=== PATIENT | female | born 1945 | race Caucasian/White ===

== ENCOUNTER 2021-04-18 12:00 | Outpatient (RCR) | payer MEDICARE, SELFPAY ==
--- NOTE | 2021-03-14 10:58 | HP.PTEVAL_ITS ---
Patient's Visit Information IVANA HERNANDEZ is a 75 year old F referred to Physical Therapy by Moody Parker, CLAY-C with a diagnosis of GAIT APRAXIA. Date of Evaluation: 03/14/21 Physical Therapist: Lennie Paredes, PT, Cert MDT - Visit Plan Frequency: 2x /Week Duration: 4-6 Weeks Plan: *FALL RISK* USE GAIT BELT. PATIENT IS RELUCTANT TO HAVE PT BUT WILLING. PT 2X'S A WEEK X 4-5 WEEKS FOR GAIT AND BALANCE TRAINING. CORE STABILITY WITH A NEUTRAL SPINE. BRIANNE LE ROM, STRETCHING AND STRENGTHENING. WRITTEN HEP INST. - Subjective Work/Leisure: RETIRED. Present symptoms: NO PAIN. PATIENT REPORTS SHE FELL A COUPLE TIMES BUT HASN'T FALLEN FOR THE LAST MONTH SINCE USING CANE. STATES SHE HAS FALLEN AT HER HOUSE AND AT [employer]. STATES SHE CAN'T GET UP ON HER OWN DUE TO HAVING BAD KNEES BUT DENIES INJURIES IN THE FALLS EXCEPT BRUISING AND KNEE SWELLING. DIDN'T GO TO DOCTOR UNTIL ABOUT 3 WEEKS AFTER FALL. HER DAUGHTER IS WITH HER TODAY AND REPORTS THAT THEY WANT HER MOM TO BE MORE STABLE. PATIENT REPORTS SHE LIVES A LONE AND DOES HER OWN SHOPPING. STATES SHE IS USING HER CANE ALMOST ALL THE TIME NOW EXCEPT A LITTLE BIT IN HER LIVING ROOM. Present since: BALANCE PROBLEMS FOR ABOUT 6 MONTHS. Commenced as a result of: PATIENT RELATES HER FALLS TO JUST LOSING HER BALANCE. NO DIZZINESS. STATES SHE GOT HER FEET MIXED UP. Previous history/Previous treatment: PATIENT REPORTS HAVING PT AT [facility] IN 2017 FOR BACK WEAKNESS. Gait: HAS BEEN USING A CANE FOR ABOUT A MONTH NOW. PATIENT REPORTS SHE FEELS STEADY WITH THE CANE. PATIENT REPORTS SHE IS MORE CAREFUL WALKING NOW BUT REALLY ISN'T WORRIED ABOUT FALLINIG ANYMORE NOW THAT SHE HAS THE CANE. Accidents: NO. Unexplained weight loss: NO. Imaging: NONE RECENT. PMH/Recent major surgery: L ANKLE ORIF YEARS AGO - IT SWELLS A LOT. BRIANNE SHLD LIMITATIONS. PATIENT REPORTS HER RIGHT KNEE HAS BEEN BAD FOR A LONG TIME AND SHE PROBABLY NEEDS IT REPLACED. OTHER: PATIENT REPORTS SHE IS HERE BECAUSE HER PRACTITIONER WANTS HER TO COME TO STRENGTHEN HER LEGS BUT STATES DUE TO PAST HISTORY WITH PT FOR POLIO SHE DOESN'T LIKE TO DO PT. OTHER: NO STEPS AT HOME. - Objective THIS PATIENT AMBULATES INDEP'LY INTO PT WITH A STRAIGHT CANE IN HER RIGHT UE. HER CANE IS THE RIGHT HEIGHT AND SHE IS SEQUENCING WELL. NO LOB. SHE WALKS WITH DECREASED CADANCE, DECREASED BRIANNE STRIDE LENGTH AND INCREASED TRUNK FLEXION. SIGNIFICANT GENU VALGUS RIGHT LE. L ANKLE EDEMA. STRENGTH: CORE STRENGTH - POOR. RIGHT LE: HIP 4-/5, KNEE 4-/5, ANKLE 5/5. LLE: HIP 4-/5, KNEE 5/5, ANKLE 4/5. ROM: PATIENT HAS TIGHTNESS OF BRIANNE HIP FLEXORS AND BRIANNE GASTROC SOLEUS COMPLEX'S LEFT > RIGHT. SHE IS ONLY ABLE TO SL BALANCE ON EACH LE FOR 1-2 SEC'S. - Goals Goal 1:: PATIENT WILL BE INDEP AND SAFE WITH GAIT ON LEVEL SURFACES WITH STRAIGHT CANE COMMUNITY DISTANCES. Goal Time Frame: 4-6 Weeks Goal 2:: PATIENT WILL BE INDEP WITH A HEP FOR CONTINUED IMPROVEMENT ONCE FORMAL PHYSICAL THERAPY CONCLUDES. Goal Time Frame: 4-6 Weeks - Anticipated Interventions Patient/Client Instruction: Educate patient on: Condition, Plan of Care, Risk Factors For the Purpose of:: To improve self management Therapeutic Exercise to Include: Strength training, Balance training, Postural training, Flexibilty training, Gait and locomotor training, Neuromotor development, Dynamic Lumbar Stabilization For the Purpose of:: To increase ROM, To improve muscle performance and motor function, To increase tolerance to activity/condition/position, To improve ability of physical actions for home/community/work/leisure, To improve gait and locomotor functions Thank you for the opportunity to evaluate your patient. For Medicare and Medicare HMO plans, please review the plan of care and approve it. It will need to be FAXED BACK to us at [phone] for Medicare purposes. For Medicare only, by signing this I certify the plan of care. Please let me know if there are questions or concerns regarding this plan of care. Physician Signature: Date:
--- NOTE | 2021-04-18 12:24 | HP.PTDCSUM ---
It has been my pleasure to treat IVANA HERNANDEZ referred by Moody Parker, CLAY-C, with the diagnosis of GAIT APRAXIA for a total of 9 visit(s). Discharge Date: Please see the following information for a summary of their discharge status. Subjective: I AM WALKING A LOT BETTER. PATIENT REPORTS SHE IS READY TO BE DONE WITH PT. STATES SHE ENDED UP ENJOYING PT. DOING HEP. % Improvement: 80 Objective/Function: PATIENT WAS SEEN TODAY FOR RE-ASSESSMENT OF PROGRESS TOWARD THE SET PT GOALS AND THE NEED FOR FURTHER PHYSICAL THERAPY VS READINESS FOR DISCHARGE. PATIENT IS MAKING GOOD PROGRESS WITH PT AND WANTS TO BE DISCHARGED. THIS PT RECOMMENDS CONTINUED USE OF CANE FOR SAFETY AND PATIENT IS AGREEABLE. UPON EXAM TODAY: STRENGTH: CORE STRENGTH - POOR. RIGHT LE: HIP 4/5, KNEE 4/5, ANKLE 5/5. LLE: HIP 4/5, KNEE 5/5, ANKLE 4/5. ROM: PATIENT HAS TIGHTNESS OF BRIANNE HIP FLEXORS AND BRIANNE GASTROC SOLEUS COMPLEX'S LEFT > RIGHT. SHE IS NOW ABLE TO SL BALANCE ON THE RIGHT LE X >10 SEC AND LEFT X 4 SEC WITHOUT UE ASSIST. TUG TEST 10.12 SEC. Goal 1:: PATIENT WILL BE INDEP AND SAFE WITH GAIT ON LEVEL SURFACES WITH STRAIGHT CANE COMMUNITY DISTANCES. Goal Progress: Progressing Goal 2:: PATIENT WILL BE INDEP WITH A HEP FOR CONTINUED IMPROVEMENT ONCE FORMAL PHYSICAL THERAPY CONCLUDES. Goal Progress: Progressing Plan: D/C - PATIENT AGREEABLE. If there are questions or concerns regarding this patient's physical therapy, please feel free to call me at [phone]. Thank you for the referral of this patient. Sincerely, Lennie Paredes, PT, Cert MDT Balance/Gait/Functional tests - Balance/Special Test Scores Lower Extremity Functional Score: 43
== END 2021-04-18 13:45 | disposition home or self-care (01) ==
LOC: PT 12:00
PROVIDERS: PCP Family Medicine; Referring Provider Nurse Practitioner Family; Visit Provider Nurse Practitioner Family
DX: R48.2 Apraxia (principal)
CPT/HCPCS: 97110; 97116; 97162; 97164; 97530

== ENCOUNTER → 2021-12-11 | Outpatient (CLI) | payer MEDICARE, SELFPAY ==
--- NOTE | 2021-12-11 09:47 | RAD_ITS ---
STUDY: XR Shoulder Min 2 Views REASON FOR EXAM: Female, 76 years old. PAIN TECHNIQUE: XR Shoulder Min 2 Views LEFT COMPARISON: None. FINDINGS: There is moderate degenerative arthrosis of the glenohumeral articulation. There is degenerative arthrosis of the acromioclavicular joint without inferior osseous spur formation. Normal acromion. There is an enthesopathic erosion of the humeral head. The soft tissue structures are unremarkable. Normal visualized pulmonary apex. RAD/Shoulder min 2 Views IMPRESSION: Elevated left humeral head with eburnation of the acromion suggest a chronic rotator cuff tear. Electronically Signed: Paul Shipman MD at 19:12 EDT ,
--- NOTE | 2021-12-11 09:47 | RAD_ITS ---
STUDY: XR Hand Min 3 Views REASON FOR EXAM: Female, 76 years old. PAIN TECHNIQUE: XR Hand Min 3 Views LEFT COMPARISON: None. FINDINGS: Normal radiocarpal articulation. Normal distal radioulnar joint. Normal visualized carpal bones. Normal carpal articulations Normal carpometacarpal articulation of the thumb. Normal second through fifth carpometacarpal joints. Normal metacarpi. Normal metacarpophalangeal joint of the thumb. Normal interphalangeal joint of the thumb. Normal proximal and distal phalanges of the thumb. Normal metacarpophalangeal joints of the second through fifth fingers. There is diffuse articular joint space narrowing of the distal interphalangeal joints of the second through fifth fingers, but without erosive changes or periarticular soft tissue swelling. Normal phalanges of the second through fifth fingers. 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 RAD/Hand Min 3 Views IMPRESSION: There is diffuse articular joint space narrowing of the distal interphalangeal joints of the second through fifth fingers, but without erosive changes or periarticular soft tissue swelling. Electronically Signed: Paul Shipman MD at 19:13 EDT Reading Location ID and State: [facility] / [place] , Service support ,
--- NOTE | 2021-12-11 09:47 | RAD_ITS ---
STUDY: XR Hand Min 3 Views REASON FOR EXAM: Female, 76 years old. PAININFLAMMATORY POLYARTHROPATHY TECHNIQUE: XR Hand Min 3 Views RIGHT COMPARISON: None. FINDINGS: Normal radiocarpal articulation. Normal distal radioulnar joint. Normal visualized carpal bones. Normal carpal articulations Normal carpometacarpal articulation of the thumb. Normal second through fifth carpometacarpal joints. Normal metacarpi. Normal metacarpophalangeal joint of the thumb. Normal interphalangeal joint of the thumb. Normal proximal and distal phalanges of the thumb. Normal metacarpophalangeal joints of the second through fifth fingers. There is diffuse articular joint space narrowing of the distal interphalangeal joints of the second through fifth fingers, but without erosive changes or periarticular soft tissue swelling. There is subluxation of the 3rd distal digit toward the radial side. The soft tissue structures are unremarkable. RAD/Hand Min 3 Views IMPRESSION: There is diffuse articular joint space narrowing of the distal interphalangeal joints of the second through fifth fingers, but without erosive changes or periarticular soft tissue swelling. There is subluxation of the 3rd distal digit toward the radial side. Electronically Signed: Paul Shipman MD at 19:14 EDT Reading Location ID and State: [facility] / [place] , Service support ,
--- NOTE | 2021-12-11 09:47 | RAD_ITS ---
STUDY: XR Shoulder Min 2 Views REASON FOR EXAM: Female, 76 years old. PAIN TECHNIQUE: XR Shoulder Min 2 Views RIGHT COMPARISON: None. FINDINGS: Normal glenohumeral articulation. Normal acromioclavicular joint. Normal acromion. Normal humeral head and visualized proximal humerus. The soft tissue structures are unremarkable. Normal visualized pulmonary apex. RAD/Shoulder min 2 Views IMPRESSION: There are no acute findings of the shoulder. Electronically Signed: Paul Shipman MD at 19:12 EDT ,
[2021-12-11 12:16] LABS: Erythrocyte Sedimentation Rate 12 mm/hr (0-30)
[2021-12-11 12:21] LABS: Absolute Lymphocyte Count 2.52 X10^3/uL (0.83-4.51); Absolute Neutrophil Count 5.8 X10^3/uL (2.0-7.7); Basophil% 1.1 % (0-1); Eosinophil# 0.26 X10^3/uL; Eosinophils% 2.7 % (0-5); Hematocrit 40.3 % (37-47); Hemoglobin 13.5 g/dL (12.0-15.0); Lymphocyte # 2.52 X10^3/ul (0.83-4.51); Lymphocyte % 26.5 % (19-41); Mean Corp Hgb Conc 33.5 g/dL (32-36); Mean Corpuscular Volume 95.5 fL (81-99); Mean Platelet Vol. 10.7 fl (6.2-12.0); Monocyte# 0.74 X10^3/uL; Monocyte% 7.8 % (0-10); NRBC Flagged by Analyzer 0 % (0-5); Neutrophil # 5.84 X10^3/uL (2.7-7.7); Neutrophil % 61.4 % (47-70); Platelet Count 273 K/mm3 (150-450); RBC Distribution Width CV 12.5 % (11.6-14.6); RBC Distribution Width SD 43.8 fl (35.1-43.9); Red Blood Count 4.22 M/mm3 (4.2-5.4); White Blood Count 9.5 K/mm3 (4.4-11.0)
[2021-12-11 12:56] LABS: ALB/GLOB Ratio 1.1 RATIO (0.9-2.4); AST(SGOT) 17 U/L (15-37); Alanine Aminotransfer ALT/SGPT 22 U/L (13-56); Albumin, Serum 3.7 g/dL (3.2-5.0); Alkaline Phosphatase 79 U/L (45-117); Anion Gap 5 (5-15); BUN 23 mg/dL (7-18); CRP < 2.90 mg/L (0.0-3.0); Calcium,Total 8.9 mg/dL (8.5-10.1); Chloride 105 mmol/L (98-107); Creatinine, Serum 0.88 mg/dL (0.55-1.02); EST Glomerular Filtration Rate 66 mL/min (>60); Est Glom Filt Rate - Afr Amer 80 mL/min (>60); Globulin 3.3 g/dL (2.2-4.2); Glucose 99 mg/dL (74-106); Potassium 4.1 mmol/L (3.5-5.1); Rheumatoid Factor < 10.0 IU/mL (<15); Sodium Level 137 mmol/L (136-145)
[2021-12-11 13:31] LABS: Hepatitis B Surface Antibody Non-Reactive; Hepatitis B Surface Antigen Non-Reactive (Nonreactive); Hepatitis C Antibody Non-Reactive (Nonreactive)
[2021-12-12 18:10] LABS: ANTINUCLEAR ANTIBODIES DIRECT Negative (Negative)
[2021-12-13 10:03] LABS: CCP IgG Antibodies < 1 units (0-19)
== END | disposition home or self-care (01) ==
LOC: MTLAB 09:45
PROVIDERS: PCP Nurse Practitioner Family; Referring Provider Internal Medicine Rheumatology; Visit Provider Internal Medicine Rheumatology
DX: M06.4 Inflammatory polyarthropathy (principal); E11.22 Type 2 diabetes mellitus with diabetic chronic kidney disease; M19.041 Primary osteoarthritis, right hand; M18.0 Bilateral primary osteoarthritis of first carpometacarpal joints; M17.0 Bilateral primary osteoarthritis of knee; M47.897 Other spondylosis, lumbosacral region; M21.41 Flat foot [pes planus] (acquired), right foot; M81.0 Age-related osteoporosis without current pathological fracture; G25.81 Restless legs syndrome; I12.9 Hypertensive chronic kidney disease with stage 1 through stage 4 chronic kidney disease, or unspecified chronic kidney disease; E78.5 Hyperlipidemia, unspecified; N18.9 Chronic kidney disease, unspecified
CPT/HCPCS: 36415; 73030; 73130; 80053; 85025; 85652; 86038; 86140; 86200; 86431; 86706; 86803; 87340

== ENCOUNTER 2021-12-18 09:00 | Outpatient (RCR) | payer MEDICARE, SELFPAY ==
--- NOTE | 2021-11-14 09:57 | HP.PTEVAL ---
Patient's Visit Information IVANA HERNANDEZ is a 76 year old F referred to Physical Therapy by Dr. Payam Harris MD with a diagnosis of LUMBAR SPINAL STENOSIS. Date of Evaluation: 11/14/21 Physical Therapist: Lennie Paredes PT, Cert MDT - Visit Plan Frequency: 2-3x /Week Duration: 4-6 Weeks Plan: GAIT TRAINING. POSTURE CORRECTION/STRENGTHENING, INSTRUCTION IN APPROPRIATE BODY MECHANICS AND ACTIVITY MODIFICATIONS. DLS STARTING WITH A NEUTRAL SPINE PROGRESSING ROM TOLERATED. BRIANNE LE ROM, STRETCHING AND STRENGTHENING. HEP INSTRUCTION. - Subjective PATIENT REPORTS SHE HAS BEEN DOING PRETTY GOOD. STATES SHE WENT TO DR. MENJIVAR FOR HER KNEE AND IT IS OK. WENT TO DR. HARRIS TOO AND SINCE HER KNEE IS OK THEY ARE CHECKING OUT HER BACK. Work/Leisure: RETIRED. Present symptoms: PATIENT REPORTS HER LOW BACK GETS TIRED BUT SHE WOULDN'T CALL IT PAIN. STATES SHE GOES AND DOES WHATEVER SHE WANTS BUT SOMETIMES HER NEEDS A BREAK. Present since: CHRONIC - LONG LONG TIME - I WAS STILL WORKING. Pain Scale: DENIES PAIN. Commenced as a result of: NO APPARENT REASON. Symptoms at onset: LOW BACK GETS TIRED. Worse: WALKING. Better: SITTING. Disturbed sleep: NO. Previous history/Previous treatment: MAYBE PT A LONG TIME AGO. NO BACK SURGERY. NO BACK INJECTIONS. NO CHIROPRACTOR. Coughing/sneezing/straining: NEGATIVE. Gait: UNLIMITED AND PAINFREE PER PATIENT REPORT BUT USES CANE OUTSIDE OF HOME. NO FALLS SINCE HAVING PT ABOUT A YEAR AGO FOR BALANCE. Difficulty initiating urination: NO. DENIES BOWEL AND BLADDER DYSFUNCTION EXCEPT SOME INCONTINENCE. Unexplained weight loss: NO. Imaging: BACK X-RAY A LONG TIME AGO. PMH/Recent major surgery: L ANKLE ORIF YEARS AGO - IT SWELLS A LOT. BRIANNE SHLD LIMITATIONS. PATIENT REPORTS HER RIGHT KNEE HAS BEEN BAD FOR A LONG TIME AND SHE PROBABLY NEEDS IT REPLACED BUT DR. HARRIS AND DR. MENJIVAR JUST CHECKED IT OUT AND SAID IT IS OK. OTHER: PATIENT STATES I DON'T KNOW WHY HE SENT ME OVER HERE SO SOON. I THINK I SHOULD HAVE HAD MRI FIRST. WILLING TO TRY PT THOUGH. APPOINTMENT PENDING WITH DR. ASH 10/28/21. H/O POLIO. LIVES ALONE. NO STEPS AT HOME. - Objective Sitting/Standing Posture: POOR. Lordosis: REDUCED. Active Correction of posture: NE BUT ONLY ABLE TO PARTIALLY CORRECT. PATIENT STATES THAT FEELS GOOD WHEN SUPPORT WAS PLACED IN LOW BACK IN SITTING. Other Observations: INDEP GAIT INTO PT WITH FAIR CADANCE, RIGHT KNEE GENU VALGUS, NO LOB, INCREASED TRUNK FLEXION AND USE OF STRAIGHT CANE. ABLE TO INDEP'LY TRANSFER FROM SIT TO STAND WITHOUT UE ASSIST. Motor deficit: BRIANNE LE'S GROSSLY 5/5 WITH MMT'ING EXCEPT HIPS 4/5. Sensory deficit: BRIANNE LE LIGHT TOUCH SENSATION GROSSLY INTACT AND SYMMETRICAL. ROM deficit: B HIP FLEXOR AND GASTROC SOLEUS COMPLEX TIGHTNESS. APPROX 25% DECREASED L ANKLE ROM COMPARED TO RIGHT. Dural Signs: NEGATIVE BRIANNE LE'S. Lumbar mvmt loss: flex - NIL. ext - SHAHEED. R SG - SHAHEED. L SG - MOD. PATIENT C/O STIFFNESS WITH LUMBAR EXTENSION TESTING BUT OTHERWISE DENIES SX'S WITH TESTING. OTHER: SLS TEST - PATIENT IS UNABLE TO SLS ON EITHER LE FOR MORE THAN 1-2 SEC WITHOUT UE ASSIST. Core strength: POOR. Palpation: NO ACUTE BACK OR HIP TENDERNESS. TREATMENT: NEUROMUSCULAR REEDUCATION - RETRAINING OF MVMT AND POSTURE FOR SITTING, LYING AND STANDING ACTIVITIES. - Balance/Special Test Scores Oswestry Low Back Score: 4 TUG Test Time Seconds: 11.43 30 Second Chair Rise Test Seconds: 9 - Goals Goal 1:: DECREASE C/O BACK FEELING TIRED WITH PROLONGED WALKING. Goal Time Frame: 4-6 Weeks Goal 2:: PATIENT WILL COMPLETE 13 STANDS IN 30 SECS TO DEMONSTRATE IMPROVED FUNCTIONAL STRENGTH Goal Time Frame: 4-6 Weeks Goal 3:: PATIENT WILL COMPLETE TUG IN 10 SECS TO DEMONSTRATE IMPROVED GAIT STABILITY Goal 4:: PATIENT WILL BE INDEP WITH A HEP FOR CONTINUED IMPROVEMENT ONCE FORMAL PHYSICAL THERAY CONCLUDES. Goal Time Frame: 4-6 Weeks - Anticipated Interventions Patient/Client Instruction: Educate patient on: Condition, Plan of Care, Risk Factors For the Purpose of:: To improve self management Therapeutic Exercise to Include: Strength training, Body mechanics, Postural training, Flexibilty training, Gait and locomotor training, Neuromotor development, Dynamic Lumbar Stabilization For the Purpose of:: To decrease pain, To improve muscle performance and motor function, To increase tolerance to activity/condition/position, To improve ability of physical actions for home/community/work/leisure, To improve gait and locomotor functions Thank you for the opportunity to evaluate your patient. For Medicare and Medicare O plans, please review the plan of care and approve it. It will need to be FAXED BACK to us at [phone] for Medicare purposes. For Medicare only, by signing this I certify the plan of care. Please let me know if there are questions or concerns regarding this plan of care. Physician Signature: Date:
--- NOTE | 2021-12-18 09:31 | HP.PTDCSUM_ITS ---
It has been my pleasure to treat IVANA HERNANDEZ referred by Dr. Payam Harris MD, with the diagnosis of LUMBAR SPINAL STENOSIS for a total of 8 visit(s). Discharge Date: Please see the following information for a summary of their discharge status. Subjective: PATIENT REPORTS SHE IS DOING GOOD AND DOES NOT FEEL SHE NEEDS ANY MORE PT AT THIS TIME. SHE REPORTS COMPLIANCE WITH HER HEP. PATIENT REPORTS SHE FEELS A LOT BETTER SINCE HAVING THERAPY THIS TIME. SHE REPORTS WALKING AND SLEEPING ARE GOING BETTER. SHE REPORTS SHE IS WALKING A LOT AT [facility]. Lumbar Spine Pain Intensity (Out of 10): 8 % Improvement: 60 Objective/Function: PATIENT WAS SEEN TODAY FOR RE-ASSESSMENT OF PROGRESS TOWARD THE SET PT GOALS AND THE NEED FOR FURTHER PHYSICAL THERAPY VS READINESS FOR DISCHARGE. HER TUG TEST AND 30 SEC CHAIR STAND TEST HAVE IMPROVED SINCE INITIAL EVAL. UPON EXAM TODAY: INDEP GAIT INTO PT WITH FAIR CADANCE, RIGHT KNEE GENU VALGUS, NO LOB, INCREASED TRUNK FLEXION AND USE OF STRAIGHT CANE. ABLE TO INDEP'LY TRANSFER FROM SIT TO STAND WITHOUT UE ASSIST. Motor deficit: BRIANNE LE'S GROSSLY 5/5 WITH MMT'ING EXCEPT HIPS 4/5. Sensory deficit: BRIANNE LE LIGHT TOUCH SENSATION GROSSLY INTACT AND SYMMETRICAL. ROM deficit: B HIP FLEXOR AND GASTROC SOLEUS COMPLEX TIGHTNESS. APPROX 25% DECREASED L ANKLE ROM COMPARED TO RIGHT. Dural Signs: NEGATIVE BRIANNE LE'S. Lumbar mvmt loss: flex - NIL. ext - SHAHEED. R SG - SHAHEED. L SG - MOD. PATIENT C/O STIFFNESS WITH LUMBAR EXTENSION TESTING BUT OTHERWISE DENIES SX'S WITH TESTING. OTHER: SLS TEST - PATIENT IS UNABLE TO SLS ON EITHER LE FOR MORE THAN 2-3 SEC WITHOUT UE ASSIST. Core strength: POOR. Palpation: NO ACUTE BACK OR HIP TENDERNESS. HER HEP INCLUDES THE FOLLOWING (WRITTEN HEP PROVIDED): AB Bracing 5, 2x12. Supine Brianne LE Dural Stretching 2x12 ea. AB bracing with marches 2x12. Supine iso hip add with pillow, 5 sec 2x12. Bridging 2x12. Sdly clams 2x12. Sdly reverse clams 2x12. Seated clamshells OTB 2x12. Seated OTB HS Curls. Standing hip abd 2x10 brianne Goal 1:: DECREASE C/O BACK FEELING TIRED WITH PROLONGED WALKING. Goal Progress: Goal Met Goal 2:: PATIENT WILL COMPLETE 13 STANDS IN 30 SECS TO DEMONSTRATE IMPROVED FUNCTIONAL STRENGTH Goal Progress: Progressing Goal 3:: PATIENT WILL COMPLETE TUG IN 10 SECS TO DEMONSTRATE IMPROVED GAIT STABILITY Goal Progress: Goal Met Goal 4:: PATIENT WILL BE INDEP WITH A HEP FOR CONTINUED IMPROVEMENT ONCE FORMAL PHYSICAL THERAY CONCLUDES. Goal Progress: Goal Met Plan: D/C TO HEP. PATIENT AGREEABLE. If there are questions or concerns regarding this patient's physical therapy, please feel free to call me at [phone]. Thank you for the referral of this patient. Sincerely, Lennie Paredes, PT, Cert MDT Balance/Gait/Functional tests - Balance/Special Test Scores Oswestry Low Back Score: 4 TUG Test Time Seconds: 9.97 Tug Test: <10 sec.=free mobile 30 Second Chair Rise Test Seconds: 11
== END 2021-12-18 09:33 | disposition home or self-care (01) ==
LOC: PT 09:00
PROVIDERS: PCP Family Medicine; Referring Provider Specialist; Visit Provider Specialist
DX: M48.07 Spinal stenosis, lumbosacral region (principal)
CPT/HCPCS: 97110; 97112; 97162; 97164

== ENCOUNTER → 2022-02-09 | Outpatient (CLI) | payer MEDICARE, SELFPAY ==
[2022-02-09 09:54] LABS: Absolute Lymphocyte Count 2.77 X10^3/uL (0.83-4.51); Absolute Neutrophil Count 5.2 X10^3/uL (2.0-7.7); Basophil# 0.08 X10^3/uL; Basophil% 0.9 % (0-1); Eosinophil# 0.29 X10^3/uL; Eosinophils% 3.2 % (0-5); Hematocrit 38.7 % (37-47); Hemoglobin 12.6 g/dL (12.0-15.0); Lymphocyte # 2.77 X10^3/ul (0.83-4.51); Lymphocyte % 30.3 % (19-41); Mean Corp Hgb Conc 32.6 g/dL (32-36); Mean Corpuscular Volume 98.2 fL (81-99); Mean Platelet Vol. 10.2 fl (6.2-12.0); Monocyte# 0.76 X10^3/uL; Monocyte% 8.3 % (0-10); NRBC Flagged by Analyzer 0 % (0-5); Neutrophil # 5.18 X10^3/uL (2.7-7.7); Neutrophil % 56.5 % (47-70); Platelet Count 260 K/mm3 (150-450); RBC Distribution Width CV 12.1 % (11.6-14.6); RBC Distribution Width SD 43.4 fl (35.1-43.9); Red Blood Count 3.94 M/mm3 (4.2-5.4); White Blood Count 9.2 K/mm3 (4.4-11.0)
[2022-02-09 10:47] LABS: ALB/GLOB Ratio 1.1 RATIO (0.9-2.4); AST(SGOT) 16 U/L (15-37); Alanine Aminotransfer ALT/SGPT 19 U/L (13-56); Albumin, Serum 3.5 g/dL (3.2-5.0); Alkaline Phosphatase 59 U/L (45-117); Anion Gap 9 (5-15); BUN 24 mg/dL (7-18); Calcium,Total 9.2 mg/dL (8.5-10.1); Chloride 104 mmol/L (98-107); Creatinine, Serum 0.75 mg/dL (0.55-1.02); EST Glomerular Filtration Rate 80 mL/min (>60); Est Glom Filt Rate - Afr Amer 97 mL/min (>60); Globulin 3.3 g/dL (2.2-4.2); Glucose 111 mg/dL (74-106); Potassium 3.8 mmol/L (3.5-5.1); Protein, Total 6.8 g/dL (6.4-8.2); Sodium Level 139 mmol/L (136-145)
== END | disposition home or self-care (01) ==
LOC: MTLAB 09:08
PROVIDERS: PCP Nurse Practitioner Family; Referring Provider Internal Medicine Rheumatology; Visit Provider Internal Medicine Rheumatology
DX: M06.4 Inflammatory polyarthropathy (principal); E11.22 Type 2 diabetes mellitus with diabetic chronic kidney disease; I12.9 Hypertensive chronic kidney disease with stage 1 through stage 4 chronic kidney disease, or unspecified chronic kidney disease; M19.041 Primary osteoarthritis, right hand; M18.0 Bilateral primary osteoarthritis of first carpometacarpal joints; M17.0 Bilateral primary osteoarthritis of knee; M47.897 Other spondylosis, lumbosacral region; M21.41 Flat foot [pes planus] (acquired), right foot; M21.42 Flat foot [pes planus] (acquired), left foot; M81.0 Age-related osteoporosis without current pathological fracture; G25.81 Restless legs syndrome; N18.9 Chronic kidney disease, unspecified; E78.5 Hyperlipidemia, unspecified; Z79.899 Other long term (current) drug therapy
CPT/HCPCS: 36415; 80053; 85025

== ENCOUNTER → 2022-04-06 | Outpatient (CLI) | payer MEDICARE, SELFPAY ==
[2022-04-06 10:05] LABS: Absolute Lymphocyte Count 2.72 X10^3/uL (0.83-4.51); Absolute Neutrophil Count 4.8 X10^3/uL (2.0-7.7); Basophil# 0.08 X10^3/uL; Basophil% 0.9 % (0-1); Eosinophils% 5.5 % (0-5); Hematocrit 38.3 % (37-47); Lymphocyte # 2.72 X10^3/ul (0.83-4.51); Lymphocyte % 29.7 % (19-41); Mean Corp Hgb Conc 33.9 g/dL (32-36); Mean Corpuscular Hgb 33.6 pg (27.0-32.0); Mean Platelet Vol. 10.1 fl (6.2-12.0); Monocyte# 0.97 X10^3/uL; Monocyte% 10.6 % (0-10); NRBC Flagged by Analyzer 0 % (0-5); Neutrophil # 4.83 X10^3/uL (2.7-7.7); Neutrophil % 52.6 % (47-70); Platelet Count 245 K/mm3 (150-450); RBC Distribution Width SD 49.6 fl (35.1-43.9); Red Blood Count 3.87 M/mm3 (4.2-5.4); White Blood Count 9.2 K/mm3 (4.4-11.0)
[2022-04-06 10:34] LABS: AST(SGOT) 21 U/L (15-37); Alanine Aminotransfer ALT/SGPT 22 U/L (13-56); Albumin, Serum 3.4 g/dL (3.2-5.0); Alkaline Phosphatase 71 U/L (45-117); Anion Gap 5 (5-15); BUN 21 mg/dL (7-18); BUN/Creat Ratio 25.9 RATIO (10-20); Calcium,Total 9.6 mg/dL (8.5-10.1); Chloride 104 mmol/L (98-107); Creatinine, Serum 0.81 mg/dL (0.55-1.02); EST Glomerular Filtration Rate 73 mL/min (>60); Est Glom Filt Rate - Afr Amer 88 mL/min (>60); Globulin 3.4 g/dL (2.2-4.2); Glucose 114 mg/dL (74-106); Potassium 3.7 mmol/L (3.5-5.1); Protein, Total 6.8 g/dL (6.4-8.2); Sodium Level 138 mmol/L (136-145)
== END | disposition home or self-care (01) ==
PROVIDERS: PCP Nurse Practitioner Family; Referring Provider Internal Medicine Rheumatology; Visit Provider Internal Medicine Rheumatology
DX: M06.4 Inflammatory polyarthropathy (principal); E11.22 Type 2 diabetes mellitus with diabetic chronic kidney disease; M19.041 Primary osteoarthritis, right hand; M19.042 Primary osteoarthritis, left hand; M18.0 Bilateral primary osteoarthritis of first carpometacarpal joints; M17.0 Bilateral primary osteoarthritis of knee; M47.897 Other spondylosis, lumbosacral region; M21.41 Flat foot [pes planus] (acquired), right foot; M21.42 Flat foot [pes planus] (acquired), left foot; M81.0 Age-related osteoporosis without current pathological fracture; G25.81 Restless legs syndrome; I12.9 Hypertensive chronic kidney disease with stage 1 through stage 4 chronic kidney disease, or unspecified chronic kidney disease; E78.5 Hyperlipidemia, unspecified; N18.9 Chronic kidney disease, unspecified; Z79.899 Other long term (current) drug therapy
CPT/HCPCS: 36415; 80053; 85025

== ENCOUNTER 2022-06-05 00:06 | Emergency (ER) | payer MEDICARE, SELFPAY ==
[2022-06-05 00:07] VITALS: BP 140/89; PULSE 80; RESP 18; TEMP 36.6; O2SAT 98; BMI 36.0
[2022-06-05 00:53] LABS: Absolute Lymphocyte Count 1.95 X10^3/uL (0.83-4.51); Absolute Neutrophil Count 6.3 X10^3/uL (2.0-7.7); Basophil# 0.06 X10^3/uL; Basophil% 0.6 % (0-1); Eosinophil# 0.31 X10^3/uL; Eosinophils% 3.3 % (0-5); Hematocrit 37.9 % (37-47); Hemoglobin 12.8 g/dL (12.0-15.0); Lymphocyte # 1.95 X10^3/ul (0.83-4.51); Lymphocyte % 20.6 % (19-41); Mean Corp Hgb Conc 33.8 g/dL (32-36); Mean Corpuscular Hgb 34.1 pg (27.0-32.0); Mean Corpuscular Volume 101.1 fL (81-99); Mean Platelet Vol. 9.9 fl (6.2-12.0); Monocyte% 8.4 % (0-10); NRBC Flagged by Analyzer 0 % (0-5); Neutrophil # 6.29 X10^3/uL (2.7-7.7); Neutrophil % 66.4 % (47-70); Platelet Count 269 K/mm3 (150-450); RBC Distribution Width CV 13.3 % (11.6-14.6); Red Blood Count 3.75 M/mm3 (4.2-5.4); White Blood Count 9.5 K/mm3 (4.4-11.0)
--- NOTE | 2022-06-05 00:55 | RAD_ITS ---
EXAM: XR CHEST, 2 VIEWS CLINICAL INDICATION: edema TECHNIQUE: Frontal and lateral views of the chest. This report was created using [employer] report generation technology. COMPARISON: None. FINDINGS: LUNGS AND PLEURAL SPACES: Markedly elevated right hemidiaphragm with adjacent subsegmental atelectasis. No consolidation. No pleural effusion or pneumothorax. HEART: Unremarkable. Cardiac silhouette not enlarged. MEDIASTINUM: Central airways and mediastinal contour are unremarkable. BONES/JOINTS: S-shaped curvature of the spine. Multilevel spine degenerative changes. SOFT TISSUES: Unremarkable. VASCULATURE: Mild to moderate tortuosity of the nonenlarged thoracic aorta. RAD/Chest PA and Lateral IMPRESSION: 1. No acute disease. 2. Markedly elevated right hemidiaphragm. Electronically Signed: Greg Amezquita MD at 1:12 EDT ,
[2022-06-05 01:12] LABS: AST(SGOT) 14 U/L (15-37); Alanine Aminotransfer ALT/SGPT 20 U/L (13-56); Albumin, Serum 3.5 g/dL (3.2-5.0); Alkaline Phosphatase 79 U/L (45-117); Anion Gap 10 (5-15); BUN 25 mg/dL (7-18); BUN/Creat Ratio 29.6 RATIO (10-20); Calcium,Total 9.2 mg/dL (8.5-10.1); Chloride 105 mmol/L (98-107); Creatinine, Serum 0.84 mg/dL (0.55-1.02); EST Glomerular Filtration Rate 70 mL/min (>60); Est Glom Filt Rate - Afr Amer 84 mL/min (>60); Estimated Creatinine Clearance 49.97 ml/min; Globulin 3.6 g/dL (2.2-4.2); Glucose 134 mg/dL (74-106); Potassium 3.6 mmol/L (3.5-5.1); Protein, Total 7.1 g/dL (6.4-8.2); Sodium Level 140 mmol/L (136-145)
[2022-06-05 01:30] LABS: BNP,B-Type NATRIURETIC PEPTIDE 20.6 pg/mL (0-100)
--- NOTE | 2022-06-05 01:47 | EDS_ITS ---
HPI History of Present Illness Chief Complaint: Edema Narrative Narrative: Patient is a 76-year-old female who presents to the ER with complaint of bilateral leg swelling. She states she had to have surgery on her left leg years ago and therefore the left leg is always kind of swollen. She states in the last 2 to 3 days however she has noticed increased swelling to both legs. She denies any history of liver disease or ascites. She denies any history of heart failure. She denies any history of DVT/PE but does states she had recent travel to and from the [place]. She states she is concerned she may have developed a blood clot because of her leg swelling and therefore comes in for evaluation. PFSH PFSH Allergy/AdvReac Type Severity Reaction Status Date / Time No Known Allergies Allergy Verified 06/05/22 00:09 Social History Smoking Status: Never smoker ROS ROS ED Constitutional Constitutional ED: Denies chills or fever(s) ENT ENT ED: Denies sore throat Cardiovascular Cardiovascular: Denies chest pain Respiratory/Chest Respiratory/Chest: Denies cough or dyspnea Gastrointestinal Gastrointestinal: Denies abdominal pain, diarrhea, nausea or vomiting Genitourinary Genitourinary ED: Denies dysuria Musculoskeletal Musculoskeletal: Reports other Details: Positive leg swelling ; Denies myalgias Integumentary Denies rash Neurologic Neurologic: Denies headache(s) Hematologic/Lymphatic Hematologic/Lymphatic: Denies easy bleeding or easy bruising EXAM Physical Exam Const Vital Signs: 06/05/22 00:07 06/05/22 00:06 Temperature 97.9 F Temperature Source Temporal Pulse Rate 80 Respiratory Rate 18 Respiratory Effort Normal Non-Labored Blood Pressure 140/89 H Blood Pressure Mean 106 Pulse Ox 98 Oxygen Delivery Method Room Air Positive well nourished, well developed and obese General Appearance ED: well developed Nutritional Appearance: obese HEENT Reports moist mucous membranes Eyes PERRL and EOMs intact bilaterally Neck supple and no JVD Resp normal respiratory effort and clear to auscultation bilaterally Cardio regular rate and regular rhythm Rate: other Other Details: Radial pulses are plus 2 out of 4 bilaterally are equal and symmetric GI normal to inspection, nondistended, normoactive bowel sounds, non-tender and non-distended GI Narrative: No voluntary guarding or rigidity. No pulsatile mass or fluid wave. Auscultation: normoactive bowel sounds Palpation: soft Extremity Extremity Narrative: Patient has trace to +1 pitting edema to the bilateral lower extremities that extends from dorsum of the feet to just below the knee. There is no overlying erythema or warmth to suggest infection and negative Homans' sign bilaterally. Neuro oriented x3 and CN's II-XII intact bilaterally Sensorium / Orientation: alert Psych mental status grossly normal Skin no rashes or lesions noted MDM MDM MDM Narrative Medical decision making narrative: Patient presented to the ER in no acute distress. She reported increased swelling to her bilateral legs but on exam there is no obvious findings to s uggest heart failure or ascites as the cause. She does have recent travel but no previous history of DVT and her exam does not suggest this. Basic blood work was obtained to check for decreased protein or albumin levels as a cause for third spacing as well as for heart failure. Labs revealed no clinically significant findings and chest x-ray revealed no acute lung changes such as pleural effusions to suggest fluid overload. I cannot perform a venous duplex at this time of night. Therefore patient will be given order form to have 1 done in the morning but as my concern for DVT is low I do not feel she warrants Lovenox at this time. Lab Data Attestation: I reviewed the patient's lab results. Labs: Laboratory Results - last 24 hr 06/05/22 06/05/22 06/05/22 00:22 00:22 00:22 WBC 9.5 RBC 3.75 L Hgb 12.8 Hct 37.9 MCV 101.1 H MCH 34.1 H MCHC 33.8 RDW Std Deviation 49.0 H RDW Coeff of Chandan 13.3 Plt Count 269 MPV 9.9 Immature Gran % (Auto) 0.700 Neut % (Auto) 66.4 Lymph % (Auto) 20.6 [place] % (Auto) 8.4 Eos % (Auto) 3.3 Baso % (Auto) 0.6 Absolute Neuts (auto) 6.3 Absolute Lymphs (auto) 1.95 Nucleated RBC % 0 Sodium 140 Potassium 3.6 Chloride 105 Carbon Dioxide 25.0 Anion Gap 10 BUN 25 H Creatinine 0.84 Estim Creat Clear Calc 49.97 Est GFR (MDRD) Af Amer 84 Est GFR (MDRD) Non-Af 70 BUN/Creatinine Ratio 29.6 H Glucose 134 H Calcium 9.2 Total Bilirubin 0.50 Direct Bilirubin 0.10 AST 14 L ALT 20 Alkaline Phosphatase 79 B-Natriuretic Peptide 20.6 Total Protein 7.1 Albumin 3.5 Globulin 3.6 Radiography Diagnostic Testing: Clinical Impression(s) from Imaging Studies Chest X-Ray 06/05/22 00:55 IMPRESSION: 1. No acute disease. 2. Markedly elevated right hemidiaphragm. Electronically Signed: Greg Amezquita MD at 1:12 EDT , Chest x-ray as interpreted by the emergency medicine physician reveals a elevated right hemidiaphragm without infiltrate pneumothorax or pleural effusion Discharge Plan Triage Chief Complaint: Edema ED Provider: Greg Rose Dx/Rx/DC Orders Clinical Impression: Peripheral edema, Hypertension Instructions: ED Peripheral Edema, Bilateral Other Ambulatory Orders: Venous Duplex US - Minesh Extrem (Stat) Facility: [facility] - Location: [facility] Ordered By: Dr. Greg Rose Primary Care Provider: Moody Parker NP Referrals: Moody Parker [facility], [facility] [Primary Care Provider] - Activity Restrictions/Additional Instructions: Please return to the hospital for your outpatient venous duplex to ensure there is no DVT/blood clot as a cause of your swelling. However your exam today does not show any focal findings and follow-up with your family doctor to discuss further testing options or treatment strategies. If you have any further concerns please return to the ER for repeat evaluation Disposition Disposition: Home, Self Care Discharge Date/Time: 06/05/22 01:55
== END 2022-06-05 01:55 | disposition home or self-care (01) ==
PROVIDERS: Emergency Provider Emergency Medicine; PCP Nurse Practitioner Family; Visit Provider Emergency Medicine
DX: R60.0 Localized edema (principal); I10 Essential (primary) hypertension; E66.9 Obesity, unspecified; Z68.36 Body mass index [BMI] 36.0-36.9, adult; Z79.899 Other long term (current) drug therapy
CPT/HCPCS: 99282; 71046; 80048; 80076; 83880; 85025; A4216

== ENCOUNTER → 2022-06-05 | Outpatient (CLI) | payer MEDICARE, SELFPAY ==
--- NOTE | 2022-06-05 10:44 | VDLE_ITS ---
Reason For Study: Swelling RIGHT LEFT GSV is normal. GSV is normal. CFV is compressible, spontaneous, phasic, CFV is compressible, spontaneous, phasic, competent and demonstrates normal competent, and demonstrates normal augmentation. augmentation. FV is compressible, spontaneous, phasic, FV is compressible, spontaneous, phasic, competent and demonstrates normal competent and demonstrates normal augmentation. augmentation. POP V is compressible, spontaneous, phasic, POP V is compressible, spontaneous, phasic, competent and demonstrates normal competent and demonstrates normal augmentation. augmentation. T/P Trunk is compressible. T/P Trunk is compressible. PTV is compressible. PTV is compressible. RT PerV is compressible. LT PerV is compressible. Hypoechoic, non vascular structure noted Rt Lt GastrocV is dilated and non compressible Pop Fossa measuring 1.74cm x 4.74cm. consistent with acute DVT Procedure This is a venous duplex using B-mode, color Hypoechoic, non vascular structure noted Lt flow and spectral Doppler. Pop Fossa measuring 3.07cm x 0.86cm. Exam performed in department. A preliminary report was called and/or faxed to Flor BRENNAN. VL/Venous Duplex US - Minesh Extrem Interpretation Summary Acute deep vein thrombosis is noted in the left gastrocnemius vein. Deep veins of the right lower extremity are patent and compressible segmentally . There is no evidence of right lower extremity deep vein thrombosis. Hypoechoic, non vascular structure noted Right Popliteal Fossa measuring 1.74cm x 4.74cm. Hypoechoic, non vascular structure noted Left Popliteal Fossa measuring 3.07cm x 0.86cm. Ordering Physician: Greg Rose Referring Physician: Moody Parker Performed By: Anuradha Sanchez, RDCS, RVT
== END | disposition home or self-care (01) ==
LOC: CVS 10:43
PROVIDERS: PCP Nurse Practitioner Family; Referring Provider Emergency Medicine; Visit Provider Emergency Medicine
DX: I82.462 Acute embolism and thrombosis of left calf muscular vein (principal); I10 Essential (primary) hypertension; E66.9 Obesity, unspecified; Z68.36 Body mass index [BMI] 36.0-36.9, adult; Z79.899 Other long term (current) drug therapy
CPT/HCPCS: 71046; 80048; 80076; 83880; 85025; 93970; 99282; A4216

== ENCOUNTER → 2022-07-03 | Outpatient (CLI) | payer MEDICARE, SELFPAY ==
[2022-07-03 12:22] LABS: Absolute Lymphocyte Count 2.39 X10^3/uL (0.83-4.51); Absolute Neutrophil Count 3.6 X10^3/uL (2.0-7.7); Basophil# 0.05 X10^3/uL; Basophil% 0.7 % (0-1); Eosinophil# 0.33 X10^3/uL; Eosinophils% 4.7 % (0-5); Hematocrit 38.4 % (37-47); Hemoglobin 12.5 g/dL (12.0-15.0); Lymphocyte # 2.39 X10^3/ul (0.83-4.51); Lymphocyte % 34.2 % (19-41); Mean Corp Hgb Conc 32.6 g/dL (32-36); Mean Corpuscular Hgb 33.3 pg (27.0-32.0); Mean Corpuscular Volume 102.4 fL (81-99); Mean Platelet Vol. 10.1 fl (6.2-12.0); Monocyte# 0.63 X10^3/uL; NRBC Flagged by Analyzer 0 % (0-5); Neutrophil # 3.57 X10^3/uL (2.7-7.7); Neutrophil % 51.1 % (47-70); Platelet Count 254 K/mm3 (150-450); RBC Distribution Width CV 12.8 % (11.6-14.6); RBC Distribution Width SD 47.3 fl (35.1-43.9); Red Blood Count 3.75 M/mm3 (4.2-5.4)
[2022-07-03 12:43] LABS: AST(SGOT) 26 U/L (15-37); Alanine Aminotransfer ALT/SGPT 31 U/L (13-56); Albumin, Serum 3.5 g/dL (3.2-5.0); Alkaline Phosphatase 68 U/L (45-117); Anion Gap 8 (5-15); BUN 21 mg/dL (7-18); BUN/Creat Ratio 23.7 RATIO (10-20); Calcium,Total 9.4 mg/dL (8.5-10.1); Chloride 105 mmol/L (98-107); Creatinine, Serum 0.88 mg/dL (0.55-1.02); EST Glomerular Filtration Rate 66 mL/min (>60); Est Glom Filt Rate - Afr Amer 80 mL/min (>60); Globulin 3.4 g/dL (2.2-4.2); Glucose 126 mg/dL (74-106); Potassium 3.3 mmol/L (3.5-5.1); Protein, Total 6.9 g/dL (6.4-8.2); Sodium Level 140 mmol/L (136-145)
== END | disposition home or self-care (01) ==
LOC: MTLAB 10:22
PROVIDERS: PCP Nurse Practitioner Family; Referring Provider Internal Medicine Rheumatology; Visit Provider Internal Medicine Rheumatology
DX: M06.4 Inflammatory polyarthropathy (principal); E11.22 Type 2 diabetes mellitus with diabetic chronic kidney disease; M19.041 Primary osteoarthritis, right hand; M18.0 Bilateral primary osteoarthritis of first carpometacarpal joints; M17.0 Bilateral primary osteoarthritis of knee; M47.897 Other spondylosis, lumbosacral region; M81.0 Age-related osteoporosis without current pathological fracture; I12.9 Hypertensive chronic kidney disease with stage 1 through stage 4 chronic kidney disease, or unspecified chronic kidney disease; E78.5 Hyperlipidemia, unspecified; N18.9 Chronic kidney disease, unspecified; Z79.899 Other long term (current) drug therapy
CPT/HCPCS: 36415; 80053; 85025

== ENCOUNTER → 2022-08-06 | Outpatient (CLI) | payer MEDICARE, SELFPAY ==
[2022-08-06 10:05] LABS: Absolute Lymphocyte Count 2.99 X10^3/uL (0.83-4.51); Absolute Neutrophil Count 4.9 X10^3/uL (2.0-7.7); Basophil# 0.08 X10^3/uL; Basophil% 0.9 % (0-1); Eosinophil# 0.27 X10^3/uL; Eosinophils% 2.9 % (0-5); Hemoglobin 13.2 g/dL (12.0-15.0); Lymphocyte # 2.99 X10^3/ul (0.83-4.51); Lymphocyte % 32.5 % (19-41); Mean Corp Hgb Conc 32.2 g/dL (32-36); Mean Corpuscular Hgb 32.8 pg (27.0-32.0); Mean Corpuscular Volume 101.7 fL (81-99); Mean Platelet Vol. 10.5 fl (6.2-12.0); Monocyte# 0.96 X10^3/uL; Monocyte% 10.4 % (0-10); NRBC Flagged by Analyzer 0 % (0-5); Neutrophil # 4.85 X10^3/uL (2.7-7.7); Neutrophil % 52.9 % (47-70); Platelet Count 289 K/mm3 (150-450); RBC Distribution Width CV 12.4 % (11.6-14.6); RBC Distribution Width SD 46.3 fl (35.1-43.9); Red Blood Count 4.03 M/mm3 (4.2-5.4); White Blood Count 9.2 K/mm3 (4.4-11.0)
[2022-08-06 10:42] LABS: ALB/GLOB Ratio 1.3 RATIO (0.9-2.4); AST(SGOT) 17 U/L (15-37); Alanine Aminotransfer ALT/SGPT 19 U/L (13-56); Albumin, Serum 3.7 g/dL (3.2-5.0); Alkaline Phosphatase 68 U/L (45-117); Anion Gap 7 (5-15); BUN 19 mg/dL (7-18); BUN/Creat Ratio 24.2 RATIO (10-20); Calcium,Total 9.2 mg/dL (8.5-10.1); Chloride 103 mmol/L (98-107); Creatinine, Serum 0.78 mg/dL (0.55-1.02); EST Glomerular Filtration Rate 76 mL/min (>60); Est Glom Filt Rate - Afr Amer 92 mL/min (>60); Globulin 2.9 g/dL (2.2-4.2); Glucose 124 mg/dL (74-106); Potassium 3.7 mmol/L (3.5-5.1); Protein, Total 6.6 g/dL (6.4-8.2); Sodium Level 138 mmol/L (136-145)
== END | disposition home or self-care (01) ==
LOC: MFPLAB 08:11
PROVIDERS: PCP Family Medicine; Referring Provider Family Medicine; Visit Provider Family Medicine
DX: B35.1 Tinea unguium (principal)
CPT/HCPCS: 36415; 80053; 85025

== ENCOUNTER → 2022-10-27 | Outpatient (CLI) | payer MEDICARE, SELFPAY | END | disposition home or self-care (01) | PROVIDERS: PCP Family Medicine; Visit Provider Family Medicine | DX: R35.0 Frequency of micturition (principal) | CPT/HCPCS: 87086; 87088 ==

== ENCOUNTER → 2022-11-13 | Outpatient (CLI) | payer MEDICARE, SELFPAY ==
[2022-11-13 09:57] LABS: Absolute Lymphocyte Count 2.89 X10^3/uL (0.83-4.51); Absolute Neutrophil Count 5.4 X10^3/uL (2.0-7.7); Basophil# 0.08 X10^3/uL; Basophil% 0.8 % (0-1); Eosinophil# 0.24 X10^3/uL; Eosinophils% 2.5 % (0-5); Hematocrit 41.9 % (37-47); Hemoglobin 13.7 g/dL (12.0-15.0); Lymphocyte # 2.89 X10^3/ul (0.83-4.51); Lymphocyte % 30.7 % (19-41); Mean Corp Hgb Conc 32.7 g/dL (32-36); Mean Corpuscular Hgb 31.9 pg (27.0-32.0); Mean Corpuscular Volume 97.4 fL (81-99); Mean Platelet Vol. 10.5 fl (6.2-12.0); Monocyte# 0.82 X10^3/uL; Monocyte% 8.7 % (0-10); NRBC Flagged by Analyzer 0 % (0-5); Neutrophil # 5.36 X10^3/uL (2.7-7.7); Platelet Count 271 K/mm3 (150-450); RBC Distribution Width CV 11.9 % (11.6-14.6); RBC Distribution Width SD 42.5 fl (35.1-43.9); White Blood Count 9.4 K/mm3 (4.4-11.0)
[2022-11-13 10:24] LABS: ALB/GLOB Ratio 0.9 RATIO (0.9-2.4); AST(SGOT) 21 U/L (15-37); Alanine Aminotransfer ALT/SGPT 21 U/L (13-56); Albumin, Serum 3.4 g/dL (3.2-5.0); Alkaline Phosphatase 65 U/L (45-117); Anion Gap 8 (5-15); BUN 24 mg/dL (7-18); BUN/Creat Ratio 25.6 RATIO (10-20); Calcium,Total 9.7 mg/dL (8.5-10.1); Chloride 103 mmol/L (98-107); Cholesterol 169 mg/dL (200); Creatinine, Serum 0.94 mg/dL (0.55-1.02); EST Glomerular Filtration Rate 62 mL/min (>60); Est Glom Filt Rate - Afr Amer 75 mL/min (>60); Globulin 3.6 g/dL (2.2-4.2); Glucose 122 mg/dL (74-106); High Density Lipoprotein 45 mg/dL; Magnesium 1.6 mg/dL (1.6-2.6); Potassium 3.4 mmol/L (3.5-5.1); Sodium Level 137 mmol/L (136-145); Thyroid Stim Hormone (TSH) 1.75 uIU/mL (0.358-3.74); Triglycerides 142 mg/dL; Very Low Density Lipoprotein 28 mg/dL (5-40)
[2022-11-13 10:26] LABS: Hemoglobin A1c 6.2 % (3.8-5.6)
[2022-11-13 10:47] LABS: Vitamin B12 311 pg/mL (211-911); Vitamin D,25 Hydroxy 53.3 ng/mL
== END | disposition home or self-care (01) ==
LOC: MFPLAB 08:27
PROVIDERS: PCP Family Medicine; Referring Provider Family Medicine; Visit Provider Family Medicine
DX: Z13.220 Encounter for screening for lipoid disorders (principal); R25.2 Cramp and spasm; R73.09 Other abnormal glucose
CPT/HCPCS: 36415; 80053; 80061; 82306; 82607; 83036; 83735; 84443; 85025

== ENCOUNTER → 2022-11-26 | Outpatient (CLI) | payer MEDICARE, SELFPAY ==
--- NOTE | 2022-11-26 10:36 | ART_ITS ---
Reason For Study: LEG PAIN Procedure A bilateral lower extremity continuous wave Doppler with analog waveform analysis,segmental pressures,and ankle brachial indexes without exercise. Left Segmental Pressures Left brachial= 145mmHg. Left posterior tibial artery = 180mmHg. Left dorsalis pedis artery = 147mmHg. The left posterior tibial artery waveforms are triphasic. The left dorsalis pedis waveforms are triphasic. Right Segmental Pressures Right brachial= 146mmHg. Right posterior tibial artery = 156mmHg. Right dorsalis pedis artery = 159mmHg. The right posterior tibial artery waveforms are triphasic. The right dorsalis pedis waveforms are triphasic. Indices The right ankle brachial index by the posterior tibial artery is 1.07. The right ankle brachial index by the dorsalis pedis is 1.09. The left ankle brachial index by the posterior tibial artery is 1.23. The left ankle brachial index by the dorsalis pedis is 1.01. VL/Lower Ext Art Exam w/ Exercise Interpretation Summary Triphasic Doppler waveforms are noted at ankle level bilaterally. Pulse-volume recordings appear satisfactory at low thigh, calf, and ankle levels bilaterally. Resting ankle-br achial indices are normal bilaterally. There is no evidence of significant arterial occlusive disease in the lower ext remities bilaterally. Ordering Physician: Adenike Zapata Referring Physician: MARIJA ZAPATA DO Performed By: Steven Goss RVT
== END | disposition home or self-care (01) ==
LOC: CVS 10:34
PROVIDERS: PCP Family Medicine; Visit Provider Family Medicine
DX: I73.9 Peripheral vascular disease, unspecified (principal)
CPT/HCPCS: 93924

== ENCOUNTER 2022-12-16 19:24 | Inpatient (IN) | payer MEDICARE, SELFPAY ==
[2022-12-16 19:25] VITALS: BP 118/67; PULSE 78; RESP 18; TEMP 36.6; O2SAT 98; BMI 39.4
[2022-12-16 19:40] LABS: Absolute Lymphocyte Count 2.27 X10^3/uL (0.83-4.51); Basophil# 0.06 X10^3/uL; Basophil% 0.5 % (0-1); Eosinophil# 0.16 X10^3/uL; Eosinophils% 1.2 % (0-5); Hematocrit 42.6 % (37-47); Lymphocyte # 2.27 X10^3/ul (0.83-4.51); Lymphocyte % 17.7 % (19-41); Mean Corp Hgb Conc 32.9 g/dL (32-36); Mean Corpuscular Hgb 31.1 pg (27.0-32.0); Mean Corpuscular Volume 94.7 fL (81-99); Mean Platelet Vol. 10.3 fl (6.2-12.0); Monocyte# 1.26 X10^3/uL; Monocyte% 9.8 % (0-10); NRBC Flagged by Analyzer 0 % (0-5); Neutrophil # 9.03 X10^3/uL (2.7-7.7); Neutrophil % 70.5 % (47-70); Platelet Count 227 K/mm3 (150-450); RBC Distribution Width CV 12.2 % (11.6-14.6); RBC Distribution Width SD 42.6 fl (35.1-43.9); White Blood Count 12.8 K/mm3 (4.4-11.0)
[2022-12-16 19:50] LABS: Partial Thromboplast Time 36.2 Seconds (24.1-36.2)
[2022-12-16 20:03] LABS: Anion Gap 9 (5-15); BUN 26 mg/dL (7-18); Calcium,Total 9.2 mg/dL (8.5-10.1); Chloride 104 mmol/L (98-107); Creatinine, Serum 1.18 mg/dL (0.55-1.02); EST Glomerular Filtration Rate 47 mL/min (>60); Est Glom Filt Rate - Afr Amer 57 mL/min (>60); Estimated Creatinine Clearance 29.13 ml/min; Glucose 117 mg/dL (74-106); Potassium 3.7 mmol/L (3.5-5.1); Sodium Level 135 mmol/L (136-145)
--- NOTE | 2022-12-16 20:51 | EX.ED.DYSGE1 ---
HPI History of Present Illness Chief Complaint: GI Bleed Narrative Narrative: 77-year-old female here with 2 days of bloody diarrhea. She states she is on a blood thinner. She states she last took Eliquis this morning. She denies lightheadedness, syncope, chest pain, shortness of breath or fatigue. Denies recent hospitalizations or antibiotic use. Denies abdominal pain trouble urinating or vaginal bleeding. She no she is on Eliquis secondary to DVT she suffered in September. PFSH PFSH Allergy/AdvReac Type Severity Reaction Status Date / Time No Known Allergies Allergy Verified 12/16/22 19:27 Social History Smoking Status: Never smoker ROS ROS ED ROS Narrative Constitutional: Denies fever HEENT: Denies sore throat Neck: Denies neck pain Cardiovascular: Denies chest pain, syncope Respiratory: Denies shortness of breath GI: Denies nausea vomiting or abdominal pain. Endorses diarrhea, endorses bloody diarrhea : Denies changes in urinary habits Musculoskeletal: Denies muscle or joint pain Neurologic: Denies numbness weakness or loss of sensation Skin denies rash EXAM Physical Exam Narrative Exam Narrative: Nursing triage notes reviewed, Vital signs reviewed Constitutional: please see mdm HENT: MMM Eyes: Pupils equal round and reactive to light, Extraocular muscles intact Neck: No stridor, no JVD, full neck ROM Lungs: Clear to auscultation, No wheezing or rales. No increased work of breathing, no conversational dyspnea, no accessory muscle use, no nasal flaring. No respiratory distress noted Heart: Regular rate and rhythm, No murmurs, No rubs and No gallops, 2+ distal pulses (radial, femoral, posterior tibial) in all extremities Abdomen: Soft, there is no tenderness, rigidity, rebound or guarding, no obvious peritoneal signs, no palpable pulsatile abdominal masses, no auscultated abdominal bruit : No CVAT Rectal: No obvious bleeding, no david melena or hematochezia noted on exam Extremities: No edema Neuro: No focal neurological deficits, cranial nerves II through XII intact, 5/5 strength in all extremities. Intact sensation to light touch in all extremities, 2+ reflexes bilateral patella dens. Normal gait. No ataxia. Skin: No rash or lesions noted Const Vital Signs: 12/16/22 19:25 Temperature 97.9 F Temperature Source Temporal Pulse Rate 78 Respiratory Rate 18 Blood Pressure 118/67 Blood Pressure Mean 84 Pulse Ox 98 Oxygen Delivery Method Room Air MDM MDM MDM Narrative Medical decision making narrative: Chief Complaint: Bloody diarrhea External records reviewed: No blood thinners noted in the chart MDM: Patient was hemodynamically stable, afebrile, nontoxic-appearing. Rectal exam without obvious hemorrhoids, david melena or hematochezia. I considered the following differential diagnosis: GI bleed, dehydration, anemia, electrolyte abnormalities Labs without coagulopathy, dehydration, significant anemia. Patient was Hemoccult positive. I did consult gastroenterology Dr. Rausch recommended admission for urgent EGD/colonoscopy. He recommends admission to medicine. Discussed case with the internal medicine physician Dr. Vaughn who agreed to admit the patient Factors affecting care: On Eliquis Social determinants of health: Elderly History obtained from others: The patient's daughter Shared decision making: I will have a discussion with the patient and or visitors regarding risk/benefits of further testing or admission. They will be made aware of of the risk/benefits inherent in this decision they will be given the opportunity to voice understanding. Consults: Internal medicine, Gastroenterology Lab Data Labs: Laboratory Results - last 24 hr 12/16/22 12/16/22 12/16/22 19:33 19:33 19:33 WBC 12.8 H RBC 4.50 Hgb 14.0 Hct 42.6 MCV 94.7 MCH 31.1 MCHC 32.9 RDW Std Deviation 42.6 RDW Coeff of Chandan 12.2 Plt Count 227 MPV 10.3 Immature Gran % (Auto) 0.300 Neut % (Auto) 70.5 H Lymph % (Auto) 17.7 L [place] % (Auto) 9.8 Eos % (Auto) 1.2 Baso % (Auto) 0.5 Absolute Neuts (auto) 9.0 H Absolute Lymphs (auto) 2.27 Nucleated RBC % 0 APTT 36.2 Sodium 135 L Potassium 3.7 Chloride 104 Carbon Dioxide 22.0 Anion Gap 9 BUN 26 H Creatinine 1.18 H Estim Creat Clear Calc 29.13 Est GFR (MDRD) Af Amer 57 L Est GFR (MDRD) Non-Af 47 L BUN/Creatinine Ratio 22.0 H Glucose 117 H Calcium 9.2 Discharge Plan Triage Chief Complaint: GI Bleed ED Provider: Km Terrell Dx/Rx/DC Orders Primary Care Provider: Adenike Mcghee Referrals: Adenike Mcghee, DO [Primary Care Provider] -
[2022-12-16 22:59] VITALS: BP 111/63; PULSE 86; RESP 15; TEMP 36.2; O2SAT 97
--- NOTE | 2022-12-16 23:18 | PCM.HP.STD ---
HPI - General General Date of Admission: 12/16/22 Date of Service: 12/16/22 Chief Complaint: Diarrhea, bloody x 2 days. HPI Narrative The patient is a 77 y/o F w/ PMHx: GERD, Recent 09/2022 DVT LE diagnosis on Eliquis, HTN, HLD, CKD stage II, RLS, Rheumatoid arthritis, Obesity who presents to the [facility] ED on 12/16/22 with history of 2-day history of persistent loose stools of at least up to 6 if not more bouts a day with no associated abdominal cramping, nausea, emesis, fever or chills but she does report that the stool color has varied from dark red to dark brown with no associated lightheadedness or dizziness but given ongoing symptoms on anticoagulant therapy prompted ED evaluation. Patient denies ever having a similar presentation like this in the past. Patient does report that her last oral anticoagulant was on a.m. of day of presentation but she did not take the evening dose. She does report decreased oral intake but not because of a lack of appetite, primarily because she wanted to avoid having diarrhea. Work up in the ED included T97.9, heart rate 78, BP 118/67, respiratory rate 18, 98% on room air, CBC with WBC 12.8, hemoglobin 14, platelets 227 with left shift, BMP with sodium 135, BUN/creatinine 26/1.18, glucose 117, positive stool guaiac assessment. Given patient history and advanced age on anticoagulant therapy ED did discuss case with Dr. Rausch gastroenterology who recommended admission with a bowel prep and planned endoscopy in AM. [facility] Medical History Chronic neuropathic pain DVT (deep venous thrombosis) HLD (hyperlipidemia) Hypertension Rheumatoid arthritis RLS (restless legs syndrome) Home Medications apixaban 5 mg tablet (Eliquis) 5 mg PO BID DVT 12/17/22 [History Last Taken 12/16/22] celecoxib 200 mg capsule 200 mg PO DAILY pain 12/17/22 [History Last Taken 12/16/22] gabapentin 100 mg capsule 100 mg PO BID neuropathy 12/17/22 [History Last Taken 12/16/22] ropinirole 1 mg tablet 1 mg PO QHS restless legs 12/17/22 [History Last Taken 12/15/22] rosuvastatin 10 mg tablet 10 mg PO QHS cholesterol 12/17/22 [History Last Taken 12/15/22] telmisartan 80 mg-hydrochlorothiazide 25 mg tablet 1 tab PO DAILY HTN 12/17/22 [History Last Taken 12/16/22] Allergy/AdvReac Type Severity Reaction Status Date / Time No Known Allergies Allergy Verified 12/16/22 19:27 Family History (Updated 12/17/22 @ 02:[address] Promise Vaughn MD) Mother Pancreatic cancer Father Heart disease Hypertension Surgical History (Updated 12/17/22 @ 02:[address] Promise Vaughn MD) H/O: hysterectomy History of ankle surgery History of tonsillectomy and adenoidectomy Social History (Updated 12/17/22 @ 02:[address] Promise Vaughn MD) household members: none Smoking Status: Never smoker alcohol intake: never substance use type: does not use ROS ROS Narrative Admission Review of Systems: CONSTITUTIONAL: No weight loss, fever, chills, weakness or fatigue. HEENT: Eyes: No visual loss, blurred vision, double vision or yellow sclerae. Ears, Nose, Throat: No hearing loss, sneezing, congestion, runny nose or sore throat. SKIN: No rash or itching, lesions, wounds. CARDIOVASCULAR: No chest pain, chest pressure or chest discomfort, palpitations, edema, orthopnea, syncopal events. RESPIRATORY: No shortness of breath, cough or sputum, wheezing, hemoptysis. GASTROINTESTINAL: + Persistent diarrhea with stools ranging from dark brown to dark red, admitted anorexia primarily to avoid diarrhea. No nausea, vomiting, abdominal pain, melena, BRBPR. GENITOURINARY: No dysuria, frequency, urgency or retention. NEUROLOGICAL: + RLS, chronic neuropathy. No headache, dizziness, syncope, paralysis, ataxia, numbness or tingling in the extremities, focal weakness, change in bowel or bladder control, seizure. MUSCULOSKELETAL: + muscle, back pain, joint pain or stiffness. HEMATOLOGIC: + anemia, bleeding or bruising. LYMPHATICS: No enlarged nodes. No history of splenectomy. PSYCHIATRIC: No history of depression or anxiety. ENDOCRINOLOGIC: No reports of sweating, cold or heat intolerance. No polyuria or polydipsia. ALLERGIES: No history of asthma, hives, eczema or rhinitis. Vital Signs Vital Signs Vital Signs: 12/16/22 19:25 12/16/22 22:59 Temperature 97.9 F 97.2 F L Temperature Source Temporal Oral Pulse Rate 78 86 Respiratory Rate 18 15 Blood Pressure 118/67 111/63 Blood Pressure Mean 84 79 Pulse Ox 98 97 Oxygen Delivery Method Room Air Room Air Weight Weight: 201 lb 15.095 oz Body Mass Index (BMI) 39.4 Physical Exam Narrative Physical Examination: General: Awake, alert, oriented x 3 and cooperative, seated upright in the ED bed in no apparent distress. Skin: Normal color, normal turgor, no icterus, no cyanosis. HEENT: AT/NC, EOMI, PERRLA, MMM, no carotid bruits or JVD noted. Lungs: CTA bilaterally, moderate effort, mild decrease BL bases, no rales, ronchi or wheezing. Heart: Regular rate and rhythm; no gallop, rub audible. Abdomen: Soft, NTTP, ND, hyperactive BS, no HSM. Extremities: No cyanosis, clubbing, or edema. Neurological: Patient awake, alert, oriented as noted, cognitive function intact; pupils equally reactive to light and accommodation, cranial nerves II-XII grossly normal, moving all 4 extremities, no focal deficits, strength mildly globally decreased but likely secondary to primarily age and comorbidities. Psychiatric: Affect appears normal, no acute evidence of depressive or anxiety feelings. Results Lab / Micro Data Result Diagrams: 12/17/22 01:45 12/16/22 19:33 Labs: Laboratory Results - last 24 hr 12/16/22 19:33: WBC 12.8 H, RBC 4.50, Hgb 14.0, Hct 42.6, MCV 94.7, MCH 31.1, MCHC 32.9, RDW Std Deviation 42.6, RDW Coeff of Chandan 12.2, Plt Count 227, MPV 10.3, Immature Gran % (Auto) 0.300, Neut % (Auto) 70.5 H, Lymph % (Auto) 17.7 L, [place] % (Auto) 9.8, Eos % (Auto) 1.2, Baso % (Auto) 0.5, Absolute Neuts (auto) 9.0 H, Absolute Lymphs (auto) 2.27, Nucleated RBC % 0 12/16/22 19:33: Sodium 135 L, Potassium 3.7, Chloride 104, Carbon Dioxide 22.0, Anion Gap 9, BUN 26 H, Creatinine 1.18 H, Estim Creat Clear Calc 29.13, Est GFR (MDRD) Af Amer 57 L, Est GFR (MDRD) Non-Af 47 L, BUN/Creatinine Ratio 22.0 H, Glucose 117 H, Calcium 9.2 12/16/22 19:33: APTT 36.2 Micro: Microbiology 12/16/22 21:08 Stool Stool Occult Blood (BEKA) - Final Occult Blood Positive Assessment & Plan Assessment/Plan (1) GI bleed: PLAN: Plan The patient is a 77 y/o F w/ PMHx: GERD, Recent 09/2022 DVT LE diagnosis on Eliquis, HTN, HLD, CKD stage II, RLS, Rheumatoid arthritis, Obesity who presents to the [facility] ED on 12/16/22 with history of 2-day history of persistent loose stools of at least up to 6 if not more bouts a day with no associated abdominal cramping, nausea, emesis, fever or chills but she does report that the stool color has varied from dark red to dark brown with no associated lightheadedness or dizziness but given ongoing symptoms on anticoagulant therapy prompted ED evaluation. #1. Acute GI Bleed with associated bloody diarrhea complicated by chronic anticoagulation secondary to recent DVT history, potentially diverticular bleed: Admission hemoglobin 14, will admit to medical surgical floor given stable vital signs, maintain on IVFs, last oral anticoagulant a.m. on day of presentation, continue to temporarily hold, will obtain serial H&H's, will maintain on IV PPI with clear liquids until midnight then n.p.o. status and initiate bowel prep with continued gastroenterology consultation. Given history of diarrhea although no other abdominal or GI complaints will obtain enteric pathogen and C. difficile to be cautious. #2. Recent history DVT: Patient with 09/2022 lower extremity DVT, initiated on Eliquis at that time, last dose a.m. of day of presentation, given acute presentation #1 we will continue to temporarily hold. Resume once gastroenterology amenable. #3. Hypertension: Continue home regimen including telmisartan, hydrochlorothiazide with hold parameters as needed, PRN hydralazine. #4. Hyperlipidemia: We will continue patient home statin therapy. #5. Restless leg syndrome: We will continue patient home Requip regimen. #6. Rheumatoid arthritis: Patient previously had been on methotrexate but is no longer taking this, temporally hold celecoxib, continue gabapentin. #7. Chronic Kidney Disease Stage II: Admission BUN/Cr 26/1.18, baseline renal function primarily 0.7-0.9,, repeat BMP in AM. #8. GERD: We will continue patient home PPI. #9. DVT prophylaxis: SCDs, holding patient home Eliquis given acute presentation #1. #10. CODE status: Patient KARI is her daughter and living will is currently in place. Full Code status. Admission Evaluation Time spent evaluating chart, patient history, patient evaluation, care planning and discussion with specialists: 75 minutes. Charges/Coding Visit Charges Inpatient E&M: 18992 Init Hosp L3
[2022-12-16 23:55] VITALS: BP 127/61; PULSE 99; RESP 18; TEMP 36.5; O2SAT 97
[2022-12-16 23:59] VITALS: BMI 39.4
[2022-12-17 00:02] LABS: Magnesium 2.2 mg/dL (1.6-2.6); Phosphorus 3.2 mg/dL (2.5-4.9)
[2022-12-17] MEDS: 0.9% Normal Saline 1,000 ML 100 ML IV ×2 (00:51→15:09)
[2022-12-17] MEDS: Bisacodyl 5 MG Tablet 20 MG PO (00:51)
[2022-12-17 02:09] LABS: Hematocrit 39.4 % (37-47); Hemoglobin 13.2 g/dL (12.0-15.0)
[2022-12-17 04:26] VITALS: BP 133/74; PULSE 85; RESP 16; TEMP 36.4; O2SAT 95
--- NOTE | 2022-12-17 05:15 | NURSING ---
dr aguiar contacted about when to start clearlax. to be started now. Was [facility] for 1600. Pt had another black foul smelling diarrhea
[2022-12-17] MEDS: Polyethylene Glycol 3350 BOWEL PREP PO (05:17)
[2022-12-17 07:36] LABS: Absolute Lymphocyte Count 1.81 X10^3/uL (0.83-4.51); Absolute Neutrophil Count 4.8 X10^3/uL (2.0-7.7); Basophil# 0.06 X10^3/uL; Basophil% 0.8 % (0-1); Eosinophil# 0.06 X10^3/uL; Eosinophils% 0.8 % (0-5); Hemoglobin 13.8 g/dL (12.0-15.0); Lymphocyte # 1.81 X10^3/ul (0.83-4.51); Lymphocyte % 23.2 % (19-41); Mean Corp Hgb Conc 32.9 g/dL (32-36); Mean Corpuscular Hgb 31.7 pg (27.0-32.0); Mean Corpuscular Volume 96.3 fL (81-99); Mean Platelet Vol. 10.8 fl (6.2-12.0); Monocyte# 1.05 X10^3/uL; Monocyte% 13.5 % (0-10); NRBC Flagged by Analyzer 0 % (0-5); Neutrophil % 61.4 % (47-70); Platelet Count 226 K/mm3 (150-450); RBC Distribution Width CV 12.1 % (11.6-14.6); RBC Distribution Width SD 43.1 fl (35.1-43.9); Red Blood Count 4.36 M/mm3 (4.2-5.4); White Blood Count 7.8 K/mm3 (4.4-11.0)
[2022-12-17 07:43] LABS: ALB/GLOB Ratio 0.9 RATIO (0.9-2.4); AST(SGOT) 21 U/L (15-37); Alanine Aminotransfer ALT/SGPT 24 U/L (13-56); Albumin, Serum 3.5 g/dL (3.2-5.0); Alkaline Phosphatase 65 U/L (45-117); Anion Gap 14 (5-15); BUN 24 mg/dL (7-18); BUN/Creat Ratio 21.4 RATIO (10-20); Calcium,Total 8.9 mg/dL (8.5-10.1); Chloride 102 mmol/L (98-107); Creatinine, Serum 1.12 mg/dL (0.55-1.02); EST Glomerular Filtration Rate 50 mL/min (>60); Est Glom Filt Rate - Afr Amer 61 mL/min (>60); Estimated Creatinine Clearance 30.69 ml/min; Globulin 3.7 g/dL (2.2-4.2); Glucose 189 mg/dL (74-106); Potassium 2.8 mmol/L (3.5-5.1); Protein, Total 7.2 g/dL (6.4-8.2); Sodium Level 134 mmol/L (136-145)
[2022-12-17 08:06] VITALS: O2SAT 93
--- NOTE | 2022-12-17 09:25 | PCM.PN.HOSP ---
Reason for Visit Reason for Visit: Diagnoses Gastrointestinal hemorrhage, unspecified (12/16/22) Subjective Subjective Follow-up for GI bleed Patient was admitted with diarrhea, initially dark/black then brown and now cleared. Patient also had prep solution is started last night for colonoscopy. EGD also is scheduled. GI consulted. Hemoglobin about 13.8 g %. Vitals in normal range. Objective Data Objective Data Vital Signs: Vital Signs Temp Pulse Resp BP Pulse Ox O2 Del Method 97.6 F L 85 16 133/74 H 93 Room Air 12/17/22 04:26 12/17/22 04:26 12/17/22 04:26 12/17/22 04:26 12/17/22 08:06 12/17/22 08:06 Oxygen Delivery Method Room Air Weight: 202 lb Body Mass Index (BMI) 39.4 Intake & Output: Intake and Output for Last 24 Hours 12/15/22 12/16/22 12/17/22 23:59 23:59 23:59 Intake Total 1850 / 1850 Balance 1850 / 1850 Lab / Micro Data Result Diagrams: 12/17/22 06:54 12/17/22 06:54 Labs: Laboratory Results - last 24 hr 12/16/22 19:33: WBC 12.8 H, RBC 4.50, Hgb 14.0, Hct 42.6, MCV 94.7, MCH 31.1, MCHC 32.9, RDW Std Deviation 42.6, RDW Coeff of Chandan 12.2, Plt Count 227, MPV 10.3, Immature Gran % (Auto) 0.300, Neut % (Auto) 70.5 H, Lymph % (Auto) 17.7 L, [place] % (Auto) 9.8, Eos % (Auto) 1.2, Baso % (Auto) 0.5, Absolute Neuts (auto) 9.0 H, Absolute Lymphs (auto) 2.27, Nucleated RBC % 0 12/16/22 19:33: Sodium 135 L, Potassium 3.7, Chloride 104, Carbon Dioxide 22.0, Anion Gap 9, BUN 26 H, Creatinine 1.18 H, Estim Creat Clear Calc 29.13, Est GFR (MDRD) Af Amer 57 L, Est GFR (MDRD) Non-Af 47 L, BUN/Creatinine Ratio 22.0 H, Glucose 117 H, Calcium 9.2 12/16/22 19:33: APTT 36.2 12/16/22 19:33: Phosphorus 3.2, Magnesium 2.2 12/17/22 01:45: Hgb 13.2, Hct 39.4 12/17/22 06:54: WBC 7.8, RBC 4.36, Hgb 13.8, Hct 42.0, MCV 96.3, MCH 31.7, MCHC 32.9, RDW Std Deviation 43.1, RDW Coeff of Chandan 12.1, Plt Count 226, MPV 10.8, Immature Gran % (Auto) 0.300, Neut % (Auto) 61.4, Lymph % (Auto) 23.2, [place] % (Auto) 13.5 H, Eos % (Auto) 0.8, Baso % (Auto) 0.8, Absolute Neuts (auto) 4.8, Absolute Lymphs (auto) 1.81, Nucleated RBC % 0 12/17/22 06:54: Sodium 134 L, Potassium 2.8 L, Chloride 102, Carbon Dioxide 18.0 L, Anion Gap 14, BUN 24 H, Creatinine 1.12 H, Estim Creat Clear Calc 30.69, Est GFR (MDRD) Af Amer 61, Est GFR (MDRD) Non-Af 50 L, BUN/Creatinine Ratio 21.4 H, Glucose 189 H, Calcium 8.9, Total Bilirubin 0.30, AST 21, ALT 24, Alkaline Phosphatase 65, Total Protein 7.2, Albumin 3.5, Globulin 3.7, Albumin/Globulin Ratio 0.9 Micro: Microbiology 12/17/22 02:10 Stool C. difficile DNA Amplification - Final 12/17/22 02:10 Stool Enteric Bacteriology - Final 12/16/22 21:08 Stool Stool Occult Blood (BEKA) - Final Occult Blood Positive Physical Exam Narrative Physical exam General: Alert, Oriented x3, Cooperative HEENT: Atraumatic, PERRLA, EOMI, Normocephalic Oral: Oral mucosa moist. No hematemesis. No Gingival or Mucosal Lesions/ Ulcerations Neck: Supple, No JVD, Negative Carotid Bruits Lungs: Air entry diminished in bilateral lung bases. No crepitation/rhonchi Cardiovascular: Regular rate, Regular Rhythm, Normal S1, Normal S2, No murmurs Abdomen: Bowel Sounds Present, Soft, Non Tender, Non-Distended. : No renal angle tenderness. No suprapubic tenderness. Extremities: Mild chronic left lower extremity swelling from DVT. Capillary Refill Less than 3 Seconds Skin: No rashes, No breakdown Musculoskeletal: No Tenderness to Palpation of Joints or Extremities. ROM intact. Bilateral knee and hip joints arthritis Neurological: Cranial nerves II-XII grossly intact, DTR 2+/4 and Symmetrical, Neuro grossly intact Psych/Mental Status: Normal Affect, Appropriate. Assessment & Plan Assessment/Plan (1) GI bleed: PLAN: Plan The patient is a 77 y/o F left lower extremity DVT on Eliquis admitted with 2-day history of persistent diarrhea about 6 BMs per day with no abdominal cramps nausea vomiting fever or chills. Stool color dark red to dark brown. No dizziness. #1. Acute GI Bleed with associated bloody diarrhea complicated by chronic anticoagulation secondary to recent DVT history in September 2022, potentially diverticular bleed: Patient is being admitted in PCU. Vitals are in normal range. Hemoglobin also between 13 to 14 g. No abdominal pain. GI is consulted. Plan for EGD and colonoscopy today. Stool for C. difficile and enteric bacteriology panel negative. Patient had colonoscopy about 10 years ago and was no major red flag as per the patient. #2. Recent history DVT: Patient with 09/2022, left lower extremity DVT, last dose in the morning of 12/16/2022. #3. Hypertension: Continue home regimen including telmisartan, hydrochlorothiazide with hold parameters as needed, PRN hydralazine. #4. Hyperlipidemia: We will continue patient home statin therapy. #5. Restless leg syndrome: We will continue patient home Requip regimen. #6. Rheumatoid arthritis: Patient previously had been on methotrexate but is no longer taking this, temporally hold celecoxib, continue gabapentin. #7. Chronic Kidney Disease Stage II: Admission BUN/Cr 26/1.18, baseline renal function primarily 0.7-0.9. Patient BUNs/creatinine on baseline. Mild to moderate hyponatremia probably hypotonic hypovolemic, hypokalemia and normal anion gap metabolic acidosis. Patient getting IV fluid normal saline and potassium IV infusion. Monitor electrolytes and kidney function. #8. GERD: continue patient home PPI. #9. DVT prophylaxis: SCDs, holding patient home Eliquis given acute presentation #1. #10. CODE status: Patient KARI is her daughter and living will is currently in place. Full Code status. Plan of management discussed with patient's daughter near the bedside. Microbiology Past 72 Hours 12/17/22 02:10 Stool C. difficile DNA Amplification - Final 12/17/22 02:10 Stool Enteric Bacteriology - Final 12/16/22 21:08 Stool Stool Occult Blood (BEKA) - Final Occult Blood Positive Laboratory Results 12/16/22 19:33: WBC 12.8 H, RBC 4.50, Hgb 14.0, Hct 42.6, MCV 94.7, MCH 31.1, MCHC 32.9, RDW Std Deviation 42.6, RDW Coeff of Chandan 12.2, Plt Count 227, MPV 10.3, Immature Gran % (Auto) 0.300, Neut % (Auto) 70.5 H, Lymph % (Auto) 17.7 L, [place] % (Auto) 9.8, Eos % (Auto) 1.2, Baso % (Auto) 0.5, Absolute Neuts (auto) 9.0 H, Absolute Lymphs (auto) 2.27, Nucleated RBC % 0 12/16/22 19:33: Sodium 135 L, Potassium 3.7, Chloride 104, Carbon Dioxide 22.0, Anion Gap 9, BUN 26 H, Creatinine 1.18 H, Estim Creat Clear Calc 29.13, Est GFR (MDRD) Af Amer 57 L, Est GFR (MDRD) Non-Af 47 L, BUN/Creatinine Ratio 22.0 H, Glucose 117 H, Calcium 9.2 12/16/22 19:33: APTT 36.2 12/16/22 19:33: Phosphorus 3.2, Magnesium 2.2 12/17/22 01:45: Hgb 13.2, Hct 39.4 12/17/22 06:54: WBC 7.8, RBC 4.36, Hgb 13.8, Hct 42.0, MCV 96.3, MCH 31.7, MCHC 32.9, RDW Std Deviation 43.1, RDW Coeff of Chandan 12.1, Plt Count 226, MPV 10.8, Immature Gran % (Auto) 0.300, Neut % (Auto) 61.4, Lymph % (Auto) 23.2, [place] % (Auto) 13.5 H, Eos % (Auto) 0.8, Baso % (Auto) 0.8, Absolute Neuts (auto) 4.8, Absolute Lymphs (auto) 1.81, Nucleated RBC % 0 12/17/22 06:54: Sodium 134 L, Potassium 2.8 L, Chloride 102, Carbon Dioxide 18.0 L, Anion Gap 14, BUN 24 H, Creatinine 1.12 H, Estim Creat Clear Calc 30.69, Est GFR (MDRD) Af Amer 61, Est GFR (MDRD) Non-Af 50 L, BUN/Creatinine Ratio 21.4 H, Glucose 189 H, Calcium 8.9, Total Bilirubin 0.30, AST 21, ALT 24, Alkaline Phosphatase 65, Total Protein 7.2, Albumin 3.5, Globulin 3.7, Albumin/Globulin Ratio 0.9 Charges/Coding Visit Charges Inpatient E&M: 40835 Subs Hosp L2
[2022-12-17 10:26] VITALS: BP 126/75; PULSE 80; RESP 18; TEMP 37; O2SAT 95
[2022-12-17] MEDS: Gabapentin 100 MG Capsule PO ×2 (10:56→21:07)
[2022-12-17] MEDS: Losartan Potassium 100 MG Tablet PO (10:57)
[2022-12-17] MEDS: hydroCHLOROthiazide 25 MG Tablet PO (10:57)
--- NOTE | 2022-12-17 13:21 | EX.PCM.CON.G ---
HPI Consult Data Date of Consult: 12/16/22 HPI Narrative Reason for Consultation: GI bleed HPI Narrative: IVANA HERNANDEZ, is a 77 y/o F with past medical history of GERD, Recent 09/2022 DVT LE diagnosis on Eliquis, HTN, HLD, CKD stage II, RLS, Rheumatoid arthritis, Obesity. She presents to the [facility] ED on 12/16/22 with history of 2-day history of persistent loose stools. There is no associated abdominal cramping, nausea, emesis, fever or chills. She does report that the stool color has varied from dark red to dark brown with no associated lightheadedness or dizziness. Due to her ongoing symptoms on anticoagulant therapy prompted ED evaluation.? Patient denies ever having a similar presentation like this in the past.? Patient does report that her last oral anticoagulant was on a.m. of day of presentation but she did not take the evening dose.? She does report decreased oral intake but not because of a lack of appetite, primarily because she wanted to avoid having diarrhea.? Work up in the ED included T97.9, heart rate 78, BP 118/67, respiratory rate 18, 98% on room air, CBC with WBC 12.8, hemoglobin 14, platelets 227 with left shift, BMP with sodium 135, BUN/creatinine 26/1.18, glucose 117, positive stool guaiac assessment.? Given patient history and advanced age on anticoagulant therapy with recommended admission with a bowel prep and planned endoscopy in AM. [facility] Medical History Chronic neuropathic pain DVT (deep venous thrombosis) HLD (hyperlipidemia) Hypertension Rheumatoid arthritis RLS (restless legs syndrome) Home Medications apixaban 5 mg tablet (Eliquis) 5 mg PO BID DVT 12/17/22 [History Last Taken 12/16/22] celecoxib 200 mg capsule 200 mg PO DAILY pain 12/17/22 [History Last Taken 12/16/22] gabapentin 100 mg capsule 100 mg PO BID neuropathy 12/17/22 [History Last Taken 12/16/22] ropinirole 1 mg tablet 1 mg PO QHS restless legs 12/17/22 [History Last Taken 12/15/22] rosuvastatin 10 mg tablet 10 mg PO QHS cholesterol 12/17/22 [History Last Taken 05/02/23] telmisartan 80 mg-hydrochlorothiazide 25 mg tablet 1 tab PO DAILY HTN 12/17/22 [History Last Taken 12/16/22] Allergy/AdvReac Type Severity Reaction Status Date / Time No Known Allergies Allergy Verified 12/16/22 19:27 Family History (Updated 12/17/22 @ 02:[address] Promise Vaughn MD) Mother Pancreatic cancer Father Heart disease Hypertension Surgical History (Updated 12/17/22 @ 02:[address] Promise Vaughn MD) H/O: hysterectomy History of ankle surgery History of tonsillectomy and adenoidectomy Social History (Updated 12/17/22 @ 02:[address] Promise Vaughn MD) household members: none Smoking Status: Never smoker alcohol intake: never substance use type: does not use ROS ROS Narrative Admission Review of Systems: CONSTITUTIONAL: No weight loss, fever, chills, weakness or fatigue. HEENT: Eyes: No visual loss, blurred vision, double vision or yellow sclerae. Ears, Nose, Throat: No hearing loss, sneezing, congestion, runny nose or sore throat. SKIN: No rash or itching, lesions, wounds. CARDIOVASCULAR: No chest pain, chest pressure or chest discomfort, palpitations, edema, orthopnea, syncopal events. RESPIRATORY: No shortness of breath, cough or sputum, wheezing, hemoptysis. GASTROINTESTINAL: + Persistent diarrhea with stools ranging from dark brown to dark red, admitted anorexia primarily to avoid diarrhea. No nausea, vomiting, abdominal pain, melena, BRBPR. GENITOURINARY: No dysuria, frequency, urgency or retention. NEUROLOGICAL: + RLS, chronic neuropathy. No headache, dizziness, syncope, paralysis, ataxia, numbness or tingling in the extremities, focal weakness, change in bowel or bladder control, seizure. MUSCULOSKELETAL: + muscle, back pain, joint pain or stiffness. HEMATOLOGIC: + anemia, bleeding or bruising. LYMPHATICS: No enlarged nodes. No history of splenectomy. PSYCHIATRIC: No history of depression or anxiety. ENDOCRINOLOGIC: No reports of sweating, cold or heat intolerance. No polyuria or polydipsia. ALLERGIES: No history of asthma, hives, eczema or rhinitis. Physical Exam Narrative Physical Examination: General: Awake, alert, oriented x 3 and cooperative, seated upright in the ED bed in no apparent distress. Skin: Normal color, normal turgor, no icterus, no cyanosis. HEENT: AT/NC, EOMI, PERRLA, MMM, no carotid bruits or JVD noted. Lungs: CTA bilaterally, moderate effort, mild decrease BL bases, no rales, ronchi or wheezing. Heart: Regular rate and rhythm; no gallop, rub audible. Abdomen: Soft, NTTP, ND, hyperactive BS, no HSM. Extremities: No cyanosis, clubbing, or edema. Neurological: Patient awake, alert, oriented as noted, cognitive function intact; pupils equally reactive to light and accommodation, cranial nerves II-XII grossly normal, moving all 4 extremities, no focal deficits, strength mildly globally decreased but likely secondary to primarily age and comorbidities. Psychiatric: Affect appears normal, no acute evidence of depressive or anxiety feelings. Lab / Micro Data Result Diagrams: 12/17/22 06:54 12/17/22 06:54 Labs: Laboratory Results - last 24 hr 12/16/22 19:33: WBC 12.8 H, RBC 4.50, Hgb 14.0, Hct 42.6, MCV 94.7, MCH 31.1, MCHC 32.9, RDW Std Deviation 42.6, RDW Coeff of Chandan 12.2, Plt Count 227, MPV 10.3, Immature Gran % (Auto) 0.300, Neut % (Auto) 70.5 H, Lymph % (Auto) 17.7 L, [place] % (Auto) 9.8, Eos % (Auto) 1.2, Baso % (Auto) 0.5, Absolute Neuts (auto) 9.0 H, Absolute Lymphs (auto) 2.27, Nucleated RBC % 0 12/16/22 19:33: Sodium 135 L, Potassium 3.7, Chloride 104, Carbon Dioxide 22.0, Anion Gap 9, BUN 26 H, Creatinine 1.18 H, Estim Creat Clear Calc 29.13, Est GFR (MDRD) Af Amer 57 L, Est GFR (MDRD) Non-Af 47 L, BUN/Creatinine Ratio 22.0 H, Glucose 117 H, Calcium 9.2 12/16/22 19:33: APTT 36.2 12/16/22 19:33: Phosphorus 3.2, Magnesium 2.2 12/17/22 01:45: Hgb 13.2, Hct 39.4 12/17/22 06:54: WBC 7.8, RBC 4.36, Hgb 13.8, Hct 42.0, MCV 96.3, MCH 31.7, MCHC 32.9, RDW Std Deviation 43.1, RDW Coeff of Chandan 12.1, Plt Count 226, MPV 10.8, Immature Gran % (Auto) 0.300, Neut % (Auto) 61.4, Lymph % (Auto) 23.2, [place] % (Auto) 13.5 H, Eos % (Auto) 0.8, Baso % (Auto) 0.8, Absolute Neuts (auto) 4.8, Absolute Lymphs (auto) 1.81, Nucleated RBC % 0 12/17/22 06:54: Sodium 134 L, Potassium 2.8 L, Chloride 102, Carbon Dioxide 18.0 L, Anion Gap 14, BUN 24 H, Creatinine 1.12 H, Estim Creat Clear Calc 30.69, Est GFR (MDRD) Af Amer 61, Est GFR (MDRD) Non-Af 50 L, BUN/Creatinine Ratio 21.4 H, Glucose 189 H, Calcium 8.9, Total Bilirubin 0.30, AST 21, ALT 24, Alkaline Phosphatase 65, Total Protein 7.2, Albumin 3.5, Globulin 3.7, Albumin/Globulin Ratio 0.9 Micro: Microbiology 12/17/22 02:10 Stool C. difficile DNA Amplification - Final 12/17/22 02:10 Stool Enteric Bacteriology - Final 12/16/22 21:08 Stool Stool Occult Blood (BEKA) - Final Occult Blood Positive Assessment & Plan Assessment/Plan (1) GI bleed: PLAN: Plan The patient is a 77 y/o F w/ PMHx: GERD, Recent 09/2022 DVT LE diagnosis on Eliquis, HTN, HLD, CKD stage II, RLS, Rheumatoid arthritis, Obesity who presents to the [facility] ED on 12/16/22 with history of 2-day history of persistent loose stools and lower GI bleeding. Acute GI Bleed with associated bloody diarrhea complicated by chronic anticoagulation secondary to recent DVT history, potentially diverticular bleed, ischemic colitis, ulcerative colitis, less likely Crohn's disease, microscopic colitis, collagenous colitis. Her admission hemoglobin 14, will admit to medical surgical floor given stable vital signs, maintain on IVFs, last oral anticoagulant a.m. on day of presentation, continue to temporarily hold, will obtain serial H&H's, will maintain on IV PPI with clear liquids until midnight then n.p.o. status and initiate bowel prep with continued gastroenterology consultation. Given history of diarrhea although no other abdominal or GI complaintsI agree with obtaining enteric pathogen and C. difficile to be cautious. Recent history DVT: Patient with 09/2022 lower extremity DVT, initiated on Eliquis at that time, last dose a.m. of day of presentation, given acute presentation #1 we will continue to temporarily hold. Resume once gastroenterology amenable. Charges/Coding Visit Charges Inpatient E&M: 03418 Init Hosp L3
--- NOTE | 2022-12-17 14:42 | SUR.PREOP ---
PTS POTASSIUM IS LOW PER DR. OGLESBY POTASSIUM NEEDS TO BE REPLACED. PER DR. OGLESBY VERBAL ORDER 40MEQ OF POTASSIUM ORDERED, DR. FARNSWORTH MADE AWARE AND WANTS TO RESCHEDULE THE CASE FOR 12/18/22. [facility]IA MADE AWARE OF PLAN, PHARMACY CALLED TO SEND UP HER POTASSIUM TO [facility].
[2022-12-17] MEDS: Potassium Chloride 10mEq/100mL 10 MEQ/100 ML IV.SOLN. 100 MEQ IV BOLUS ×4 (15:09→18:26)
[2022-12-17 15:17] VITALS: BP 107/51; PULSE 78; RESP 18; TEMP 36.9; O2SAT 94
--- NOTE | 2022-12-17 16:16 | CASEMGMT ---
RN IVETT NOTE: Intro role of CM to patient and [facility] form explained re: Observation status for treatment of gastrointestinal bleed.? Explained hospitalization will be paid per?her insurance policy for Outpatient billing?and condition will continue to be evaluated for Inpt necessity. Also let pt know that [facility] sends paper in the billing packet with their phone number if questions arise. Discussed Pharmacy section of [facility] form and self administered medication guideline.? Pt verbalizes understanding and does not have further questions. ?Form signed, copy made and placed in chart, and original given to pt. Pt states she lives alone, is independent, and denies having any discharge planning needs/concerns. Emmy BENJAMIN RN CM
[2022-12-17 20:41] VITALS: BP 104/52; PULSE 76; RESP 16; TEMP 36.7; O2SAT 98
[2022-12-17] MEDS: Atorvastatin Calcium 20 MG Tablet PO (21:02)
[2022-12-17] MEDS: Pramipexole Di-HCl 0.5 MG Tablet PO (21:02)
[2022-12-18] VITALS (11 sets, daily range): BP systolic 99–112; BP diastolic 49–69; PULSE 66–98; RESP 16–18; TEMP 36.1–36.8; O2SAT 93–106; BMI 40.2
[2022-12-18] MEDS: 0.9% Normal Saline 1,000 ML 100 ML IV ×2 (02:00→08:01)
[2022-12-18 06:16] LABS: Absolute Lymphocyte Count 1.34 X10^3/uL (0.83-4.51); Absolute Neutrophil Count 4.8 X10^3/uL (2.0-7.7); Basophil# 0.04 X10^3/uL; Basophil% 0.5 % (0-1); Eosinophil# 0.19 X10^3/uL; Eosinophils% 2.5 % (0-5); Hematocrit 37.5 % (37-47); Hemoglobin 12.4 g/dL (12.0-15.0); Lymphocyte # 1.34 X10^3/ul (0.83-4.51); Lymphocyte % 17.9 % (19-41); Mean Corp Hgb Conc 33.1 g/dL (32-36); Mean Corpuscular Hgb 31.6 pg (27.0-32.0); Mean Corpuscular Volume 95.4 fL (81-99); Mean Platelet Vol. 10.1 fl (6.2-12.0); Monocyte% 14.7 % (0-10); NRBC Flagged by Analyzer 0 % (0-5); Platelet Count 182 K/mm3 (150-450); RBC Distribution Width CV 11.9 % (11.6-14.6); RBC Distribution Width SD 41.8 fl (35.1-43.9); Red Blood Count 3.93 M/mm3 (4.2-5.4); White Blood Count 7.5 K/mm3 (4.4-11.0)
[2022-12-18 06:30] LABS: Anion Gap 8 (5-15); BUN 32 mg/dL (7-18); BUN/Creat Ratio 15.5 RATIO (10-20); Calcium,Total 8.4 mg/dL (8.5-10.1); Chloride 105 mmol/L (98-107); Creatinine, Serum 2.06 mg/dL (0.55-1.02); EST Glomerular Filtration Rate 25 mL/min (>60); Est Glom Filt Rate - Afr Amer 30 mL/min (>60); Estimated Creatinine Clearance 34.11 ml/min; Glucose 111 mg/dL (74-106); Magnesium 1.4 mg/dL (1.6-2.6); Potassium 3.4 mmol/L (3.5-5.1); Sodium Level 137 mmol/L (136-145)
--- NOTE | 2022-12-18 06:30 | COLBX_PTH ---
PATIENT: IVANA HERNANDEZ LOC: [facility] U#:[id number] AGE/SX: 77/F ROOM: [facility] RE12/18/[address]: Dr. Jeannie Gipson DO : 1945 BED: 1 DIS: 12/21/2022 SPEC #: [id number] RECD: 12/18/22 11:07 STATUS: HERMILO RETomeka #: [id number] FREDRICK: 12/18/22 06:[address]: Roberto Rausch DEPT: SURGICAL PATHOLOGY RECD BY: Kathe Sweeney ENTERED: 12/18/22 15:22 SP TYPE: COLON BX OTHR DR: MD Adenike Valencia DO Dr. Prakash Chand, MD Tissues: A - Ileum, NOS B - COLON BIOPSY C - Rectum, NOS Procedures: Trichrome (control) Special Stain Group II Surgery Specimen Level IV HEADER OPERATION: Colonoscopy (MAC) and biopsy PRE-OP DIAGNOSIS: Lower GI bleed TISSUE SUBMITTED: A ? Terminal ileum, B ? Random colonic biopsies, C ? Rectal biopsy MICROSCOPIC DIAGNOSIS A. Terminal ileum, biopsy: No pathologic change. B. Colon, random biopsy: Focal changes of ischemic colitis with superimposed focal acute colitis. See comment. C. Rectum, biopsy: Consistent with ischemic colitis. AM:mackenzie 12/21/2022 COMMENT B. Trichrome stain with matched control was used in the evaluation of this case. MICROSCOPIC DESCRIPTION Slides are reviewed. GROSS DESCRIPTION A Received in fixative is one container labeled with the patient's name and designated terminal ileum. The specimen consists of multiple irregular fragments of light zarco soft tissue that in aggregate measure 1.0 x 0.6 x 0.1 cm. The specimen is totally submitted in one cassette. B - Received in fixative is one container labeled with the patient's name and designated random colon biopsy. The specimen consists of multiple irregular fragments of light zarco soft tissue that in aggregate measure 1.5 x 0.5 x 0.1 cm. The specimen is totally submitted in one cassette. C - Received in fixative is one container labeled with the patient's name and designated rectal biopsy. The specimen consists of two irregular fragments of light zarco soft tissue that in aggregate measure 0.6 x 0.3 x 0.1 cm. The specimen is totally submitted in one cassette. / CARLOS:mackenzie 12/18/2022 TC:2 CPT: 36613 x3, 15440
[2022-12-18 06:37] LABS: Phosphorus 4.6 mg/dL (2.5-4.9)
--- NOTE | 2022-12-18 07:15 | OP.COLON_ITS ---
Patient Name: Mariama De León Procedure Date: 12/18/2022 6:30 AM Date of : 1945 Age: 77 Procedure: Colonoscopy Indications: Clinically significant diarrhea of unexplained origin, Hematochezia Providers: Roberto Rausch DO Medicines: Monitored Anesthesia Care Patient Profile: This is a 77 year old female. Refer to note in patient chart for documentation of history and physical. Last Colonoscopy: date unknown. Unable to locate last colonoscopy report. Complications: No immediate complications. Procedure: Pre-Anesthesia Assessment: - Prior to the procedure, a History and Physical was performed, and patient medications and allergies were reviewed. The patient is competent. The risks and benefits of the procedure and the sedation options and risks were discussed with the patient. All questions were answered and informed consent was obtained. Patient identification and proposed procedure were verified by the physician in the pre-procedure area. Mental Status Examination: alert and oriented. Airway Examination: normal oropharyngeal airway and neck mobility. Respiratory Examination: clear to auscultation. CV Examination: normal. Prophylactic Antibiotics: The patient does not require prophylactic antibiotics. Prior Anticoagulants: The patient has taken no previous anticoagulant or antiplatelet agents. ASA Grade Assessment: II - A patient with mild systemic disease. After reviewing the risks and benefits, the patient was deemed in satisfactory condition to undergo the procedure. The anesthesia plan was to use monitored anesthesia care (MAC). Immediately prior to administration of medications, the patient was re-assessed for adequacy to receive sedatives. The heart rate, respiratory rate, oxygen saturations, blood pressure, adequacy of pulmonary ventilation, and response to care were monitored throughout the procedure. The physical status of the patient was re-assessed after the procedure. After I obtained informed consent, the scope was passed under direct vision. Throughout the procedure, the patient's blood pressure, pulse, and oxygen saturations were monitored continuously. The Colonoscope was introduced through the anus and advanced to the terminal ileum. The colonoscopy was performed without difficulty. The patient tolerated the procedure well. The quality of the bowel preparation was fair. Scope In: 6:47:30 AM Scope Withdrawal Time 0 hours 10 minutes 8 seconds Scope Out: 7:03:34 AM Total Procedure Duration Time 0 hours 16 minutes 4 seconds Findings: The perianal and digital rectal examinations were normal. Inflammation characterized by congestion (edema), erosions, erythema, friability and granularity was found in a continuous and circumferential pattern from the rectum to the terminal ileum. The entire colon was spared. This was severe, and when compared to previous examinations, the findings are new. Biopsies were taken with a cold forceps for histology. Verification of patient identification for the specimen was done. Biopsies for histology were taken with a cold forceps from the entire colon for evaluation of microscopic colitis. Verification of patient identification for the specimen was done. Estimated blood loss was minimal. Diffuse inflammation, moderate in severity and characterized by congestion (edema), erosions, erythema and aphthous ulcerations was found in the terminal ileum. Biopsies were taken with a cold forceps for histology. Verification of patient identification for the specimen was done. Estimated blood loss was minimal. A few small and large-mouthed diverticula were found in the recto-sigmoid colon, sigmoid colon and descending colon. Stool was found in the recto-sigmoid colon, in the sigmoid colon, in the descending colon, in the ascending colon and in the cecum. Impression: - Preparation of the colon was fair. - Colitis. Inflammation was found from the rectum to the terminal ileum. This was severe, new compared to previous examinations. Biopsied. - Ileitis. Biopsied. - Diverticulosis in the recto-sigmoid colon, in the sigmoid colon and in the descending colon. - Stool in the recto-sigmoid colon, in the sigmoid colon, in the descending colon, in the ascending colon and in the cecum. Recommendation: - Solu-Medrol 40 mg every 8 hours - Resume previous diet. - Continue present medications. - Await pathology results. - Repeat colonoscopy is recommended to check healing. The colonoscopy date will be determined after pathology results from today's exam become available for review. Procedure Code(s): --- Professional --- 76811, Colonoscopy, flexible; with biopsy, single or multiple CPT copyright 2017 [employer]. All rights reserved. The codes documented in this report are preliminary and upon web content writer review may be revised to meet current compliance requirements. Roberto Rausch DO 12/18/2022 7:14:48 AM This report has been signed electronically. Number of Addenda: 0 Note Initiated On: 12/18/2022 6:30 AM
--- NOTE | 2022-12-18 07:15 | OP.CCLET_ITS ---
12/18/2022 Adenike Mcghee Do Re : Colonoscopy procedure for Mariama De León Dear Taz This procedure was performed on Sunday, December 18, 2022. My impressions and recommendations are as follows: Impressions : - Preparation of the colon was fair. - Colitis. Inflammation was found from the rectum to the terminal ileum. This was severe, new compared to previous examinations. Biopsied. - Ileitis. Biopsied. - Diverticulosis in the recto-sigmoid colon, in the sigmoid colon and in the descending colon. - Stool in the recto-sigmoid colon, in the sigmoid colon, in the descending colon, in the ascending colon and in the cecum. Recommendations : - Solu-Medrol 40 mg every 8 hours - Resume previous diet. - Continue present medications. - Await pathology results. - Repeat colonoscopy is recommended to check healing. The colonoscopy date will be determined after pathology results from today's exam become available for review. My findings are described in the full procedure note, which is enclosed. If I can be of further assistance, please feel free to contact me at . Sincerely, Roberto Rausch DO 12/18/2022 7:14:48 AM This report has been signed electronically.
--- NOTE | 2022-12-18 09:57 | PCM.PN.HOSP ---
Reason for Visit Reason for Visit: Diagnoses Gastrointestinal hemorrhage, unspecified (12/16/22) Subjective Subjective Follow-up for lower GI bleed possible ulcerative colitis and KEVIN. Patient does not have abdominal pain. Diarrhea has slowed down. Creatinine went up. Objective Data Objective Data Vital Signs: Vital Signs Temp Pulse Resp BP Pulse Ox O2 Del Method 97.6 F L 72 18 112/60 95 Room Air 12/18/22 08:05 12/18/22 08:05 12/18/22 08:05 12/18/22 08:05 12/18/22 08:23 12/18/22 08:23 Oxygen Delivery Method Room Air Weight: 205 lb 0.478 oz Body Mass Index (BMI) 40.2 Intake & Output: Intake and Output for Last 24 Hours 12/16/22 12/17/22 12/18/22 23:59 23:59 23:59 Intake Total 3468.33 / 3468.33 1601.67 / 1601.67 Balance 3468.33 / 3468.33 1601.67 / 1601.67 Lab / Micro Data Result Diagrams: 12/18/22 06:10 12/18/22 06:10 Labs: Laboratory Results - last 24 hr 12/18/22 06:10: WBC 7.5, RBC 3.93 L, Hgb 12.4, Hct 37.5, MCV 95.4, MCH 31.6, MCHC 33.1, RDW Std Deviation 41.8, RDW Coeff of Chandan 11.9, Plt Count 182, MPV 10.1, Immature Gran % (Auto) 0.400, Neut % (Auto) 64.0, Lymph % (Auto) 17.9 L, [place] % (Auto) 14.7 H, Eos % (Auto) 2.5, Baso % (Auto) 0.5, Absolute Neuts (auto) 4.8, Absolute Lymphs (auto) 1.34, Nucleated RBC % 0 12/18/22 06:10: Sodium 137, Potassium 3.4 L, Chloride 105, Carbon Dioxide 24.0, Anion Gap 8, BUN 32 H, Creatinine 2.06 H, Estim Creat Clear Calc 34.11, Est GFR (MDRD) Af Amer 30 L, Est GFR (MDRD) Non-Af 25 L, BUN/Creatinine Ratio 15.5, Glucose 111 H, Calcium 8.4 L, Magnesium 1.4 L 12/18/22 06:10: Phosphorus 4.6 Micro: Microbiology 12/17/22 02:10 Stool C. difficile DNA Amplification - Final 12/17/22 02:10 Stool Enteric Bacteriology - Final 12/16/22 21:08 Stool Stool Occult Blood (BEKA) - Final Occult Blood Positive Physical Exam Narrative Patient does not have abdominal pain. Colonoscopy finding discussed with the patient and patient's daughter near the bedside. Physical exam General: Alert, Oriented x3, Cooperative HEENT: Atraumatic, PERRLA, EOMI, Normocephalic Oral: Oral mucosa moist. No hematemesis. No Gingival or Mucosal Lesions/ Ulcerations Neck: Supple, No JVD, Negative Carotid Bruits Lungs: Air entry diminished in bilateral lung bases. No crepitation/rhonchi Cardiovascular: Regular rate, Regular Rhythm, Normal S1, Normal S2, No murmurs Abdomen: Bowel Sounds Present, Soft, Non Tender, Non-Distended. No palpable mass. : No oliguria/anuria. No renal angle tenderness. No suprapubic tenderness. Extremities: Mild chronic left lower extremity swelling from DVT. Capillary Refill Less than 3 Seconds Skin: No rashes, No breakdown Musculoskeletal: No Tenderness to Palpation of Joints or Extremities. ROM intact. Bilateral knee and hip joints arthritis Neurological: Cranial nerves II-XII grossly intact, DTR 2+/4 and Symmetrical, Neuro grossly intact Psych/Mental Status: Normal Affect, Appropriate. Assessment & Plan Assessment/Plan (1) GI bleed: PLAN: Plan The patient is a 77 y/o F left lower extremity DVT on Eliquis admitted with 2-day history of persistent diarrhea about 6 BMs per day with no abdominal cramps nausea vomiting fever or chills. Stool color dark red to dark brown. No dizziness. #1. Acute GI Bleed with associated bloody diarrhea complicated by chronic anticoagulation secondary to recent DVT history in September 2022, potentially diverticular bleed: Patient is being admitted in PCU. Vitals are in normal range. Hemoglobin also between 13 to 14 g. No abdominal pain. GI is consulted. Plan for colonoscopy today. Stool for C. difficile and enteric bacteriology panel negative. Patient had colonoscopy about 10 years ago and was no major red flag as per the patient. 12/18: Colonoscopy finding discussed with the patient and her daughter. Shows diffuse inflammation from rectum to terminal ileum. Terminal ileum biopsy was done. Patient on IV Solu-Medrol. Discussed with the picture painter. #2. Recent history DVT: Patient with 09/2022, left lower extremity DVT, last dose in the morning of 12/16/2022. #3. Hypertension: Continue home regimen including telmisartan, hydrochlorothiazide with hold parameters as needed, PRN hydralazine. #4. Hyperlipidemia: We will continue patient home statin therapy. #5. Restless leg syndrome: We will continue patient home Requip regimen. #6. Rheumatoid arthritis: Patient previously had been on methotrexate but is no longer taking this, temporally hold celecoxib, continue gabapentin. #7. Acute kidney injury on chronic Kidney Disease Stage II: Admission BUN/Cr 26/1.18, baseline renal function primarily 0.7-0.9. Patient BUNs/creatinine on baseline. Mild to moderate hyponatremia probably hypotonic hypovolemic, hypokalemia and normal anion gap metabolic acidosis. Patient getting IV fluid normal saline and potassium IV infusion. Monitor electrolytes and kidney function. 12/18: Acute kidney injury probably due to colon prep solution. Creatinine went up from 1.12-2.06. K3.4. Magnesium 1.4. Normal anion gap. Bicarb 24. Potassium and magnesium replaced. IV fluid Ringer lactate 100 mill per hour. Discharge was held because of acute kidney injury. Follow-up kidney function and electrolytes tomorrow AM #8. GERD: continue patient home PPI. #9. DVT prophylaxis: SCDs, holding patient home Eliquis given acute presentation #1. #10. CODE status: Patient KARI is her daughter and living will is currently in place. Full Code status. Plan of management discussed with patient's daughter near the bedside. Microbiology Past 72 Hours 12/17/22 02:10 Stool C. difficile DNA Amplification - Final 12/17/22 02:10 Stool Enteric Bacteriology - Final 12/16/22 21:08 Stool Stool Occult Blood (BEKA) - Final Occult Blood Positive Laboratory Results 12/18/22 06:10: WBC 7.5, RBC 3.93 L, Hgb 12.4, Hct 37.5, MCV 95.4, MCH 31.6, MCHC 33.1, RDW Std Deviation 41.8, RDW Coeff of Chandan 11.9, Plt Count 182, MPV 10.1, Immature Gran % (Auto) 0.400, Neut % (Auto) 64.0, Lymph % (Auto) 17.9 L, [place] % (Auto) 14.7 H, Eos % (Auto) 2.5, Baso % (Auto) 0.5, Absolute Neuts (auto) 4.8, Absolute Lymphs (auto) 1.34, Nucleated RBC % 0 12/18/22 06:10: Sodium 137, Potassium 3.4 L, Chloride 105, Carbon Dioxide 24.0, Anion Gap 8, BUN 32 H, Creatinine 2.06 H, Estim Creat Clear Calc 34.11, Est GFR (MDRD) Af Amer 30 L, Est GFR (MDRD) Non-Af 25 L, BUN/Creatinine Ratio 15.5, Glucose 111 H, Calcium 8.4 L, Magnesium 1.4 L 12/18/22 06:10: Phosphorus 4.6 Charges/Coding Visit Charges Inpatient E&M: 91965 Subs Hosp L2
[2022-12-18] MEDS: hydroCHLOROthiazide 25 MG Tablet PO (10:16)
[2022-12-18] MEDS: Gabapentin 100 MG Capsule PO ×2 (10:16→21:08)
[2022-12-18] MEDS: Losartan Potassium 100 MG Tablet PO (10:16)
--- NOTE | 2022-12-18 11:03 | DCINST_ITS ---
Discharge Instructions Diet Discharge Diet: Avery diet (Avery diet for 7 days.) Activity Discharge Activity: Return to Normal Activity Weight Bearing Status: Weight bearing as tolerated Dressing / Incision Call your doctor if you observe: Fever of 101 or Higher, Coldness, Increased Pain, Numbness or Tingling, Change in Color, Inability to urinate, Inability to have a bowel movement, Using more than 1 pad per hour, Shortness of breath, Dizziness, Fainting spells, Swelling in the ankles, Chest pain, Prolonged hiccupping, Increased palpitations (irregular heartbeat), Calf discomfort and Uncontrolled pain Follow Up Care When: IN 2 WEEKS Test Results: Test results from this visit will be discussed in further detail at your follow- up appointment, if applicable. Discharge Plan Admission Admit Date/Time: 12/16/22 23:18 Primary Reason for Your Visit: Lower GI bleed Attending Provider: Asher Gonzalez Primary Care Provider: Adenike Mcghee Consulting Providers: Promise Vaughn Discharge Orders/Prescriptions Prescriptions: No Action celecoxib 200 mg capsule 200 mg PO DAILY Label Comments: TAKE 1 CAPSULE BY MOUTHIONCE DAILY IF NEEDED FOR PAIN ropinirole 1 mg tablet 1 mg PO QHS Label Comments: TAKE 1 TABLET BY MOUTHTEVERY NIGHT AT BEDTIME gabapentin 100 mg capsule 100 mg PO BID Label Comments: TAKE 1 CAPSULE BY MOUTH 2nTIMES A DAYt rosuvastatin 10 mg tablet 10 mg PO QHS Label Comments: TAKE 1 TABLET BY MOUTHCONCE DAILYE telmisartan-hydrochlorothiazid 80-25 mg tablet 1 tab PO DAILY Label Comments: TAKE 1 TABLET BY MOUTH EVERY DAY Eliquis 5 mg Tablet 5 mg PO BID Referrals / Follow Up: Adenike Mcghee, [Primary Care Provider] -
[2022-12-18] MEDS: Vancomycin 125 MG/5 ML Susp PO.SYRINGE PO ×2 (11:30→16:54)
[2022-12-18] MEDS: Potassium Chloride Oral Tablet 20 MEQ 40 MEQ PO (11:30)
[2022-12-18] MEDS: Lactated Ringers 1,000 ML 100 ML IV (11:31)
--- NOTE | 2022-12-18 13:25 | CASEMGMT ---
MIKA ROOT Assessment: Face to Face with pt for initial transition planning/care coordination assessment. MIKA ROOT introduced self and role at [facility], pt voices understanding and consents to assessment. Pt is A/O x4 and answers all questions appropriately at this time. Pt lying in bed in no distress. Care providers, pharmacy, and demographics verified/updated. Admitting Dx: GI Bleed PCP:Taz Specialists:Pt denies. Preferred Pharmacy: [facility] Retail Insurance: [employer] [facility] Prescription Benefit: yes LNOK: Joan Coronado dtr Living Arrangements: Pt lives alone in a single story condo with 5 steps to enter with a rail. Pt reports she is I in ADL's and denies concerns at home. Transportation: Pt drives self and denies concerns with transportation. DME/HHC/SNF: Pt has a walker, cane and rollator at home. She typically uses the rollator. Pt denies hx of HHC or SNF stays. Pt states no concerns with going home at time of dc. She denies any needs for home services. Pt states no further concerns/needs. CM to follow. Advised pt to ask CM if any further question/concerns/needs arise, voices understanding. Pt Goal: Home Plan: Home
[2022-12-18] MEDS: Methylprednisolone Sod Succ 40 MG/ML VIAL IV ×2 (14:40→21:08)
[2022-12-18] MEDS: Atorvastatin Calcium 20 MG Tablet PO (21:08)
[2022-12-18] MEDS: Pramipexole Di-HCl 0.5 MG Tablet PO (21:08)
[2022-12-19] MEDS: Vancomycin 125 MG/5 ML Susp PO.SYRINGE PO ×5 (00:23→22:53)
[2022-12-19] MEDS: Lactated Ringers 1,000 ML 100 ML IV ×3 (00:23→22:51)
[2022-12-19 03:00] VITALS: BP 108/59; PULSE 75; RESP 17; TEMP 36.7; O2SAT 93
[2022-12-19] MEDS: Methylprednisolone Sod Succ 40 MG/ML VIAL IV ×3 (05:59→20:44)
[2022-12-19 06:00] VITALS: BMI 41.0
[2022-12-19 06:30] LABS: Absolute Lymphocyte Count 0.45 X10^3/uL (0.83-4.51); Absolute Neutrophil Count 5.5 X10^3/uL (2.0-7.7); Basophil# 0.01 X10^3/uL; Basophil% 0.2 % (0-1); Hematocrit 39.3 % (37-47); Hemoglobin 12.7 g/dL (12.0-15.0); Lymphocyte # 0.45 X10^3/ul (0.83-4.51); Mean Corp Hgb Conc 32.3 g/dL (32-36); Mean Corpuscular Hgb 31.1 pg (27.0-32.0); Mean Corpuscular Volume 96.1 fL (81-99); Mean Platelet Vol. 10.4 fl (6.2-12.0); Monocyte# 0.46 X10^3/uL; Monocyte% 7.2 % (0-10); NRBC Flagged by Analyzer 0 % (0-5); Neutrophil # 5.47 X10^3/uL (2.7-7.7); POSITIVE DIFFERENTIAL YES; Platelet Count 204 K/mm3 (150-450); RBC Distribution Width CV 11.8 % (11.6-14.6); RBC Distribution Width SD 41.4 fl (35.1-43.9); Red Blood Count 4.09 M/mm3 (4.2-5.4); White Blood Count 6.4 K/mm3 (4.4-11.0)
[2022-12-19 06:44] LABS: Differential Indicated SCAN CRITERIA MET
[2022-12-19 07:00] LABS: Differential Comment SCANNED
[2022-12-19 07:05] LABS: Anion Gap 10 (5-15); BUN 40 mg/dL (7-18); BUN/Creat Ratio 12.8 RATIO (10-20); Calcium,Total 8.7 mg/dL (8.5-10.1); Chloride 107 mmol/L (98-107); Creatinine, Serum 3.13 mg/dL (0.55-1.02); EST Glomerular Filtration Rate 15 mL/min (>60); Est Glom Filt Rate - Afr Amer 19 mL/min (>60); Estimated Creatinine Clearance 22.88 ml/min; Glucose 143 mg/dL (74-106); Magnesium 2.2 mg/dL (1.6-2.6); Potassium 3.8 mmol/L (3.5-5.1); Sodium Level 138 mmol/L (136-145)
[2022-12-19 07:52] VITALS: O2SAT 94
[2022-12-19 08:50] VITALS: BP 106/78; PULSE 73; RESP 18; TEMP 35.9; O2SAT 98
[2022-12-19] MEDS: Gabapentin 100 MG Capsule PO ×2 (08:50→20:44)
[2022-12-19] MEDS: Lactated Ringers 1,000 ML 999 ML IV (10:10)
--- NOTE | 2022-12-19 12:16 | PN.HOSP_ITS ---
Reason for Visit Reason for Visit: Diagnoses Gastrointestinal hemorrhage, unspecified (12/18/22) Follow-up for KEVIN and diarrhea Objective Data Objective Data Vital Signs: Vital Signs Temp Pulse Resp BP Pulse Ox O2 Del Method 96.7 F L 73 18 106/78 98 Room Air 12/19/22 08:50 12/19/22 08:50 12/19/22 08:50 12/19/22 08:50 12/19/22 08:50 12/19/22 09:09 Oxygen Delivery Method Room Air Weight: 208 lb 15.971 oz Body Mass Index (BMI) 41.0 Intake & Output: Intake and Output for Last 24 Hours 12/17/22 12/18/22 12/19/22 23:59 23:59 23:59 Intake Total 3468.33 / 3468.33 3934.00 / 3934.00 2310.25 / 2310.25 Balance 3468.33 / 3468.33 3934.00 / 3934.00 2310.25 / 2310.25 Lab / Micro Data Result Diagrams: 12/19/22 06:00 12/19/22 06:00 Labs: Laboratory Results - last 24 hr 12/19/22 06:00: WBC 6.4, RBC 4.09 L, Hgb 12.7, Hct 39.3, MCV 96.1, MCH 31.1, MCHC 32.3, RDW Std Deviation 41.4, RDW Coeff of Chandan 11.8, Plt Count 204, MPV 10.4, Immature Gran % (Auto) 0.600, Neut % (Auto) 85.0 H, Lymph % (Auto) 7.0 L, [place] % (Auto) 7.2, Eos % (Auto) 0.0, Baso % (Auto) 0.2, Absolute Neuts (auto) 5.5, Absolute Lymphs (auto) 0.45 L, Nucleated RBC % 0, Differential Comment SCANNED 12/19/22 06:00: Sodium 138, Potassium 3.8, Chloride 107, Carbon Dioxide 21.0, Anion Gap 10, BUN 40 H, Creatinine 3.13 H, Estim Creat Clear Calc 22.88, Est GFR (MDRD) Af Amer 19 L, Est GFR (MDRD) Non-Af 15 L, BUN/Creatinine Ratio 12.8, Glucose 143 H, Calcium 8.7, Magnesium 2.2 Micro: Microbiology 12/17/22 02:10 Stool C. difficile DNA Amplification - Final 12/17/22 02:10 Stool Enteric Bacteriology - Final 12/16/22 21:08 Stool Stool Occult Blood (BEKA) - Final Occult Blood Positive Physical Exam Narrative Patient does not have abdominal pain. Colonoscopy finding discussed with the patient and patient's daughter near the bedside. Physical exam General: Alert, Oriented x3, Cooperative HEENT: Atraumatic, PERRLA, EOMI, Normocephalic Oral: Oral mucosa moist. No hematemesis. No Gingival or Mucosal Lesions/ Ulcerations Neck: Supple, No JVD, Negative Carotid Bruits Lungs: Air entry diminished in bilateral lung bases. No crepitation/rhonchi Cardiovascular: Regular rate, Regular Rhythm, Normal S1, Normal S2, No murmurs Abdomen: Bowel Sounds Present, Soft, Non Tender, Non-Distended. No palpable mass. : No oliguria/anuria. No renal angle tenderness. No suprapubic tenderness. Extremities: Mild chronic left lower extremity swelling from DVT. Capillary Refill Less than 3 Seconds Skin: No rashes, No breakdown Musculoskeletal: No Tenderness to Palpation of Joints or Extremities. ROM intact. Bilateral knee and hip joints arthritis Neurological: Cranial nerves II-XII grossly intact, DTR 2+/4 and Symmetrical, Neuro grossly intact Psych/Mental Status: Normal Affect, Appropriate. Assessment & Plan Assessment/Plan (1) GI bleed: PLAN: Plan The patient is a 77 y/o F left lower extremity DVT on Eliquis admitted with 2- day history of persistent diarrhea about 6 BMs per day with no abdominal cramps nausea vomiting fever or chills. Stool color dark red to dark brown. No dizziness. #1. Acute GI Bleed with associated bloody diarrhea complicated by chronic anticoagulation secondary to recent DVT history in September 2022, potentially di verticular bleed: Patient is being admitted in PCU. Vitals are in normal range. Hemoglobin also between 13 to 14 g. No abdominal pain. GI is consulted. Plan for colonoscopy today. Stool for C. difficile and enteric bacteriology panel negative. Patient had colonoscopy about 10 years ago and was no major red flag as per the patient. 12/18: Colonoscopy finding discussed with the patient and her daughter. Shows diffuse inflammation from rectum to terminal ileum. Terminal ileum biopsy was done. Patient on IV Solu-Medrol. Discussed with the railroad car letterer. 12/19: Patient is still has diarrhea had 5-6 BM since morning today. Mainly clear liquid yellowish in color. As stool for C. difficile and enteric bacteriology panel are negative therefore started on Imodium. #2. Recent history DVT: Patient with 09/2022, left lower extremity DVT, last dose in the morning of 12/16/2022. #3. Hypertension: Continue home regimen including telmisartan, hydrochlorothiazide with hold parameters as needed, PRN hydralazine. #4. Hyperlipidemia: We will continue patient home statin therapy. #5. Restless leg syndrome: We will continue patient home Requip regimen. #6. Rheumatoid arthritis: Patient previously had been on methotrexate but is no longer taking this, temporally hold celecoxib, continue gabapentin. #7. Acute kidney injury on chronic Kidney Disease Stage II: Admission BUN/Cr 2 01/14.18, baseline renal function primarily 0.7-0.9. Patient BUNs/creatinine on baseline. Mild to moderate hyponatremia probably hypotonic hypovolemic, hypokalemia and normal anion gap metabolic acidosis. Patient getting IV fluid normal saline and potassium IV infusion. Monitor electrolytes and kidney function. 12/18: Acute kidney injury probably due to colon prep solution. Creatinine went up from 1.12-2.06. K3.4. Magnesium 1.4. Normal anion gap. Bicarb 24. Potassium and magnesium replaced. IV fluid Ringer lactate 100 mill per hour. Discharge was held because of acute kidney injury. 12/19: Creatinine further went up 3.13. BUN 40. Electrolytes in normal range. Ringer lactate 1 L bolus and then 100 mill per hour to continue. Nephrology consult. BMP up in afternoon. Follow-up kidney function and electrolytes tomorrow AM #8. GERD: continue patient home PPI. #9. DVT prophylaxis: SCDs, holding patient home Eliquis given acute presentation #1. #10. CODE status: Patient KARI is her daughter and living will is currently in place. Full Code status. Plan of management discussed with patient's daughter near the bedside. Charges/Coding Visit Charges Inpatient E&M: 50992 Subs Hosp L2
[2022-12-19] MEDS: Loperamide 2 MG Capsule PO ×2 (15:27→20:44)
[2022-12-19 16:00] VITALS: BP 111/65; PULSE 67; RESP 16; TEMP 36.4; O2SAT 97
[2022-12-19 17:57] LABS: Anion Gap 10 (5-15); BUN 39 mg/dL (7-18); BUN/Creat Ratio 12.7 RATIO (10-20); Calcium,Total 8.6 mg/dL (8.5-10.1); Chloride 107 mmol/L (98-107); Creatinine, Serum 3.08 mg/dL (0.55-1.02); EST Glomerular Filtration Rate 16 mL/min (>60); Est Glom Filt Rate - Afr Amer 19 mL/min (>60); Estimated Creatinine Clearance 23.26 ml/min; Glucose 165 mg/dL (74-106); Potassium 3.4 mmol/L (3.5-5.1); Sodium Level 138 mmol/L (136-145)
[2022-12-19 20:42] VITALS: BP 119/60; PULSE 64; RESP 18; TEMP 36.3; O2SAT 96
[2022-12-19] MEDS: Atorvastatin Calcium 20 MG Tablet PO (20:44)
[2022-12-19] MEDS: Pramipexole Di-HCl 0.5 MG Tablet PO (20:44)
[2022-12-19] MEDS: MELATONIN 3 MG TABLET PO (20:44)
--- NOTE | 2022-12-19 23:10 | PN_ITS ---
Subjective Subjective Patient underwent a colonoscopy for lower GI bleeding. She is not having any bleeding at this time. Objective Data Objective Data Vital Signs: Vital Signs Temp Pulse Resp BP Pulse Ox O2 Del Method 97.4 F L 64 18 119/60 96 Room Air 12/19/22 20:42 12/19/22 20:42 12/19/22 20:42 12/19/22 20:42 12/19/22 20:42 12/19/22 21:00 Oxygen Delivery Method Room Air Weight: 208 lb 15.971 oz Body Mass Index (BMI) 41.0 Intake & Output: Intake and Output for Last 24 Hours 12/17/22 12/18/22 12/19/22 23:59 23:59 23:59 Intake Total 3468.33 / 3468.33 3934.00 / 3934.00 3773.75 / 3773.75 Balance 3468.33 / 3468.33 3934.00 / 3934.00 3773.75 / 3773.75 Lab / Micro Data Result Diagrams: 12/19/22 06:00 12/19/22 17:33 Labs: Laboratory Results - last 24 hr 12/19/22 06:00: WBC 6.4, RBC 4.09 L, Hgb 12.7, Hct 39.3, MCV 96.1, MCH 31.1, MCHC 32.3, RDW Std Deviation 41.4, RDW Coeff of Chandan 11.8, Plt Count 204, MPV 10.4, Immature Gran % (Auto) 0.600, Neut % (Auto) 85.0 H, Lymph % (Auto) 7.0 L, [place] % (Auto) 7.2, Eos % (Auto) 0.0, Baso % (Auto) 0.2, Absolute Neuts (auto) 5.5, Absolute Lymphs (auto) 0.45 L, Nucleated RBC % 0, Differential Comment SCANNED 12/19/22 06:00: Sodium 138, Potassium 3.8, Chloride 107, Carbon Dioxide 21.0, Anion Gap 10, BUN 40 H, Creatinine 3.13 H, Estim Creat Clear Calc 22.88, Est GFR (MDRD) Af Amer 19 L, Est GFR (MDRD) Non-Af 15 L, BUN/Creatinine Ratio 12.8, Glucose 143 H, Calcium 8.7, Magnesium 2.2 12/19/22 17:33: Sodium 138, Potassium 3.4 L, Chloride 107, Carbon Dioxide 21.0, Anion Gap 10, BUN 39 H, Creatinine 3.08 H, Estim Creat Clear Calc 23.26, Est GFR (MDRD) Af Amer 19 L, Est GFR (MDRD) Non-Af 16 L, BUN/Creatinine Ratio 12.7, Glucose 165 H, Calcium 8.6 Micro: Microbiology 12/17/22 02:10 Stool C. difficile DNA Amplification - Final 12/17/22 02:10 Stool Enteric Bacteriology - Final 12/16/22 21:08 Stool Stool Occult Blood (BEKA) - Final Occult Blood Positive Physical Exam Narrative Patient does not have abdominal pain. Physical exam General: Alert, Oriented x3, Cooperative HEENT: Atraumatic, PERRLA, EOMI, Normocephalic Oral: Oral mucosa moist. No hematemesis. No Gingival or Mucosal Lesions/ Ulcerations Neck: Supple, No JVD, Negative Carotid Bruits Lungs: Air entry diminished in bilateral lung bases. No crepitation/rhonchi Cardiovascular: Regular rate, Regular Rhythm, Normal S1, Normal S2, No murmurs Abdomen: Bowel Sounds Present, Soft, Non Tender, Non-Distended. No palpable mass. : No oliguria/anuria. No renal angle tenderness. No suprapubic tenderness. Extremities: Mild chronic left lower extremity swelling from DVT. Capillary Refill Less than 3 Seconds Skin: No rashes, No breakdown Musculoskeletal: No Tenderness to Palpation of Joints or Extremities. ROM intact. Bilateral knee and hip joints arthritis Neurological: Cranial nerves II-XII grossly intact, DTR 2+/4 and Symmetrical, Neuro grossly intact Psych/Mental Status: Normal Affect, Appropriate. Assessment & Plan Assessment/Plan (1) GI bleed: PLAN: Plan The patient is a 77 y/o F left lower extremity DVT on Eliquis admitted with 2- day history of persistent diarrhea. Acute GI Bleed with associated bloody diarrhea complicated by chronic anticoagulation secondary to recent DVT history in September 2022, potentially diverticular bleed: Her colonoscopy shows diffuse inflammation from rectum to terminal ileum. Terminal ileum biopsy was done. Patient on IV Solu-Medrol. I will have to talk to patient about going on a steroid sparing agent as an outpatient. Patient is still has diarrhea had 5-6 BM since morning today. Mainly clear liquid yellowish in color. As stool for C. difficile and enteric bacteriology panel are negative therefore started on Imodium. Please start her on colestipol 2gm bid. Recent history DVT: Anticoagulation is on hold Rheumatoid arthritis: Patient previously had been on methotrexate. This medicati on was likely treating her ulcerative colitis and her RA Charges/Coding Visit Charges Inpatient E&M: 79983 Subs Hosp L3
[2022-12-20 04:00] VITALS: BP 114/54; PULSE 62; RESP 16; TEMP 36.4; O2SAT 93
[2022-12-20] MEDS: Vancomycin 125 MG/5 ML Susp PO.SYRINGE PO ×4 (05:46→23:03)
[2022-12-20] MEDS: Methylprednisolone Sod Succ 40 MG/ML VIAL IV ×3 (05:46→22:55)
[2022-12-20 06:00] VITALS: BMI 14.9
--- NOTE | 2022-12-20 07:47 | CON.PCM.RE_ITS ---
Assessment & Plan Assessment/Plan (1) KEVIN (acute kidney injury): (2) Metabolic acidosis: (3) HTN (hypertension): PLAN: Plan Impression/Plan: The patient is a 77-year-old woman with past history of hypertension, DVT of left lower extremity on apixaban, hyperlipidemia, GERD, rheumatoid arthritis, and restless leg syndrome. The patient was admitted to the hospital on 12/16/2022 with persistent diarrhea and GI bleed. She was diagnosed with colitis and is now being treated with corticosteroid. Nephrology is following because of KEVIN. Acute kidney injury. Baseline renal function is normal. Creatinine was 0.94 mg/dL on 11/13/2022 prior to this admission. I suspect KEVIN is secondary to volume depletion from diarrhea and lack of oral intake. The patient was also on ARB and thiazide diuretic prior to admission as well. So far, serum creatinine has peaked at 3.13 mg/dL on 12/19/2022. Creatinine is better today at 2.72 mg/dL. Agree with continuing to volume expand the patient with IV fluid. Continue to hold telmisartan and hydrochlorothiazide. Encouraged patient to push oral solute/fluid intake. There is no need for kidney replacement therapy. Recheck renal function again tomorrow. Acute metabolic acidosis. Serum bicarbonate level is down to 19 mmol/L today. This is likely due to KEVIN and prior bicarbonate loss with diarrhea. Agree with volume expansion using LR rather than normal saline. Recheck serum bicarbonate level tomorrow. There is no need from nephrology standpoint to supplement with sodium bicarbonate. Hypertension. BP is reasonably controlled without telmisartan?HCTZ. I would recommend holding telmisartan and HCTZ for now since the patient has KEVIN. Continue to monitor BP. We can start amlodipine instead if BP is consistently above 140/90. Nephrology plan discussed with Dr. Gonzalez. HPI Consult Data Date of Consult: 12/21/22 HPI Narrative Reason for Consultation: Acute kidney injury HPI Narrative: The patient is a 77-year-old woman with past history of hypertension, DVT of left lower extremity on apixaban, hyperlipidemia, GERD, rheumatoid arthritis, and restless leg syndrome. The patient was admitted to the hospital on 12/16/2022 with persistent diarrhea. She was diagnosed with acute GI bleed. She underwent a colonoscopy on 12/18/2022 which showed colitis and diverticulosis. She has been started on corticosteroid. Nephrology is asked see the patient because of KEVIN. Serum creatinine was 0.94 mg/dL on 11/13/2022 prior to admission. On presentation on 12/16/2022, serum creatinine was already 1.18 mg/dL. Serum creatinine increased to 3.13 mg/dL on 12/19/2022. The patient denies chest pain, shortness of breath at rest, nausea, vomiting, or lower extremity edema. Diarrhea has improved. The patient denies lower urinary tract symptoms. The patient has not been given any NSAIDs or IV contrast since her arrival to the hospital. [facility], [facility] Medical History (Updated 12/21/22 @ 09:[address] Milton Huff MD) Chronic neuropathic pain DVT (deep venous thrombosis) HLD (hyperlipidemia) Hypertension Rheumatoid arthritis RLS (restless legs syndrome) Home Medications apixaban 5 mg tablet (Eliquis) 5 mg PO BID DVT 12/17/22 [History Last Taken 12/16/22] celecoxib 200 mg capsule 200 mg PO DAILY pain 12/17/22 [History Last Taken 12/16/22] gabapentin 100 mg capsule 100 mg PO BID neuropathy 12/17/22 [History Last Taken 12/16/22] ropinirole 1 mg tablet 1 mg PO QHS restless legs 12/17/22 [History Last Taken 12/15/22] rosuvastatin 10 mg tablet 10 mg PO QHS cholesterol 12/17/22 [History Last Taken 12/15/22] telmisartan 80 mg-hydrochlorothiazide 25 mg tablet 1 tab PO DAILY HTN 12/17/22 [History Last Taken 12/16/22] Allergy/AdvReac Type Severity Reaction Status Date / Time No Known Allergies Allergy Verified 12/16/22 19:27 Family History (Updated 12/17/22 @ 02:[address] Promise Vaughn MD) Mother Pancreatic cancer Father Heart disease Hypertension Surgical History (Updated 12/17/22 @ 02:[address] Promise Vaughn MD) H/O: hysterectomy History of ankle surgery History of tonsillectomy and adenoidectomy Social History (Updated 12/17/22 @ 02:[address] Promise Vaughn MD) household members: none Smoking Status: Never smoker alcohol intake: never substance use type: does not use ROS ROS Narrative 10 out of 10 ROS was done. They are otherwise noncontributory to what is already documented in HPI. Physical Exam Narrative General: Alert and oriented x3, no apparent distress HEENT: Normocephalic, atraumatic. Mucous membrane moist without erythema. PERRLA, EOMI, hearing is intact. Neck: Supple, no JVD. Trachea is midline. Heart: Normal S1, S2. Rate is regular. No rubs, murmurs or gallops. Lungs: Clear to auscultation bilaterally. Abdomen: Normal bowel sound, soft, nontender, no guarding or rebound. Extremities: No clubbing, cyanosis, or edema. Musculoskeletal: Full passive range of motion. No joint swelling. Skin: No rash. Skin is warm and dry. Psychiatric: Normal mood and affect. Neurologic: No focal neurologic deficits. Lab / Micro Data Result Diagrams: 12/19/22 06:00 12/21/22 05:10 Labs: Laboratory Results - last 24 hr 12/19/22 17:33: Sodium 138, Potassium 3.4 L, Chloride 107, Carbon Dioxide 21.0, Anion Gap 10, BUN 39 H, Creatinine 3.08 H, Estim Creat Clear Calc 23.26, Est GFR (MDRD) Af Amer 19 L, Est GFR (MDRD) Non-Af 16 L, BUN/Creatinine Ratio 12.7, Glucose 165 H, Calcium 8.6
[2022-12-20 07:52] LABS: Anion Gap 9 (5-15); BUN 46 mg/dL (7-18); BUN/Creat Ratio 16.9 RATIO (10-20); Calcium,Total 8.4 mg/dL (8.5-10.1); Chloride 112 mmol/L (98-107); Creatinine, Serum 2.72 mg/dL (0.55-1.02); EST Glomerular Filtration Rate 18 mL/min (>60); Est Glom Filt Rate - Afr Amer 22 mL/min (>60); Estimated Creatinine Clearance 9.58 ml/min; Glucose 126 mg/dL (74-106); Potassium 3.6 mmol/L (3.5-5.1); Sodium Level 140 mmol/L (136-145)
--- NOTE | 2022-12-20 08:02 | PN.HOSP_ITS ---
Reason for Visit Reason for Visit: Diagnoses Gastrointestinal hemorrhage, unspecified (12/18/22) Subjective Subjective Follow-up for KEVIN. Objective Data Objective Data Vital Signs: Vital Signs Temp Pulse Resp BP Pulse Ox O2 Del Method 97.5 F L 62 16 114/54 L 93 Room Air 12/20/22 04:00 12/20/22 04:00 12/20/22 04:00 12/20/22 04:00 12/20/22 04:00 12/20/22 04:00 Oxygen Delivery Method Room Air Weight: 76 lb 0.952 oz Body Mass Index (BMI) 14.9 Intake & Output: Intake and Output for Last 24 Hours 12/18/22 12/19/22 12/20/22 23:59 23:59 23:59 Intake Total 3934.00 / 3934.00 3773.75 / 4008.75 445 / 445 Balance 3934.00 / 3934.00 3773.75 / 4008.75 445 / 445 Lab / Micro Data Result Diagrams: 12/19/22 06:00 12/20/22 06:28 Labs: Laboratory Results - last 24 hr 12/19/22 17:33: Sodium 138, Potassium 3.4 L, Chloride 107, Carbon Dioxide 21.0, Anion Gap 10, BUN 39 H, Creatinine 3.08 H, Estim Creat Clear Calc 23.26, Est GFR (MDRD) Af Amer 19 L, Est GFR (MDRD) Non-Af 16 L, BUN/Creatinine Ratio 12.7, Glucose 165 H, Calcium 8.6 12/20/22 06:28: Sodium 140, Potassium 3.6, Chloride 112 H, Carbon Dioxide 19.0 L , Anion Gap 9, BUN 46 H, Creatinine 2.72 H, Estim Creat Clear Calc 9.58, Est GFR (MDRD) Af Amer 22 L, Est GFR (MDRD) Non-Af 18 L, BUN/Creatinine Ratio 16.9, Glucose 126 H, Calcium 8.4 L Micro: Microbiology 12/17/22 02:10 Stool C. difficile DNA Amplification - Final 12/17/22 02:10 Stool Enteric Bacteriology - Final 12/16/22 21:08 Stool Stool Occult Blood (BEKA) - Final Occult Blood Positive Physical Exam Narrative Patient creatinine has been stabilized now and started trending down. Patient did not had bowel movement today. The patient does not have abdominal pain. Colonoscopy finding discussed with the patient and patient's daughter near the bedside. Physical exam General: Alert, Oriented x3, Cooperative HEENT: Atraumatic, PERRLA, EOMI, Normocephalic Oral: Oral mucosa moist. No hematemesis. No Gingival or Mucosal Lesions/ Ulcerations Neck: Supple, No JVD, Negative Carotid Bruits Lungs: Air entry diminished in bilateral lung bases. No crepitation/rhonchi Cardiovascular: Regular rate, Regular Rhythm, Normal S1, Normal S2, No murmurs Abdomen: Bowel Sounds Present, Soft, Non Tender, Non-Distended. No palpable mass. : No oliguria/anuria. No renal angle tenderness. No suprapubic tenderness. Extremities: Mild chronic left lower extremity swelling from DVT. Capillary Refill Less than 3 Seconds Skin: No rashes, No breakdown Musculoskeletal: No Tenderness to Palpation of Joints or Extremities. ROM intact. Bilateral knee and hip joints arthritis Neurological: Cranial nerves II-XII grossly intact, DTR 2+/4 and Symmetrical, Neuro grossly intact Psych/Mental Status: Normal Affect, Appropriate. Assessment & Plan Assessment/Plan (1) GI bleed: PLAN: Plan The patient is a 77 y/o F left lower extremity DVT on Eliquis admitted with 2- day history of persistent diarrhea about 6 BMs per day with no abdominal cramps nausea vomiting fever or chills. Stool color dark red to dark brown. No dizzin ess. #1. Acute GI Bleed with associated bloody diarrhea complicated by chronic anticoagulation secondary to recent DVT history in September 2022, potentially diverticular bleed: Patient is being admitted in PCU. Vitals are in normal range. Hemoglobin also between 13 to 14 g. No abdominal pain. GI is consulted. Plan for colonoscopy today. Stool for C. difficile and enteric bacteriology panel negative. Patient had colonoscopy about 10 years ago and was no major red flag as per the patient. 12/18: Colonoscopy finding discussed with the patient and her daughter. Shows diffuse inflammation from rectum to terminal ileum. Terminal ileum biopsy was done. Patient on IV Solu-Medrol. Discussed with the product safety coordinator. 12/19: Patient is still has diarrhea had 5-6 BM since morning today. Mainly clear liquid yellowish in color. As stool for C. difficile and enteric bacteriology panel are negative therefore started on Imodium. 12/20: Diarrhea is controlled and none today. #2. Recent history DVT: Patient with 09/2022, left lower extremity DVT, last dose in the morning of 12/16/2022. #3. Hypertension: Continue home regimen including telmisartan, hydrochlorothiazide with hold parameters as needed, PRN hydralazine. #4. Hyperlipidemia: We will continue patient home statin therapy. #5. Restless leg syndrome: We will continue patient home Requip regimen. #6. Rheumatoid arthritis: Patient previously had been on methotrexate but is no longer taking this, temporally hold celecoxib, continue gabapentin. #7. Acute kidney injury on chronic Kidney Disease Stage II: Admission BUN/Cr 26/1.18, baseline renal function primarily 0.7-0.9. Patient BUNs/creatinine on baseline. Mild to moderate hyponatremia probably hypotonic hypovolemic, hypokalemia and normal anion gap metabolic acidosis. Patient getting IV fluid normal saline and potassium IV infusion. Monitor electrolytes and kidney function. 12/18: Acute kidney injury probably due to colon prep solution. Creatinine went u p from 1.12-2.06. K3.4. Magnesium 1.4. Normal anion gap. Bicarb 24. Potassium and magnesium replaced. IV fluid Ringer lactate 100 mill per hour. Discharge was held because of acute kidney injury. 12/19: Creatinine further went up 3.13. BUN 40. Electrolytes in normal range. Ringer lactate 1 L bolus and then 100 mill per hour to continue. Nephrology consult. BMP up in afternoon. Follow-up kidney function and electrolytes tomorrow AM 12/20: Creatinine started improving. Today at 2.72. Her baseline is 0.9-1. She was admitted with 1.18 increased to 3.13 and trending down. Discussed with the auto body straightener. Continue Ringer lactate 100 mill per hour. #8. GERD: continue patient home PPI. #9. DVT prophylaxis: SCDs, holding patient home Eliquis given acute presentation #1. #10. CODE status: Patient KARI is her daughter and living will is currently in place. Full Code status. Plan of management discussed with patient's daughter near the bedside. Anticipate discharge tomorrow if further decrease in creatinine. Wind Tunnel Mechanic is following it. Charges/Coding Visit Charges Inpatient E&M: 28684 Subs Hosp L2
[2022-12-20 08:52] VITALS: BP 114/56; PULSE 86; RESP 18; TEMP 36.4; O2SAT 97
[2022-12-20] MEDS: Gabapentin 100 MG Capsule PO ×2 (08:55→22:55)
[2022-12-20 14:57] VITALS: BP 110/36; PULSE 58; RESP 18; TEMP 36.3; O2SAT 95
[2022-12-20] MEDS: Lactated Ringers 1,000 ML 100 ML IV (15:04)
[2022-12-20 17:02] VITALS: BP 112/57; PULSE 57
[2022-12-20 22:53] VITALS: BP 120/65; PULSE 60; RESP 16; TEMP 36.4; O2SAT 94
[2022-12-20] MEDS: Atorvastatin Calcium 20 MG Tablet PO (22:55)
[2022-12-20] MEDS: Pramipexole Di-HCl 0.5 MG Tablet PO (22:55)
[2022-12-21 02:07] VITALS: BMI 40.9
[2022-12-21 04:00] VITALS: BP 134/66; PULSE 58; RESP 16; TEMP 36.6; O2SAT 94
[2022-12-21] MEDS: Lactated Ringers 1,000 ML 100 ML IV (04:17)
[2022-12-21] MEDS: Methylprednisolone Sod Succ 40 MG/ML VIAL IV (05:23)
[2022-12-21] MEDS: Vancomycin 125 MG/5 ML Susp PO.SYRINGE PO (05:23)
[2022-12-21 06:47] LABS: Mucous, Urine 0 SEEN /hpf (<or=2+); Red Blood Cells-Urine 0 SEEN /hpf (0-5)
[2022-12-21 07:05] LABS: Color, Urine Yellow (Yellow); Glucose, Dipstick Normal (Normal); Ketone-Dipstick Negative (Negative); Leukocyte Esterase-Dipstick 100 /ul (Negative); Nitrite-Dipstick Negative (Negative); Occult Blood-Urine Negative /ul (Negative); Protein-Dipstick Negative (Negative); Specific Gravity, Urine 1.015 (1.002-1.030); Urine Bilirubin Dipstick Negative (Negative); Urine Clarity Clear (Clear); Urine Urobilinogen Normal (Normal)
[2022-12-21 07:06] LABS: Anion Gap 9 (5-15); BUN 58 mg/dL (7-18); BUN/Creat Ratio 23.3 RATIO (10-20); Calcium,Total 8.5 mg/dL (8.5-10.1); Chloride 110 mmol/L (98-107); Creatinine, Serum 2.49 mg/dL (0.55-1.02); EST Glomerular Filtration Rate 20 mL/min (>60); Est Glom Filt Rate - Afr Amer 24 mL/min (>60); Estimated Creatinine Clearance 28.71 ml/min; Glucose 136 mg/dL (74-106); Potassium 3.5 mmol/L (3.5-5.1); Sodium Level 142 mmol/L (136-145)
[2022-12-21 07:10] LABS: Renal Epithelial Cells 0-5 SEEN /hpf (0-5); Squamous Epithelial Cells - UA 0-5 SEEN /hpf (5-10); White Blood Cells 10-25 SEEN /hpf (0-5)
[2022-12-21 07:11] LABS: Bacteria RARE /hpf (None Seen)
[2022-12-21] MEDS: 0.9% Saline Lock 10 ML Syringe IV (09:24)
[2022-12-21] MEDS: Gabapentin 100 MG Capsule PO (09:33)
[2022-12-21 09:35] VITALS: BP 131/70; PULSE 53; RESP 18; TEMP 37.1; O2SAT 93
--- NOTE | 2022-12-21 11:39 | PN.RENAL_ITS ---
Subjective Subjective Following for KEVIN Patient resting quietly in bed. Denies any complaints. Hoping to go home today. Objective Data Objective Data Vital Signs: Vital Signs Temp Pulse Resp BP Pulse Ox O2 Del Method 98.7 F 53 L 18 131/70 H 93 Room Air 12/21/22 09:35 12/21/22 09:35 12/21/22 09:35 12/21/22 09:35 12/21/22 09:35 12/21/22 09:35 Oxygen Delivery Method Room Air Weight: 94.6 kg Body Mass Index (BMI) 40.9 Intake & Output: Intake and Output for Last 24 Hours 12/19/22 12/20/22 12/21/22 23:59 23:59 23:59 Intake Total 3773.75 / 4008.75 1839.5 / 1839.5 1385 / 1385 Balance 3773.75 / 4008.75 1839.5 / 1839.5 1385 / 1385 Lab / Micro Data Result Diagrams: 12/19/22 06:00 12/21/22 05:10 Labs: Laboratory Results - last 24 hr 12/21/22 05:10: Sodium 142, Potassium 3.5, Chloride 110 H, Carbon Dioxide 23.0, Anion Gap 9, BUN 58 H, Creatinine 2.49 H, Estim Creat Clear Calc 28.71, Est GFR (MDRD) Af Amer 24 L, Est GFR (MDRD) Non-Af 20 L, BUN/Creatinine Ratio 23.3 H, Glucose 136 H, Calcium 8.5 12/21/22 06:45: Urine Color Yellow, Urine Clarity Clear, Urine pH 5.0, Ur Specific [place] 1.015, Urine Protein Negative, Urine Glucose (UA) Normal, Urine Ketones Negative, Urine Occult Blood Negative, Urine Nitrite Negative, Urine Bilirubin Negative, Urine Urobilinogen Normal, Ur Leukocyte Esterase 100 H, Urine RBC 0 SEEN, Urine WBC 10-25 SEEN, Ur Squamous Epith Cells 0-5 SEEN, Ur Renal Epithelial Cell 0-5 SEEN, Urine Bacteria RARE, Urine Mucus 0 SEEN Micro: Microbiology 12/17/22 02:10 Stool C. difficile DNA Amplification - Final 12/17/22 02:10 Stool Enteric Bacteriology - Final 12/16/22 21:08 Stool Stool Occult Blood (BEKA) - Final Occult Blood Positive Physical Exam Narrative General: Alert and oriented x3, no apparent distress HEENT: Normocephalic, atraumatic. Mucous membranes moist without erythema. Heart: Normal S1, S2. Rate is regular. No rubs, murmurs or gallops. Lungs: Clear to auscultation anteriorly and posteriorly Abdomen: Normal bowel sounds, soft, nontender Extremities: No clubbing, cyanosis, or edema. Assessment & Plan Assessment/Plan (1) KEVIN (acute kidney injury): (2) Metabolic acidosis: (3) HTN (hypertension): PLAN: Plan Impression/Plan: The patient is a 77-year-old woman with past history of hypertension, DVT of left lower extremity on apixaban, hyperlipidemia, GERD, rheumatoid arthritis, and restless leg syndrome. The patient was admitted to the hospital on 12/16/2022 with persistent diarrhea and GI bleed. She was diagnosed with colitis and is now being treated with corticosteroid. Nephrology is following because of KEVIN. Acute kidney injury. Baseline renal function is normal. Creatinine was 0.94 mg/dL on 11/13/2022 prior to this admission. Suspect KEVIN is secondary to volume depletion from diarrhea and lack of oral intake. The patient was also on ARB and thiazide diuretic prior to admission as well. Serum creatinine peaked 3.13 mg/dL on 12/19/2022. Creatinine is improving daily and today her creatinine is 2.49 mg/dL. Patient is nonoliguric Patient was on IV fluids but this has been discontinued. No further need for IVF at this time. Continue to hold telmisartan/hydrochlorothiazide at discharge Encouraged patient to push oral solute/fluid intake. Reviewed with patient to avoid NSAIDs Acute metabolic acidosis. Secondary to diarrhea, improved, today bicarb 23. Patient does not need any bicarb supplementation at discharge. Hypertension. BP is reasonably controlled without telmisartan?HCTZ. Disposition; Nephrology plan discussed with Dr. Gipson. KYE for discharge per renal standpoint. We will arrange for hospital follow-up in [place] office.
--- NOTE | 2022-12-21 12:00 | PN_ITS ---
Subjective Subjective Patient is doing well and has not had any signs or symptoms of GI bleeding. Objective Data Objective Data Vital Signs: Vital Signs Temp Pulse Resp BP Pulse Ox O2 Del Method 98.7 F 53 L 18 131/70 H 93 Room Air 12/21/22 09:35 12/21/22 09:35 12/21/22 09:35 12/21/22 09:35 12/21/22 09:35 12/21/22 09:35 Oxygen Delivery Method Room Air Weight: 208 lb 8.917 oz Body Mass Index (BMI) 40.9 Intake & Output: Intake and Output for Last 24 Hours 12/19/22 12/20/22 12/21/22 23:59 23:59 23:59 Intake Total 3773.75 / 4008.75 1839.5 / 1839.5 2380 / 2380 Balance 3773.75 / 4008.75 1839.5 / 1839.5 2380 / 2380 Lab / Micro Data Result Diagrams: 12/19/22 06:00 12/21/22 05:10 Labs: Laboratory Results - last 24 hr 12/21/22 05:10: Sodium 142, Potassium 3.5, Chloride 110 H, Carbon Dioxide 23.0, Anion Gap 9, BUN 58 H, Creatinine 2.49 H, Estim Creat Clear Calc 28.71, Est GFR (MDRD) Af Amer 24 L, Est GFR (MDRD) Non-Af 20 L, BUN/Creatinine Ratio 23.3 H, Glucose 136 H, Calcium 8.5 12/21/22 06:45: Urine Color Yellow, Urine Clarity Clear, Urine pH 5.0, Ur Spec ific [place] 1.015, Urine Protein Negative, Urine Glucose (UA) Normal, Urine Ketones Negative, Urine Occult Blood Negative, Urine Nitrite Negative, Urine Bilirubin Negative, Urine Urobilinogen Normal, Ur Leukocyte Esterase 100 H, Urine RBC 0 SEEN, Urine WBC 10-25 SEEN, Ur Squamous Epith Cells 0-5 SEEN, Ur Renal Epithelial Cell 0-5 SEEN, Urine Bacteria RARE, Urine Mucus 0 SEEN Micro: Microbiology 12/17/22 02:10 Stool C. difficile DNA Amplification - Final 12/17/22 02:10 Stool Enteric Bacteriology - Final 12/16/22 21:08 Stool Stool Occult Blood (BEKA) - Final Occult Blood Positive Physical Exam Const alert, oriented x3, no apparent distress, average body habitus and well nourished Constitutional Narrative: Pleasant elderly, morbidly obese white female sitting up on the edge of the bed General Appearance: cooperative, comfortable, well kempt and well developed Orientation / Consciousness: awake, oriented to person, oriented to place and oriented to time Exam Limitations: no limitations Nutritional Appearance: morbidly obese HEENT normocephalic, head/scalp atraumatic, hearing grossly normal bilaterally and moist oral mucous membranes HEENT Narrative: Mallampati 2-3, no thrush Eyes PERRL, EOMs intact bilaterally and conjunctivae normal Eyes Narrative: No scleral icterus Neck no lymphadenopathy, supple and no JVD Resp normal respiratory effort, no retractions, no use of accessory muscles and clear to auscultation bilaterally Auscultation: Negative for rales, rhonchi or wheezes Cardio regular rate, regular rhythm, S1 normal heart sound, S2 normal heart sound, no murmurs, no rub, no gallops and no clicks GI normal to inspection, nondistended, normoactive bowel sounds and soft to palpation Extremity no clubbing, cyanosis or edema Extremity Narrative: 2+ pedal pulses Skin no rashes or lesions noted, no wounds, skin turgor normal and no jaundice Neuro oriented x3, CN's II-XII intact bilaterally and moves all extremities Speech: speech normal Psych affect normal Psych Narrative: Very pleasant, appropriately interactive Assessment & Plan Assessment/Plan (1) GI bleed: PLAN: Plan The patient is a 77 y/o F left lower extremity DVT on Eliquis admitted with 2- day history of persistent diarrhea. Acute GI Bleed with associated bloody diarrhea complicated by chronic anticoagulation secondary to recent DVT history in September 2022, potentially diverticular bleed: Her colonoscopy shows diffuse inflammation from rectum to terminal ileum. Terminal ileum biopsy was done. Patient on IV Solu-Medrol. I will have to talk to patient about going on a steroid sparing agent as an outpatient. Patient is still has diarrhea had 5-6 BM since morning today. Mainly clear liquid yellowish in color. As stool for C. difficile and enteric bacteriology panel are negative therefore started on Imodium. Please start her on colestipol 2gm bid. Recent history DVT: Anticoagulation is on hold Rheumatoid arthritis: Patient previously had been on methotrexate. This m edication was likely treating her ulcerative colitis and her RA She is okay to be DC'd from GI standpoint Charges/Coding Visit Charges Inpatient E&M: 01708 Subs Hosp L3
--- NOTE | 2022-12-21 12:14 | PCM.DC.SUM ---
Providers Date of Admission: 12/18/22 Date of Discharge: 12/21/22 Primary Care Physician: Adenike Mcghee, Consultations 12/16/22 23:54 Consult: Gastroenterology Routine Consulting Provider: Nini Gastroenterology Reason for Consult: GI bleed EMERGENT Consult: No Notified: Yes Date Notified: 12/16/22 Time Notified: 23:19 Method of Notification: ED Physician Initiated 12/19/22 09:15 Consult: Nephrology Routine Consulting Provider: Nasrin Lambert Reason for Consult: KEVIN on ckd 3 EMERGENT Consult: No Notified: Yes Date Notified: 12/19/22 Time Notified: 09:15 Method of Notification: Verbal Reason For Visit: GI BLEED Diagnosis Discharge Diagnosis (1) KEVIN (acute kidney injury): Status: Acute Code(s): N17.9 - Acute kidney failure, unspecified (2) Metabolic acidosis: Status: Acute Code(s): E87.20 - Acidosis, unspecified (3) HTN (hypertension): Status: Chronic Code(s): I10 - Essential (primary) hypertension Medications at Discharge Home Medications apixaban 5 mg tablet (Eliquis) 5 mg PO BID DVT 12/17/22 gabapentin 100 mg capsule 100 mg PO BID neuropathy 12/17/22 ropinirole 1 mg tablet 1 mg PO QHS restless legs 12/17/22 rosuvastatin 10 mg tablet 10 mg PO QHS cholesterol 12/17/22 telmisartan 80 mg-hydrochlorothiazide 25 mg tablet 1 tab PO DAILY HTN 12/17/22 budesonide 3 mg capsule,delayed,extended release 9 mg PO DAILY #90 ea 12/21/22 Hospital Course Operations None Procedures EGD Summary of Care Provided Minutes Spent on Discharge: 38 Hospital Course: Mrs. De León is a 77-year-old white female who presented to the emergency department at [facility] on 12/16/2022 with diarrhea and bloody stools for 2 days. Patient is on Eliquis at baseline for left lower extremity DVT. She was having at least 6 if not more bouts of diarrhea daily. It was not associated with abdominal cramping, nausea, or vomiting. She denies any fever or chills. She had never had anything like this previously. Vital signs and labs on presentation were unremarkable however her stool guaiac was positive and she was admitted to the medical floor. Her anticoagulation was held and bowel prep was recommended for colonoscopy the next morning. She was evaluated by gastroenterology and was taken for colonoscopy on 12/18/2022. Colonoscopy demonstrated fair prep with colitis showing inflammation from the rectum all the way to the terminal ileum that was severe and new compared to previous exam. Biopsies were taken. Ileitis was present as well and biopsies were taken. Diverticulosis in the rectosigmoid colon and the descending colon was identified. She was started on Solu-Medrol 40 mg every 8 hours and pathology was pending at the time of discharge. Repeat colonoscopy in the future was recommended after outpatient follow-up. From admission on 12/16 through 12/18/2022 her creatinine doubled from 1.12-2.06 and trended up further on 12/19/2022 at which time nephrology was consulted. Nephrology evaluated the patient on 12/20/2022 and felt that the her KEVIN was likely related to volume depletion from diarrhea and lack of oral intake along with bowel prep in conjunction with this. The patient was also on an ARB and thiazide diuretic that contributed likely as well. Her diuretic and ARB were held as was her Celebrex. Serum bicarbonate was down to 19 with her KEVIN. She was treated with volume expansion utilizing a LR. Renal function improved from max on 12/19/2022 at 3.13-2.49 at the time of discharge. Baseline serum creatinine appears to be between 0.9 and 1. I discussed the case with Dr. Morris from nephrology and he felt comfortable discharging her home on 12/21/2022. We will continue to hold her ARB/HCTZ as well as her Celebrex at the time of discharge until reevaluated as an outpatient by nephrology. An appointment will be scheduled by Dr. Morris's office. I discussed the case with Dr. Rausch and he recommended continuing steroids with budesonide 9 mg daily and he would like to follow-up with her in the next 2 weeks. She is to call make an appointment within 24 hours of discharge. She is also to follow-up with her primary care physician within the next week. Blood pressure was normalized but not elevated at the time of discharge so we did not add anything in substitution for her ARB/HCTZ and this will be reevaluated by nephrology at the time of follow-up appointment. Hemoglobin was stable throughout entire stay and was greater than 12 at the time of discharge. GI did state that we could restart her Eliquis at the time of discharge. She was discharged home in stable condition on 12/21/2022. Discharge diagnoses: Lower GI bleed secondary to diffuse colitis KEVIN secondary to ATN Lower extremity DVT-history of HPL HTN RA Restless leg syndrome Obesity Physical Exam Const alert, oriented x3, no apparent distress, average body habitus and well nourished Constitutional Narrative: Pleasant elderly, morbidly obese white female sitting up on the edge of the bed General Appearance: cooperative, comfortable, well kempt and well developed Orientation / Consciousness: awake, oriented to person, oriented to place and oriented to time Exam Limitations: no limitations Nutritional Appearance: morbidly obese HEENT normocephalic, head/scalp atraumatic, hearing grossly normal bilaterally and moist oral mucous membranes HEENT Narrative: Mallampati 2-3, no thrush Eyes PERRL, EOMs intact bilaterally and conjunctivae normal Eyes Narrative: No scleral icterus Neck no lymphadenopathy, supple and no JVD Resp normal respiratory effort, no retractions, no use of accessory muscles and clear to auscultation bilaterally Auscultation: Negative for rales, rhonchi or wheezes Cardio regular rate, regular rhythm, S1 normal heart sound, S2 normal heart sound, no murmurs, no rub, no gallops and no clicks GI normal to inspection, nondistended, normoactive bowel sounds and soft to palpation Extremity no clubbing, cyanosis or edema Extremity Narrative: 2+ pedal pulses Skin no rashes or lesions noted, no wounds, skin turgor normal and no jaundice Neuro oriented x3, CN's II-XII intact bilaterally and moves all extremities Speech: speech normal Psych affect normal Psych Narrative: Very pleasant, appropriately interactive Weight / BMI Weight Weight: 94.6 kg Body Mass Index (BMI) 40.9 ABG / Lab / Microbiology Data Result Diagrams: 12/19/22 06:00 12/21/22 05:10 Laboratory: Laboratory Results - last 24 hr 12/21/22 05:10: Sodium 142, Potassium 3.5, Chloride 110 H, Carbon Dioxide 23.0, Anion Gap 9, BUN 58 H, Creatinine 2.49 H, Estim Creat Clear Calc 28.71, Est GFR (MDRD) Af Amer 24 L, Est GFR (MDRD) Non-Af 20 L, BUN/Creatinine Ratio 23.3 H, Glucose 136 H, Calcium 8.5 12/21/22 06:45: Urine Color Yellow, Urine Clarity Clear, Urine pH 5.0, Ur Specific [place] 1.015, Urine Protein Negative, Urine Glucose (UA) Normal, Urine Ketones Negative, Urine Occult Blood Negative, Urine Nitrite Negative, Urine Bilirubin Negative, Urine Urobilinogen Normal, Ur Leukocyte Esterase 100 H, Urine RBC 0 SEEN, Urine WBC 10-25 SEEN, Ur Squamous Epith Cells 0-5 SEEN, Ur Renal Epithelial Cell 0-5 SEEN, Urine Bacteria RARE, Urine Mucus 0 SEEN Microbiology: Microbiology 12/17/22 02:10 Stool C. difficile DNA Amplification - Final 12/17/22 02:10 Stool Enteric Bacteriology - Final 12/16/22 21:08 Stool Stool Occult Blood (BEKA) - Final Occult Blood Positive D/C Instructions Discharge Diet: Low fat / Low cholesterol Discharge Activity: Return to Normal Activity Meaningful Use Info Meaningful Use Diagnoses (Choose all that apply): None applicable Discharge Plan Admission Admit Date/Time: 12/18/22 11:43 Primary Reason for Your Visit: Lower GI bleed Attending Provider: Jeannie Gipson Primary Care Provider: Adenike Mcghee Consulting Providers: Promise Vaughn ; Nasrin Lambert ; Asher Gonzalez Discharge Orders/Prescriptions Prescriptions: New budesonide 3 mg capsule,delayed,extend.release 9 mg PO DAILY Qty: 90 0RF Continued ropinirole 1 mg tablet 1 mg PO QHS Label Comments: TAKE 1 TABLET BY MOUTHTEVERY NIGHT AT BEDTIME gabapentin 100 mg capsule 100 mg PO BID Label Comments: TAKE 1 CAPSULE BY MOUTH 2nTIMES A DAYt rosuvastatin 10 mg tablet 10 mg PO QHS Label Comments: TAKE 1 TABLET BY MOUTHCONCE DAILYE Eliquis 5 mg Tablet 5 mg PO BID Held telmisartan-hydrochlorothiazid 80-25 mg tablet 1 tab PO DAILY Hold Instructions: Until otherwise instructed Label Comments: TAKE 1 TABLET BY MOUTH EVERY DAY Discontinued celecoxib 200 mg capsule 200 mg PO DAILY Label Comments: TAKE 1 CAPSULE BY MOUTHIONCE DAILY IF NEEDED FOR PAIN Referrals / Follow Up: Nasrin Lambert MD [Med Staff - Consulting] - See Referral Note (per Dr. Morris recommendations) Adenike Mcghee, DO [Primary Care Provider] - Within 1 Week FriendRoberto DO [Med Staff - Active Staff] - Within 2 Weeks (Call for appt within next 24 hrs to be seen) Disposition Disposition (needs filled in before D/C Order can be placed): Home, Self Care Charges/Coding Visit Charges Inpatient E&M: 69659 Disch Hosp >30min
--- NOTE | 2022-12-21 12:41 | CASEMGMT ---
Social Work As per admitting RN, pt has LW/POA, unable to bring in, Joan Coronado is POA. CAIN Reese
== END 2022-12-21 16:20 | disposition home or self-care (01) | DRG 385 ==
LOC: ED 21:15 → MS3 23:54
PROVIDERS: Internal Medicine; Internal Medicine Gastroenterology; Admitting Provider Family Medicine; Emergency Provider Emergency Medicine; PCP Family Medicine; Visit Provider Internal Medicine
PROC: 0DJD8ZZ Inspection of Lower Intestinal Tract, Via Natural or Artificial Opening Endoscopic (ICD-10-PCS; CPT 45378; principal; 2022-12-18 06:25)
DX: K51.911 Ulcerative colitis, unspecified with rectal bleeding (principal); N17.0 Acute kidney failure with tubular necrosis; E87.1 Hypo-osmolality and hyponatremia; E87.21 Acute metabolic acidosis; N18.30 Chronic kidney disease, stage 3 unspecified; M06.9 Rheumatoid arthritis, unspecified; K57.30 Diverticulosis of large intestine without perforation or abscess without bleeding; E87.6 Hypokalemia; E78.5 Hyperlipidemia, unspecified; G25.81 Restless legs syndrome; K21.9 Gastro-esophageal reflux disease without esophagitis; I12.9 Hypertensive chronic kidney disease with stage 1 through stage 4 chronic kidney disease, or unspecified chronic kidney disease; Z86.718 Personal history of other venous thrombosis and embolism; Z79.01 Long term (current) use of anticoagulants; E66.9 Obesity, unspecified; Z79.899 Other long term (current) drug therapy; Z67.41 Type O blood, Rh negative
CPT/HCPCS: 36415; 80048; 80053; 81001; 82274; 83735; 84100; 85014; 85018; 85025; 85730; 87077; 87086; 87088; 87186; 87493; 87506; 88305; 88313; 93005; 94668; 99252; 99284; J7030; J7050; J7120; A4216; G0463; J2405

== ENCOUNTER → 2022-12-24 | Outpatient (CLI) | payer MEDICARE, SELFPAY ==
[2022-12-24 15:31] LABS: Magnesium 1.6 mg/dL (1.6-2.6)
[2022-12-24 15:47] LABS: Vitamin B12 241 pg/mL (211-911)
== END | disposition home or self-care (01) ==
LOC: MTLAB 12:37
PROVIDERS: PCP Family Medicine; Referring Provider Family Medicine; Visit Provider Family Medicine
DX: E53.9 Vitamin B deficiency, unspecified (principal); R25.2 Cramp and spasm
CPT/HCPCS: 36415; 82607; 83735

== ENCOUNTER → 2023-01-25 | Outpatient (CLI) | payer MEDICARE, SELFPAY ==
[2023-01-25 13:14] LABS: Vitamin B12 748 pg/mL (211-911)
[2023-01-25 13:35] LABS: Anion Gap 8 (5-15); BUN 17 mg/dL (7-18); BUN/Creat Ratio 23.7 RATIO (10-20); Calcium,Total 9.5 mg/dL (8.5-10.1); Chloride 108 mmol/L (98-107); Creatinine, Serum 0.72 mg/dL (0.55-1.02); EST Glomerular Filtration Rate 84 mL/min (>60); Est Glom Filt Rate - Afr Amer 102 mL/min (>60); Glucose 99 mg/dL (74-106); Potassium 3.4 mmol/L (3.5-5.1); Sodium Level 142 mmol/L (136-145)
== END | disposition home or self-care (01) ==
LOC: MFPLAB 10:35
PROVIDERS: PCP Family Medicine; Visit Provider Family Medicine
DX: R94.4 Abnormal results of kidney function studies (principal)
CPT/HCPCS: 36415; 80048; 82607

== ENCOUNTER → 2023-02-26 | Outpatient (CLI) | payer MEDICARE, SELFPAY ==
--- NOTE | 2023-02-26 13:40 | MRI_ITS ---
STUDY: MRI BRAIN WITH AND WITHOUT CONTRAST REASON FOR EXAM: Female, 77 years old. Progressive memory loss, speech difficulties, confusion, headache TECHNIQUE: Standardized multiplanar fat and water weighted pulse sequences were obtained. IV 19 ml CLARISCAN was administered for the contrast portion of the examination. COMPARISON: None. FINDINGS: Moderate central atrophy and periventricular white matter ischemic changes without mass effect or restricted diffusion. . Asymmetric prominence of the lateral ventricles with respect to the cortical sulci possibly representing early changes of NPH Normal bilateral basal ganglia. Normal thalami. There is no extra-axial fluid accumulation. Normal flow voids within the major intracranial circulation suggesting patency by spin echo criteria. Normal venous enhancement. There is no enhancing intra-axial or extra-axial abnormality. Partial empty sella deformity likely of no significance. Normal, infundibular stalk, optic chiasm and hypothalamus. Normal tectal plate and pineal gland. 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 Normal cerebellum. Normal basal cisterns. Normal bilateral temporal bones. Normal bilateral internal auditory canals. No demonstrated orbital abnormality, within the constraints of a routine brain study. Normal visualized paranasal sinuses. Normal calvarium and skull base. Normal visualized soft tissue structures. Normal visualized upper cervical spine. MRI/Brain W/WO Contrast IMPRESSION: Atrophy and moderate periventricular white matter ischemic change without evidence for acute infarct.. 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 Electronically Signed: Heber Saleh MD at 19:06 EDT ,
== END | disposition home or self-care (01) ==
PROVIDERS: PCP Family Medicine; Referring Provider Family Medicine; Visit Provider Family Medicine
DX: R41.3 Other amnesia (principal)
CPT/HCPCS: 70553; A9575

== ENCOUNTER 2023-03-01 06:05 | Emergency (ER) | payer MEDICARE, SELFPAY ==
[2023-03-01 06:08] VITALS: BP 159/79; PULSE 75; RESP 16; TEMP 36.4; O2SAT 94; BMI 37.6
[2023-03-01 06:10] VITALS: BP 159/79; PULSE 74; RESP 16; TEMP 36.4; O2SAT 94
--- NOTE | 2023-03-01 06:49 | RAD_ITS ---
INDICATION: ? Osteomyelitis. History of lower extremity redness for long duration. EXAMINATION/TECHNIQUE: X-RAY - LEFT XR Tibia/Fibula 2 Views COMPARISON: Concurrent radiographs left ankle. FINDINGS: SOFT TISSUES: Generalized soft tissue swelling and edema. Punctate pretibial calcification likely benign phlebolith. BONES/JOINTS: No acute fracture or subluxation. Adequate alignment. Severe tibiotalar joint space narrowing with subchondral eburnation and marginal osteophytosis. Mild femorotibial degenerative joint space narrowing and osteophytosis. No focal osseous destruction demonstrated. RAD/Tibia & Fibula 2 Views IMPRESSION: Generalized soft tissue swelling and edema with mild osteoarthrosis left knee and severe osteoarthrosis left ankle. Electronically Signed: Gene Garcia MD at 7:47 EDT ,
--- NOTE | 2023-03-01 06:49 | RAD_ITS ---
INDICATION: ? Osteomyelitis. History of lower extremity redness for long duration. EXAMINATION/TECHNIQUE: X-RAY - LEFT XR Foot Min 3 Views COMPARISON: None. FINDINGS: SOFT TISSUES: Generalized soft tissue swelling and edema. No radiopaque foreign body detected. BONES/JOINTS: No acute fracture or subluxation. Adequate alignment. Severe tibiotalar joint space narrowing with subchondral eburnation and marginal osteophytosis. Mild tarsometatarsal degenerative joint space narrowing and osteophytosis. Small posterior and plantar calcaneal enthesophytes. RAD/Foot min 3 Views IMPRESSION: Generalized soft tissue swelling and edema with mild osteoarthrosis midfoot and severe osteoarthrosis and ankle. Electronically Signed: Gene Garcia MD at 7:45 EDT ,
[2023-03-01 07:12] LABS: Absolute Lymphocyte Count 2.38 X10^3/uL (0.83-4.51); Absolute Neutrophil Count 6.8 X10^3/uL (2.0-7.7); Basophil# 0.06 X10^3/uL; Basophil% 0.6 % (0-1); Eosinophil# 0.21 X10^3/uL; Hematocrit 41.5 % (37-47); Hemoglobin 13.1 g/dL (12.0-15.0); Lymphocyte # 2.38 X10^3/ul (0.83-4.51); Mean Corp Hgb Conc 31.6 g/dL (32-36); Mean Corpuscular Hgb 31.3 pg (27.0-32.0); Mean Corpuscular Volume 99.3 fL (81-99); Monocyte% 7.7 % (0-10); NRBC Flagged by Analyzer 0 % (0-5); Neutrophil # 6.84 X10^3/uL (2.7-7.7); Neutrophil % 66.2 % (47-70); Platelet Count 246 K/mm3 (150-450); RBC Distribution Width CV 13.2 % (11.6-14.6); RBC Distribution Width SD 48.6 fl (35.1-43.9); Red Blood Count 4.18 M/mm3 (4.2-5.4); White Blood Count 10.3 K/mm3 (4.4-11.0)
[2023-03-01 07:21] LABS: International Normalized Ratio 1.1; Prothrombin Time (Protime)PT. 14.5 SECONDS (11.7-14.9)
[2023-03-01 07:25] LABS: Anion Gap 4 (5-15); BUN 17 mg/dL (7-18); BUN/Creat Ratio 22.1 RATIO (10-20); Calcium,Total 9.5 mg/dL (8.5-10.1); Chloride 107 mmol/L (98-107); Creatinine, Serum 0.77 mg/dL (0.55-1.02); EST Glomerular Filtration Rate 78 mL/min (>60); Est Glom Filt Rate - Afr Amer 94 mL/min (>60); Estimated Creatinine Clearance 37.85 ml/min; Glucose 112 mg/dL (74-106); Potassium 3.3 mmol/L (3.5-5.1); Sodium Level 142 mmol/L (136-145)
[2023-03-01 07:32] LABS: Erythrocyte Sedimentation Rate 29 mm/hr (0-30)
[2023-03-01 07:40] LABS: Lactic Acid 1.3 mmol/L (0.4-1.9)
[2023-03-01 07:44] LABS: BNP,B-Type NATRIURETIC PEPTIDE 17.7 pg/mL (0-100)
--- NOTE | 2023-03-01 08:20 | VDLE_ITS ---
Reason For Study: LLE swelling Procedure LEFT This is a venous duplex using B-mode, color GSV is normal. flow and spectral Doppler. CFV is compressible, spontaneous, phasic, Exam performed portable in ED. competent, and demonstrates normal The study was technically difficult. augmentation. Due to PT being unable to keep leg still for FV is compressible, spontaneous, phasic, exam. competent and demonstrates normal A preliminary report was called and/or faxed augmentation. to ED @ 9 am. POP V is compressible, spontaneous, and phasic. T/P Trunk is compressible. PTV is compressible. LT PerV is compressible. NON-VASCULAR structure noted in the left pop fossa space measuring 1.7 cm x 1.35cm. VL/Venous Duplex US, Unilateral Interpretation Summary There is no evidence of left lower extremity deep vein thrombosis. Left great s aphenous vein appears patent and compressible segmentally. Left popliteal fossa 1.35 x 1.7 non-vascul ar structure. This might represent a Garcia's cyst but clinical correlation would be appropriate. The examination with this noted to be technically difficult due to the patient' s inability to remain still for the examination. Ordering Physician: Greg Rose Referring Physician: Adenike Mcghee Performed By: Carrol Beckham, ROALNDO, RVT
--- NOTE | 2023-03-01 08:21 | EDS_ITS ---
HPI History of Present Illness Chief Complaint: Lower Extremity Injury Informant: patient and family Narrative Narrative: Patient is a 77-year-old female with past medical history of KEVIN hypertension and hyperlipidemia as well as previous DVT currently on Eliquis. Patient states that roughly 2 weeks ago she had fallen and developed a few small scrapes to her left miller. She states she did not think much of this but since that time she has had increasing redness and swelling. She went to an urgent care and was started on Keflex. She states that she has been on it now for approximately 3 days but during that time she developed worsening redness and swelling extending from the mid miller down to the toes. She denies any repeat trauma and she denies any fevers or chills associated with this but with the worsening redness comes in for evaluation [facility] Medical History Chronic neuropathic pain DVT (deep venous thrombosis) HLD (hyperlipidemia) HTN (hypertension) Hypertension Rheumatoid arthritis RLS (restless legs syndrome) Home Medications apixaban 5 mg tablet (Eliquis) 5 mg PO BID DVT 12/17/22 [History Last Taken 12/16/22] gabapentin 100 mg capsule 100 mg PO BID neuropathy 12/17/22 [History Last Taken 12/16/22] ropinirole 1 mg tablet 1 mg PO QHS restless legs 12/17/22 [History Last Taken 12/15/22] rosuvastatin 10 mg tablet 10 mg PO QHS cholesterol 12/17/22 [History Last Taken 12/15/22] telmisartan 80 mg-hydrochlorothiazide 25 mg tablet 1 tab PO DAILY HTN 12/17/22 [History Last Taken 12/16/22] budesonide 3 mg capsule,delayed,extended release 9 mg (3 x 3 mg) PO DAILY #90 ea 01/21/23 [Rx Last Taken Unknown] clindamycin HCl 300 mg capsule (Cleocin HCl) 300 mg PO 4X/DAY 10 days #40 CAPSULES 03/01/23 [Rx Last Taken Unknown] Allergy/AdvReac Type Severity Reaction Status Date / Time No Known Allergies Allergy Verified 03/01/23 06:08 Family History Mother Pancreatic cancer Father Heart disease Hypertension Surgical History H/O: hysterectomy History of ankle surgery History of tonsillectomy and adenoidectomy Social History household members: none Smoking Status: Never smoker alcohol intake: never substance use type: does not use ROS ROS ED Constitutional Constitutional ED: Denies chills or fever(s) ENT ENT ED: Denies sore throat Cardiovascular Cardiovascular: Denies chest pain Respiratory/Chest Respiratory/Chest: Denies cough or dyspnea Gastrointestinal Gastrointestinal: Denies abdominal pain, diarrhea, nausea or vomiting Genitourinary Genitourinary ED: Denies dysuria Musculoskeletal Musculoskeletal: Reports other Details: Positive left lower leg pain Integumentary Reports other Details: Pat left lower leg redness and swelling ; Denies rash Neurologic Neurologic: Denies headache(s) Hematologic/Lymphatic Hematologic/Lymphatic: Reports easy bleeding and easy bruising EXAM Physical Exam Const Vital Signs: 03/01/23 06:08 03/01/23 06:10 Temperature 97.5 F L 97.6 F L Temperature Source Temporal Temporal Pulse Rate 75 74 Respiratory Rate 16 16 Blood Pressure 159/79 H 159/79 H Blood Pressure Mean 105 105 Pulse Ox 94 94 Positive well nourished and well developed General Appearance ED: well developed HEENT HEENT Narrative: Normocephalic atraumatic Eyes PERRL and EOMs intact bilaterally Neck supple and no JVD Resp normal respiratory effort and clear to auscultation bilaterally Cardio regular rate and regular rhythm Rate: other Other Details: Radial pulses are plus 2 out of 4 bilaterally are equal and symmetric Extremity Extremity Narrative: Left lower extremity is neurovascular intact. Patient has soft tissue swelling of the left leg with +2-3 pitting edema that is roughly twice the size of the right. There is diffuse pain on palpation but overall negative Homans' sign. Patient has asymmetric erythema mixed with mild ecchymosis extending from the left mid miller down to the toes that is circumferential in nature. There is asymmetric warmth associated with this. No lymphangitic streaking noted or abscess formation. Neuro oriented x3 and CN's II-XII intact bilaterally Sensorium / Orientation: alert Motor Exam: strength 5/5 throughout Psych mental status grossly normal Skin Skin Narrative: Soft tissue changes to the left lower leg as documented above MDM MDM MDM Narrative Medical decision making narrative: Patient presented to the ER mildly hypertensive but has a past medical history of this and otherwise. She had worsening redness and swelling to the left lower leg despite being on Keflex. Exam shows circumferential erythema from the mid miller down that has areas of ecchymosis consistent with potential underlying hematoma but also cellulitis. Patient is on Eliquis because of previous DVT but with the recent trauma to the lower leg there is also concern that the asy mmetric swelling could be related to a recurrent DVT. Therefore venous duplex will be ordered. However she has no chest pain she is not tachypneic there is put no pleuritic chest pain and my concern for PE is low. Moreover patient is currently on proper anticoagulation with Eliquis. Patient blood work is obtained secondary to concern for cellulitis versus sepsis versus osteomyelitis. X-rays revealed no bony derangement to suggest osteomyelitis. Patient's white count and lactic acid and ESR are normal also going against systemic infection. CRP is slightly bumped at 54 which could correlate with potential soft tissue skin infection. Secondary to this patient was given 15 mg/kg of vancomycin. We discussed potential admission based on the worsening redness and swelling of the left lower leg. However as the patient has stable vitals with no elevation to her white count and ESR or lactic acid she wishes to treat this as an outpatient. Patient will be advised to stop the Keflex she will be changed to clindamycin and she agrees to return to the hospital if she develops a fever or the redness begins to track up her leg. This plan of care was discussed with the patient and family and both are agreeable to it History & Record Review Discussion w/independent historian: Patient and Family Lab Data Attestation: I reviewed the patient's lab results. Labs: Laboratory Results - last 24 hr 03/01/23 07:00 WBC 10.3 RBC 4.18 L Hgb 13.1 Hct 41.5 MCV 99.3 H MCH 31.3 MCHC 31.6 L RDW Std Deviation 48.6 H RDW Coeff of Chandan 13.2 Plt Count 246 MPV 10.0 Immature Gran % (Auto) 0.500 Neut % (Auto) 66.2 Lymph % (Auto) 23.0 [place] % (Auto) 7.7 Eos % (Auto) 2.0 Baso % (Auto) 0.6 Absolute Neuts (auto) 6.8 Absolute Lymphs (auto) 2.38 Nucleated RBC % 0 ESR 29 PT 14.5 INR 1.1 Sodium 142 Potassium 3.3 L Chloride 107 Carbon Dioxide 31.0 Anion Gap 4 L BUN 17 Creatinine 0.77 Estim Creat Clear Calc 37.85 Est GFR (MDRD) Af Amer 94 Est GFR (MDRD) Non-Af 78 BUN/Creatinine Ratio 22.1 H Glucose 112 H Lactic Acid 1.3 Calcium 9.5 C-React Prot Ext Range 54.80 H B-Natriuretic Peptide 17.7 Radiography Diagnostic Testing: Clinical Impression(s) from Imaging Studies Foot X-Ray 03/01/23 06:49 IMPRESSION: Generalized soft tissue swelling and edema with mild osteoarthrosis midfoot and severe osteoarthrosis and ankle. Electronically Signed: Gene Garcia MD at 7:45 EDT , Tibia/Fibula X-Ray 03/01/23 06:49 IMPRESSION: Generalized soft tissue swelling and edema with mild osteoarthrosis left knee and severe osteoarthrosis left ankle. Electronically Signed: Gene Garcia MD at 7:47 EDT , X-ray of the left tibia/fibula and foot reveal soft tissue swelling without acute fracture dislocation foreign body or signs of osteomyelitis Discharge Plan Triage Chief Complaint: Lower Extremity Injury ED Provider: Greg Rose Dx/Rx/DC Orders Clinical Impression: Cellulitis of left leg, Current use of termite control servicer anticoagulation, Hypertension Instructions: Cellulitis Dc Prescriptions: New clindamycin HCl [Cleocin HCl] 300 mg capsule 300 mg PO 4X/DAY 10 Days Qty: 40 0RF No Action ropinirole 1 mg tablet 1 mg PO QHS Patient Comments: TAKE 1 TABLET BY MOUTHTEVERY NIGHT AT BEDTIME gabapentin 100 mg capsule 100 mg PO BID Patient Comments: TAKE 1 CAPSULE BY MOUTH 2nTIMES A DAYt rosuvastatin 10 mg tablet 10 mg PO QHS Patient Comments: TAKE 1 TABLET BY MOUTHCONCE DAILYE telmisartan-hydrochlorothiazid 80-25 mg tablet 1 tab PO DAILY Hold Instructions: Until otherwise instructed Patient Comments: TAKE 1 TABLET BY MOUTH EVERY DAY Eliquis 5 mg Tablet 5 mg PO BID budesonide 3 mg capsule,delayed,extend.release 9 mg PO DAILY Qty: 90 3RF Primary Care Provider: Adenike Mcghee Referrals: Adenike Mcghee, DO [Primary Care Provider] - Activity Restrictions/Additional Instructions: Please stop the Keflex/cephalexin you are given at the urgent care. Begin taking clindamycin for improved infection control. If you develop a fever over 100.4 or the redness begins to extend up toward your knee please return for repeat evaluation. Disposition Disposition: Home, Self Care
== END 2023-03-01 10:18 | disposition home or self-care (01) ==
PROVIDERS: Emergency Provider Emergency Medicine; PCP Family Medicine; Visit Provider Emergency Medicine
DX: L03.116 Cellulitis of left lower limb (principal); I10 Essential (primary) hypertension; Z79.899 Other long term (current) drug therapy; Z79.01 Long term (current) use of anticoagulants; Z86.718 Personal history of other venous thrombosis and embolism
CPT/HCPCS: 73590; 73630; 80048; 83605; 83880; 85025; 85610; 85652; 86140; 87040; 93971; 96365; 96366; 99282; J7040; A4216

== ENCOUNTER 2023-03-15 03:38 | Emergency (ER) | payer MEDICARE, SELFPAY ==
[2023-03-15 03:39] VITALS: BP 195/88; PULSE 63; RESP 15; TEMP 36.7; O2SAT 93; BMI 38.6
--- NOTE | 2023-03-15 04:24 | RAD_ITS ---
INDICATION: pain EXAMINATION/TECHNIQUE: X-RAY - XR Spine Lumbar 2 or 3 Views COMPARISON: No comparison. FINDINGS: 3 views of the lumbar spine. BONES: L1 superior endplate compression deformity of uncertain chronicity. Thoracolumbar focal scoliosis. No concerning bony lesion or abnormal sclerosis to suggest lesion. DISCS/JOINTS: Moderate multilevel degenerative disc disease. SOFT TISSUES: Unremarkable. RAD/Lumbar Spine 2 or 3 Views IMPRESSION: L1 superior endplate compression deformity of uncertain chronicity. If there is persistent clinical concern for acute spine fracture in this trauma patient, recommend dedicated lumbar spine CT. Electronically Signed: Bill Alves MD at 5:28 EDT ,
--- NOTE | 2023-03-15 04:24 | RAD_ITS ---
INDICATION: pain EXAMINATION/TECHNIQUE: X-RAY - RIGHT XR Hip Unilateral with Pelvis when performed; 2-3 Views COMPARISON: None. FINDINGS: Single frontal view of the pelvis. 2 views of the right hip. BONES: Normal anatomic alignment without evidence of fracture or subluxation. No concerning bony lesion or abnormal sclerosis to suggest lesion. JOINTS: Moderate lower lumbar and parasymphyseal degenerative change. SOFT TISSUES: Unremarkable. RAD/HIP, UNI W/ Pelvis 2-3 Views IMPRESSION: No acute osseous abnormality of the pelvis or right hip. Electronically Signed: Bill Alves MD at 5:26 EDT ,
[2023-03-15] MEDS: Ondansetron ODT 4 MG Tablet PO (04:52)
[2023-03-15] MEDS: Morphine 4 MG/ML Syringe 6 MG IM (04:52)
--- NOTE | 2023-03-15 05:45 | EDS_ITS ---
HPI History of Present Illness Chief Complaint: Fall Informant: patient and family Narrative Narrative: Patient is a 77-year-old female with past medical history of hypertension hyperlipidemia DVT currently on Eliquis and history of back pain. Patient states that she was up to go to the bathroom and was walking through the house with her cane. She states the cane caught the edge of the couch and caused her to lose her balance and fall to the ground. She denies striking her head or any loss of consciousness. She states that occurred roughly 1 hour prior to arrival. She states she was having difficulty getting up secondary to the fall and her recurrent pain. She states however now there is increased pain along the right hip and low back region. She denies any loss of bowel or bladder control or IV drug use. However with the increased pain status post fall she is concerned for injury and therefore comes in for evaluation [facility] Medical History Chronic neuropathic pain DVT (deep venous thrombosis) HLD (hyperlipidemia) HTN (hypertension) Hypertension Rheumatoid arthritis RLS (restless legs syndrome) Home Medications apixaban 5 mg tablet (Eliquis) 5 mg PO BID DVT 12/17/22 [History Last Taken 12/16/22] gabapentin 100 mg capsule 100 mg PO BID neuropathy 12/17/22 [History Last Taken 12/16/22] ropinirole 1 mg tablet 1 mg PO QHS restless legs 12/17/22 [History Last Taken 12/15/22] rosuvastatin 10 mg tablet 10 mg PO QHS cholesterol 12/17/22 [History Last Taken 12/15/22] telmisartan 80 mg-hydrochlorothiazide 25 mg tablet 1 tab PO DAILY HTN 12/17/22 [History Last Taken 12/16/22] budesonide 3 mg capsule,delayed,extended release 9 mg (3 x 3 mg) PO DAILY #90 ea 01/21/23 [Rx Last Taken Unknown] clindamycin HCl 300 mg capsule (Cleocin HCl) 300 mg PO 4X/DAY 10 days #40 CAPSULES 03/01/23 [Rx Last Taken Unknown] ondansetron 4 mg disintegrating tablet 4 mg PO TID PRN nausea and vomiting #21 tabs 03/15/23 [Rx Last Taken Unknown] oxycodone-acetaminophen 5 mg-325 mg tablet (Endocet) 1 tab PO Q6H PRN pain 5 days #20 tabs 03/15/23 [Rx Last Taken Unknown] Allergy/AdvReac Type Severity Reaction Status Date / Time No Known Allergies Allergy Verified 03/15/23 03:48 Family History Mother Pancreatic cancer Father Heart disease Hypertension Surgical History H/O: hysterectomy History of ankle surgery History of tonsillectomy and adenoidectomy Social History household members: none Smoking Status: Never smoker alcohol intake: never substance use type: does not use ROS ROS ED Constitutional Constitutional ED: Denies chills or fever(s) Eyes Eyes: Denies change in vision ENT ENT ED: Denies sore throat Cardiovascular Cardiovascular: Denies chest pain Respiratory/Chest Respiratory/Chest: Denies cough or dyspnea Gastrointestinal Gastrointestinal: Denies abdominal pain, diarrhea, nausea or vomiting Genitourinary Genitourinary ED: Denies dysuria Musculoskeletal Musculoskeletal: Reports back pain and other Details: Positive right hip pain Integumentary Denies Abrasions or rash Neurologic Neurologic: Denies headache(s) Hematologic/Lymphatic Hematologic/Lymphatic: Reports easy bleeding and easy bruising EXAM Physical Exam Const Vital Signs: 03/15/23 03:39 03/15/23 03:46 Temperature 98.1 F Temperature Source Temporal Pulse Rate 63 Respiratory Rate 15 Respiratory Effort Non-Labored Blood Pressure 195/88 H Blood Pressure Mean 123 Pulse Ox 93 Oxygen Delivery Method Room Air Room Air Positive well nourished, well developed and obese General Appearance ED: well developed Nutritional Appearance: obese HEENT HEENT Narrative: Normocephalic atraumatic No signs of depressed or basilar skull fracture Eyes PERRL and EOMs intact bilaterally Neck supple Neck Narrative: No bony deformity or step-off of the cervical spine no midline pain with palpation Chest Wall palpation of chest normal Resp normal respiratory effort and clear to auscultation bilaterally Cardio regular rate and regular rhythm GI normal to inspection, nondistended, normoactive bowel sounds, non-tender, non- distended and no masses GI Narrative: No voluntary guarding or rigidity. No pulsatile mass or fluid wave. No overlying abrasions or ecchymosis noted Auscultation: normoactive bowel sounds Palpation: soft Back/Spine Back/Spine Narrative: No bony deformity or step-off of the thoracic or lumbar spine but there is midline pain on palpation of the upper lumbar region. No saddle anesthesia. Negative straight leg raise. No clonus or Babinski. Patellar reflexes are plus 1 out of 4 bilaterally. Extremity normal to inspection Extremity Narrative: Pelvis is stable there is no shortening or external rotation of either lower extremity. Patient does have pain with palpation over top of the right greater trochanter however. There is increased pain with active and passive range of motion. Remainder of the exam is normal Neuro oriented x3, CN's II-XII intact bilaterally and no sensory deficits noted Sensorium / Orientation: alert Psych mental status grossly normal Skin no rashes or lesions noted MDM MDM MDM Narrative Medical decision making narrative: Patient presented to the ER with report of mechanical fall so there was no need for cardiac or syncope work-up. Patient did not strike her head or have loss of consciousness but as she is on a blood thinner we did discuss the possibility of a rupture of a small bridging vessel and discussed CT scan of the brain. Patient does not have headache change in vision nausea or vomiting therefore does not want a CT performed at this time. Differential diagnosis includes right hip contusion versus pelvic rami fracture versus right intertrochanteric fracture versus lumbosacral strain versus compression fracture or spondy lolisthesis. The x-rays of the right hip revealed no acute findings but the x- rays of the lumbar spine questioned a compression deformity of L1. Patient is tender at this site and following the report of fall I do feel that clinically correlates. We discussed the possible CT scan that radiology recommended but she does not have any signs of neurovascular compromise or neuro claudication and there is no obvious signs of retropulsion on exam or x-ray either. Patient was able to ambulate with a walker and this time we will treat for pain and have her follow-up with orthopedic spine surgery on an outpatient basis History & Record Review Discussion w/independent historian: Patient and Family Radiography Diagnostic Testing: Clinical Impression(s) from Imaging Studies Hip/Pelvis X-Ray 03/15/23 04:24 IMPRESSION: No acute osseous abnormality of the pelvis or right hip. Electronically Signed: Bill Alves MD at 5:26 EDT , Lumbar Spine X-Ray 03/15/23 04:24 IMPRESSION: L1 superior endplate compression deformity of uncertain chronicity. If there is persistent clinical concern for acute spine fracture in this trauma patient, recommend dedicated lumbar spine CT. Electronically Signed: Bill Alves MD at 5:28 EDT , Discharge Plan Triage Chief Complaint: Fall ED Provider: Greg Rose Dx/Rx/DC Orders Clinical Impression: Closed compression fracture of lumbar vertebra, Current use of correction anti coagulation, Hypertension Instructions: Compression Fx Prescriptions: New oxycodone-acetaminophen [Endocet] 5-325 mg tablet 1 tab PO Q6H PRN (Reason: pain) 5 Days Qty: 20 0RF ondansetron 4 mg tablet,disintegrating 4 mg PO TID PRN (Reason: nausea and vomiting) Qty: 21 0RF No Action ropinirole 1 mg tablet 1 mg PO QHS Patient Comments: TAKE 1 TABLET BY MOUTHTEVERY NIGHT AT BEDTIME gabapentin 100 mg capsule 100 mg PO BID Patient Comments: TAKE 1 CAPSULE BY MOUTH 2nTIMES A DAYt rosuvastatin 10 mg tablet 10 mg PO QHS Patient Comments: TAKE 1 TABLET BY MOUTHCONCE DAILYE telmisartan-hydrochlorothiazid 80-25 mg tablet 1 tab PO DAILY Hold Instructions: Until otherwise instructed Patient Comments: TAKE 1 TABLET BY MOUTH EVERY DAY Eliquis 5 mg Tablet 5 mg PO BID clindamycin HCl [Cleocin HCl] 300 mg capsule 300 mg PO 4X/DAY 10 Days Qty: 40 0RF budesonide 3 mg capsule,delayed,extend.release 9 mg PO DAILY Qty: 90 3RF Primary Care Provider: Adenike Mcghee Referrals: Heber Zimmer DO [Med Staff - Active Staff] - Adenike Mcghee DO [Primary Care Provider] - Activity Restrictions/Additional Instructions: Please follow-up with the orthopedic surgeon Dr. Zimmer regarding the x-ray displaying changes consistent with an L1 grade 1 compression fracture. Take your pain medication as directed to help control your symptoms and return to the ER should you have any further concerns. Disposition Disposition: Home, Self Care Discharge Date/Time: 03/15/23 06:22
== END 2023-03-15 06:22 | disposition home or self-care (01) ==
PROVIDERS: Emergency Provider Emergency Medicine; PCP Family Medicine; Visit Provider Emergency Medicine
DX: S32.019A Unspecified fracture of first lumbar vertebra, initial encounter for closed fracture (principal); W01.0XXA Fall on same level from slipping, tripping and stumbling without subsequent striking against object, initial encounter; Y93.01 Activity, walking, marching and hiking; Y99.8 Other external cause status; Y92.019 Unspecified place in single-family (private) house as the place of occurrence of the external cause; I10 Essential (primary) hypertension; E78.5 Hyperlipidemia, unspecified; Z79.01 Long term (current) use of anticoagulants; Z79.899 Other long term (current) drug therapy; Z86.718 Personal history of other venous thrombosis and embolism
CPT/HCPCS: 72100; 73502; 96372; 99284

== ENCOUNTER → 2023-04-27 | Outpatient (CLI) | payer MEDICARE, SELFPAY ==
[2023-04-27 17:40] LABS: Absolute Lymphocyte Count 2.03 X10^3/uL (0.83-4.51); Absolute Neutrophil Count 10.7 X10^3/uL (2.0-7.7); Basophil# 0.07 X10^3/uL; Basophil% 0.5 % (0-1); Eosinophils% 0.7 % (0-5); Hematocrit 41.8 % (37-47); Hemoglobin 13.6 g/dL (12.0-15.0); Lymphocyte # 2.03 X10^3/ul (0.83-4.51); Lymphocyte % 14.8 % (19-41); Mean Corp Hgb Conc 32.5 g/dL (32-36); Mean Corpuscular Hgb 31.4 pg (27.0-32.0); Mean Corpuscular Volume 96.5 fL (81-99); Mean Platelet Vol. 10.5 fl (6.2-12.0); Monocyte# 0.74 X10^3/uL; Monocyte% 5.4 % (0-10); NRBC Flagged by Analyzer 0 % (0-5); Neutrophil # 10.74 X10^3/uL (2.7-7.7); Neutrophil % 78.1 % (47-70); Platelet Count 228 K/mm3 (150-450); RBC Distribution Width CV 13.1 % (11.6-14.6); Red Blood Count 4.33 M/mm3 (4.2-5.4); White Blood Count 13.8 K/mm3 (4.4-11.0)
[2023-04-27 18:31] LABS: AST(SGOT) 13 U/L (15-37); Alanine Aminotransfer ALT/SGPT 20 U/L (13-56); Albumin, Serum 3.3 g/dL (3.2-5.0); Alkaline Phosphatase 88 U/L (45-117); Anion Gap 5 (5-15); BUN 22 mg/dL (7-18); BUN/Creat Ratio 22.1 RATIO (10-20); Calcium,Total 9.8 mg/dL (8.5-10.1); Chloride 107 mmol/L (98-107); EST Glomerular Filtration Rate 57 mL/min (>60); Est Glom Filt Rate - Afr Amer 70 mL/min (>60); Globulin 3.4 g/dL (2.2-4.2); Glucose 130 mg/dL (74-106); Potassium 3.4 mmol/L (3.5-5.1); Protein, Total 6.7 g/dL (6.4-8.2); Sodium Level 141 mmol/L (136-145)
== END | disposition home or self-care (01) ==
LOC: MTLAB 16:51
PROVIDERS: PCP Family Medicine; Visit Provider Family Medicine
DX: Z01.812 Encounter for preprocedural laboratory examination (principal); E87.6 Hypokalemia
CPT/HCPCS: 36415; 80053; 85025

== ENCOUNTER → 2023-05-07 | Outpatient (CLI) | payer MEDICARE, SELFPAY ==
[2023-05-07 12:18] LABS: Absolute Lymphocyte Count 1.35 X10^3/uL (0.83-4.51); Absolute Neutrophil Count 11.7 X10^3/uL (2.0-7.7); Basophil# 0.05 X10^3/uL; Basophil% 0.4 % (0-1); Eosinophil# 0.08 X10^3/uL; Eosinophils% 0.6 % (0-5); Hematocrit 44.8 % (37-47); Hemoglobin 14.1 g/dL (12.0-15.0); Lymphocyte # 1.35 X10^3/ul (0.83-4.51); Lymphocyte % 9.6 % (19-41); Mean Corp Hgb Conc 31.5 g/dL (32-36); Mean Corpuscular Hgb 30.8 pg (27.0-32.0); Mean Corpuscular Volume 97.8 fL (81-99); Mean Platelet Vol. 10.5 fl (6.2-12.0); Monocyte# 0.76 X10^3/uL; Monocyte% 5.4 % (0-10); NRBC Flagged by Analyzer 0 % (0-5); Neutrophil # 11.71 X10^3/uL (2.7-7.7); Neutrophil % 83.6 % (47-70); Platelet Count 254 K/mm3 (150-450); RBC Distribution Width CV 13.2 % (11.6-14.6); RBC Distribution Width SD 47.3 fl (35.1-43.9); Red Blood Count 4.58 M/mm3 (4.2-5.4)
[2023-05-07 12:46] LABS: Anion Gap 3 (5-15); BUN 20 mg/dL (7-18); BUN/Creat Ratio 25.1 RATIO (10-20); Calcium,Total 9.5 mg/dL (8.5-10.1); Chloride 106 mmol/L (98-107); EST Glomerular Filtration Rate 74 mL/min (>60); Est Glom Filt Rate - Afr Amer 90 mL/min (>60); Glucose 175 mg/dL (74-106); Potassium 3.6 mmol/L (3.5-5.1); Sodium Level 138 mmol/L (136-145)
== END | disposition home or self-care (01) ==
PROVIDERS: PCP Family Medicine; Referring Provider Family Medicine; Visit Provider Family Medicine
DX: Z01.812 Encounter for preprocedural laboratory examination (principal); Z79.899 Other long term (current) drug therapy
CPT/HCPCS: 36415; 80048; 85025

== ENCOUNTER → 2023-05-25 | Outpatient (CLI) | payer MEDICARE, SELFPAY ==
--- NOTE | 2023-05-25 15:15 | BI_ITS ---
MAMMOGRAPHY - BILATERAL SCREENING REASON FOR EXAM: Female, 77 years old. Routine annual screening examination. PERTINENT HISTORY: Non-contributory. TECHNIQUE: Digital bilateral breast pepper (3D mammographic acquisition) in the CC and MLO projections. 2-D mediolateral oblique (MLO) and craniocaudad (CC) views of both breasts were obtained. CAD: Full Field Digital Mammography with Computer Added Detection was performed. COMPARISON: Comparison is made with prior examination May 27, 2021. FINDINGS: Breast Composition: There are scattered areas of fibroglandular density. There are no dominant masses or suspicious calcifications. No other significant abnormalities are identified. There has been no significant change since the prior study. BI/SCRN MAMM (CAD)W/PEPPER BILAT IMPRESSION: Stable bilateral screening mammogram. Yearly follow-up mammogram recommended. (A) ASSESSMENT CATEGORY: BIRADS Category 1: Negative. A letter regarding these results will be sent to the patient by the facility within 30 days. Approximately 10% of breast cancers are not detected by mammography. A normal mammogram should not delay biopsy of a clinically suspicious abnormality. [id number] Electronically Signed: Silverio Harrington MD at 8:19 EDT ,
--- NOTE | 2023-05-25 15:22 | BD_ITS ---
STUDY: DUAL ENERGY X-RAY ABSORPTIOMETRY / DXA REASON FOR EXAM: Female, 77 years old. 733.00OsteoporosisBONE DENSITY REASON FOR EXAM TECHNIQUE: Bone Mineral Density (BMD) measurements of lumbar spine and left hip were obtained. COMPARISON: None. FINDINGS: Lumbar Spine (L1-L4): g/cm2 (1.200) / T-score (1.4) / Z-score (3.9) Findings are suggestive of normal bone density with a low fracture risk. Left Femur Total: g/cm2 (0.782) / T-score (-1.3) / Z-score (0.6) Left Femoral Neck: g/cm2 (0.635) / T-score (-1.9) / Z-score (0.2) BD/Dexa Bone Density Study IMPRESSION: The patient is considered osteopenic as outlined below according to World Erik Organization (WHO) criteria with a moderate fracture risk. Reference Information: The T-score is the number of standard deviations above or below the standard which is normal for young adults at their peak bone mineral density. The World Health Organization (WHO) interprets the T-scores as follows: Above -1 Normal bone density Between -1 and -2.5 Osteopenia Equal to / or below -2.5 Osteoporosis As a practical clinical guideline, osteopenia may be graded as follows: Mild -1 through -1.5 Moderate -1.6 through -2.0 Severe -2.1 through -2.4 The Z-score is the number of standard deviations above or below age-matched controls. A Z-score of less than -1.5 would be considered abnormal. References: 1. NIH Osteoporosis and Related Bone Diseases www osteo.org 2. International Society for Clinical Densitometry www iscd.org 3. National Osteoporosis Foundation www nof.org Electronically Signed: Silverio Harrington MD at 12:29 EDT ,
== END | disposition home or self-care (01) ==
LOC: OPBD 15:14
PROVIDERS: PCP Family Medicine; Referring Provider Family Medicine; Visit Provider Family Medicine
DX: Z12.31 Encounter for screening mammogram for malignant neoplasm of breast (principal); Z13.820 Encounter for screening for osteoporosis; M81.0 Age-related osteoporosis without current pathological fracture
CPT/HCPCS: 77063; 77067; 77080

== ENCOUNTER → 2023-07-19 | Outpatient (CLI) | payer MEDICARE, SELFPAY ==
[2023-07-19 16:45] LABS: Anion Gap 9 (5-15); BUN 30 mg/dL (7-18); BUN/Creat Ratio 35.8 RATIO (10-20); Calcium,Total 9.5 mg/dL (8.5-10.1); Chloride 102 mmol/L (98-107); Creatinine, Serum 0.84 mg/dL (0.55-1.02); EST Glomerular Filtration Rate 70 mL/min (>60); Est Glom Filt Rate - Afr Amer 85 mL/min (>60); Glucose 133 mg/dL (74-106); Potassium 3.3 mmol/L (3.5-5.1); Sodium Level 141 mmol/L (136-145)
== END | disposition home or self-care (01) ==
PROVIDERS: PCP Family Medicine; Referring Provider Family Medicine; Visit Provider Family Medicine
DX: M79.89 Other specified soft tissue disorders (principal)
CPT/HCPCS: 36415; 80048

== ENCOUNTER 2023-07-26 09:36 | Outpatient (CLI) | payer MEDICARE, SELFPAY ==
[2023-07-26 12:07] LABS: Absolute Lymphocyte Count 3.46 X10^3/uL (0.83-4.51); Absolute Neutrophil Count 12.7 X10^3/uL (2.0-7.7); Basophil# 0.08 X10^3/uL; Basophil% 0.4 % (0-1); Eosinophil# 0.22 X10^3/uL; Eosinophils% 1.2 % (0-5); Hematocrit 43.6 % (37-47); Hemoglobin 13.8 g/dL (12.0-15.0); Lymphocyte # 3.46 X10^3/ul (0.83-4.51); Mean Corp Hgb Conc 31.7 g/dL (32-36); Mean Corpuscular Hgb 31.2 pg (27.0-32.0); Mean Corpuscular Volume 98.4 fL (81-99); Mean Platelet Vol. 10.4 fl (6.2-12.0); Monocyte# 1.61 X10^3/uL; Monocyte% 8.8 % (0-10); NRBC Flagged by Analyzer 0 % (0-5); Neutrophil # 12.73 X10^3/uL (2.7-7.7); Neutrophil % 69.9 % (47-70); POSITIVE DIFFERENTIAL YES; Platelet Count 318 K/mm3 (150-450); RBC Distribution Width CV 12.4 % (11.6-14.6); RBC Distribution Width SD 44.8 fl (35.1-43.9); Red Blood Count 4.43 M/mm3 (4.2-5.4); White Blood Count 18.2 K/mm3 (4.4-11.0)
[2023-07-26 12:15] LABS: Differential Indicated SCAN CRITERIA MET
[2023-07-26 12:27] LABS: Vitamin D,25 Hydroxy 48.2 ng/mL
[2023-07-26 12:41] LABS: ALB/GLOB Ratio 0.9 RATIO (0.9-2.4); AST(SGOT) 18 U/L (15-37); Alanine Aminotransfer ALT/SGPT 24 U/L (13-56); Albumin, Serum 3.4 g/dL (3.2-5.0); Alkaline Phosphatase 79 U/L (45-117); Anion Gap 10 (5-15); BUN 54 mg/dL (7-18); Calcium,Total 9.7 mg/dL (8.5-10.1); Chloride 97 mmol/L (98-107); Creatinine, Serum 1.15 mg/dL (0.55-1.02); EST Glomerular Filtration Rate 49 mL/min (>60); Est Glom Filt Rate - Afr Amer 59 mL/min (>60); Ferritin 312 ng/mL (8-252); Globulin 3.9 g/dL (2.2-4.2); Glucose 110 mg/dL (74-106); Magnesium 1.9 mg/dL (1.6-2.6); Potassium 3.4 mmol/L (3.5-5.1); Protein, Total 7.3 g/dL (6.4-8.2); Sodium Level 136 mmol/L (136-145); Thyroid Stim Hormone (TSH) 1.81 uIU/mL (0.358-3.74)
[2023-07-26 12:45] LABS: Differential Comment SCANNED
[2023-07-27 12:49] LABS: Pathologist Review Reviewed
== END 2023-07-26 23:59 | disposition home or self-care (01) ==
LOC: MFPLAB 09:36
PROVIDERS: PCP Family Medicine; Visit Provider Family Medicine
DX: R53.83 Other fatigue (principal); I73.9 Peripheral vascular disease, unspecified
CPT/HCPCS: 36415; 80053; 82306; 82728; 83735; 84443; 85025

== ENCOUNTER → 2023-08-03 | Outpatient (CLI) | payer MEDICARE, SELFPAY ==
[2023-08-03 17:45] LABS: Absolute Neutrophil Count 14.6 X10^3/uL (2.0-7.7); Basophil# 0.07 X10^3/uL; Basophil% 0.4 % (0-1); Eosinophil# 0.16 X10^3/uL; Eosinophils% 0.9 % (0-5); Hematocrit 40.2 % (37-47); Hemoglobin 12.9 g/dL (12.0-15.0); Lymphocyte % 11.9 % (19-41); Mean Corp Hgb Conc 32.1 g/dL (32-36); Mean Corpuscular Hgb 31.3 pg (27.0-32.0); Mean Corpuscular Volume 97.6 fL (81-99); Mean Platelet Vol. 10.6 fl (6.2-12.0); Monocyte# 1.35 X10^3/uL; Monocyte% 7.3 % (0-10); NRBC Flagged by Analyzer 0 % (0-5); Neutrophil # 14.58 X10^3/uL (2.7-7.7); Neutrophil % 78.6 % (47-70); Platelet Count 273 K/mm3 (150-450); RBC Distribution Width CV 12.1 % (11.6-14.6); RBC Distribution Width SD 43.2 fl (35.1-43.9); Red Blood Count 4.12 M/mm3 (4.2-5.4); White Blood Count 18.5 K/mm3 (4.4-11.0)
[2023-08-03 18:03] LABS: Anion Gap 11 (5-15); BUN 77 mg/dL (7-18); BUN/Creat Ratio 48.1 RATIO (10-20); Calcium,Total 9.9 mg/dL (8.5-10.1); Chloride 100 mmol/L (98-107); EST Glomerular Filtration Rate 33 mL/min (>60); Est Glom Filt Rate - Afr Amer 40 mL/min (>60); Glucose 106 mg/dL (74-106); Potassium 3.8 mmol/L (3.5-5.1); Sodium Level 138 mmol/L (136-145)
== END | disposition home or self-care (01) ==
LOC: MTLAB 15:36
PROVIDERS: PCP Family Medicine; Referring Provider Family Medicine; Visit Provider Family Medicine
DX: K92.1 Melena (principal); E87.6 Hypokalemia
CPT/HCPCS: 36415; 80048; 85025

== ENCOUNTER → 2023-08-19 | Outpatient (CLI) | payer MEDICARE, SELFPAY ==
[2023-08-19 15:12] LABS: Absolute Lymphocyte Count 1.99 X10^3/uL (0.83-4.51); Absolute Neutrophil Count 14.5 X10^3/uL (2.0-7.7); Basophil# 0.07 X10^3/uL; Basophil% 0.4 % (0-1); Eosinophil# 0.21 X10^3/uL; Eosinophils% 1.2 % (0-5); Hematocrit 41.2 % (37-47); Hemoglobin 13.3 g/dL (12.0-15.0); Lymphocyte # 1.99 X10^3/ul (0.83-4.51); Mean Corp Hgb Conc 32.3 g/dL (32-36); Mean Corpuscular Hgb 31.9 pg (27.0-32.0); Mean Corpuscular Volume 98.8 fL (81-99); Mean Platelet Vol. 9.8 fl (6.2-12.0); Monocyte% 6.6 % (0-10); NRBC Flagged by Analyzer 0 % (0-5); Neutrophil # 14.48 X10^3/uL (2.7-7.7); Neutrophil % 80.2 % (47-70); Platelet Count 259 K/mm3 (150-450); RBC Distribution Width CV 12.3 % (11.6-14.6); RBC Distribution Width SD 44.9 fl (35.1-43.9); Red Blood Count 4.17 M/mm3 (4.2-5.4); White Blood Count 18.1 K/mm3 (4.4-11.0)
[2023-08-19 15:33] LABS: ALB/GLOB Ratio 0.9 RATIO (0.9-2.4); AST(SGOT) 18 U/L (15-37); Alanine Aminotransfer ALT/SGPT 28 U/L (13-56); Albumin, Serum 3.4 g/dL (3.2-5.0); Alkaline Phosphatase 70 U/L (45-117); Anion Gap 8 (5-15); BUN 38 mg/dL (7-18); BUN/Creat Ratio 33.9 RATIO (10-20); Calcium,Total 9.5 mg/dL (8.5-10.1); Chloride 106 mmol/L (98-107); Creatinine, Serum 1.12 mg/dL (0.55-1.02); EST Glomerular Filtration Rate 50 mL/min (>60); Est Glom Filt Rate - Afr Amer 61 mL/min (>60); Globulin 3.6 g/dL (2.2-4.2); Glucose 129 mg/dL (74-106); Magnesium 2.3 mg/dL (1.6-2.6); Potassium 4.3 mmol/L (3.5-5.1); Sodium Level 140 mmol/L (136-145)
== END | disposition home or self-care (01) ==
LOC: MTLAB 13:03
PROVIDERS: PCP Family Medicine; Referring Provider Family Medicine; Visit Provider Family Medicine
DX: M79.89 Other specified soft tissue disorders (principal)
CPT/HCPCS: 36415; 80053; 83735; 85025

== ENCOUNTER 2023-08-20 09:00 | Outpatient (RCR) | payer MEDICARE, SELFPAY ==
--- NOTE | 2023-08-05 16:14 | HP.OTEVAL_ITS ---
Patient's Visit Information Visit Information Visit Information: IVANA HERNANDEZ is a 78 year old F, referred to Occupational Therapy by Adenike Mcghee DO, with a diagnosis of BLE lymphedema. Date of Evaluation: 08/05/23 Occupational Therapist: Chary Almaguer, CHOLO/Bony, CHT Subjective Subjective: This 78 year old female was seen for OT eval with dx of lymphedema- pts dtr with her today- both state she has had swelling in the past along with cellulitis - recently has had increase in edema in bilateral LE- water pills have helped but noticed increase swelling and seeping today. pt arrives with simran wraps on bilateral LE. Dtr is helping with wrapping when pt has difficulty. otherwise they both would like to know what they can do to decrease edema in her LE. Lymphedema (Circumferential Measure) Mid-foot: right 22.5cm left 22cm Ankle: right 33cm left 35cm Lower calf: right 35cm left 36cm Largest calf: right 47cm left 45 cm Below knee: right 46cm left 46 cm Lower Limb Functional Index Lower Extremity Functional Score: 14 Goals Goal: Patient will demonstrate adequate knowledge of self-bandaging by the end of the first week.: Yes Goal: Patient will demonstrate adequate knowledge of self-massage by the end of the second week.: Yes Goal: Patient will demonstrate adequate knowledge of skin care and precautions by the end of the first week.: Yes Goal: Patient will demonstrate adequate knowledge of therapeutic exercises by discharge.: Yes Goal: Patient will select an appropriate compression garment and demonstrate adequate knowledge of correct donning technique, care and wearing schedule by discharge.: Yes Goal: Patient will voice understanding of need to replace compression garment every four to six months by discharge.: Yes Rehabilitation General Assessment: Pt demo with stage 2 lymphedema of bilateral LE. Pt demo n eed for skilled OT services 2-4 visits to ensure pts understanding and HEP of lymphedema mtg. Today therapist ed. pt and pts family on compression devices ( velcro closure) to assist in decreasing limb size. Pt and pts family receptive as they could not get the compression socks on before. Pt was ed. on lymph stim ex, and to avoid falling asleep in her chair with her legs down and how sleeping her bed would be beneficial instead of her recliner. pt and pts family demo understanding and agree to POC. Rehabilitation Potential: Questionable Anticipated Interventions Anticipated Interventions: Education re assistive Equipment, Education re Diagnosis, Education re Life-long lymphedema Management, Education re Self-Bandaging Techniques, Education re Skin Care and Precautions, Education re Self Massage Techniques, Education re Correct Donning Tech,Care&Wearing Sched Comp Garments, Caregiver Training and Home Program Visit Plan Frequency: Every Other Week Duration: 4 Weeks TEXT: Thank you for the opportunity to evaluate your patient. For Medicare and Medicare HMO plans, please review the plan of care and approve it. It will need to be FAXED BACK to us at [phone] for Medicare purposes. Please let me know if there are questions or concerns regarding this plan of care. Physician Signature: Date:
--- NOTE | 2023-08-20 13:43 | ECHOCS_ITS ---
Reason For Study: Swelling of Limb Procedure This was a 2D Doppler, Color Flow transthoracic echocardiogram. The study was technically difficult. Contrast injection was performed. Exam performed in department. Left Ventricle Normal LV size. Mild concentric left ventricular hypertrophy. The left ventricular ejection fraction is 70 %. Stage 1 diastolic dysfunction. Left ventricular systolic function is hyperdynamic. Right Ventricle Normal right ventricle. Atria Normal left atrium. Right atrium is small. Recommend CT or cardiac MRI to rule out external compression. Bubble contrast study is negative for PFO/ASD. Mitral Valve Mild focal mitral valve calcification of the posterior leaflet. Trivial mitral valve insufficiency. Tricuspid Valve Trivial tricuspid valve insufficiency. Normal pulmonary artery pressure. Aortic Valve Trisinus/trileaflet aortic valve. Aortic sclerosis, no stenosis. Pulmonic Valve The pulmonic valve is not well visualized. Great Vessels Normal sized aortic root. Pericardium/Pleural No pericardial effusion. Medication 22 gauge I.V. with prn adaptor inserted into right arm. Diluted definity 3ml given slow IV push to enhance endocardial definition. Performed a rapid injection of agitated mix of 9 cc saline and 1cc air to assess for atrial septal defect. MMode/2D Measurements & Calculations LVIDd: 3.6 cm IVSd: 1.0 cm Ao root diam: 3.5 cm LVIDs: 1.8 cm LVPWd: 1.0 cm LA dimension: 3.5 cm RVDd: 3.0 cm FS: 48.9 % LAV(MOD-bp): 32.0 ml LVAd ap4: 27.5 cm2 SV(MOD-sp4): 60.4 ml LAV(MOD-bp) Indexed: 15.1 ml/m2 LVLd ap4: 7.9 cm LAV(MOD-sp2): 35.9 ml EDV(MOD-sp4): 78.1 ml LAV(MOD-sp4): 21.6 ml EDV(sp4-el): 81.5 ml LVAs ap4: 10.7 cm2 LVLs ap4: 5.3 cm ESV(MOD-sp4): 17.7 ml ESV(sp4-el): 18.3 ml EF(MOD-sp4): 77.3 % EF(sp4-el): 77.5 % SV(sp4-el): 63.1 ml LA A4 area: 10.5 cm2 RA A4 area: 9.2 cm2 TAPSE: 1.2 cm Time Measurements MV dec time: 0.33 sec Doppler Measurements & Calculations MV E max andrei: 74.5 cm/sec Lat Peak E' Andrei: 6.5 cm/sec Med Peak E' Andrei: 5.0 cm/sec MV A max andrei: 135.7 cm/sec E/E' lat: 11.5 E/E' med: 14.8 MV E/A: 0.55 MV V2 max: 150.0 cm/sec MV P1/2t max andrei: 89.8 cm/sec Ao V2 max: 191.8 cm/sec MV max P.0 mmHg MV P1/2t: 108.5 msec Ao max P.8 mmHg MV V2 mean: 75.3 cm/sec MV mean P.6 mmHg MV dec slope: 242.3 cm/sec2 MV V2 VTI: 30.7 cm MVA(P1/2t): 2.0 cm2 LV V1 max: 195.8 cm/sec PA V2 max: 111.3 cm/sec TR max andrei: 266.7 cm/sec LV V1 max P.4 mmHg PA V2 mean: 77.3 cm/sec TR max P.5 mmHg ECHO/Echo Complete W/ Contrast Interpretation Summary The left ventricular ejection fraction is 70 %. Mild concentric left ventricular hypertrophy. Stage 1 diastolic dysfunction. Aortic sclerosis, no stenosis. Right atrium is small. Recommend CT or cardiac MRI to rule out external alfredo yuri. Mild focal mitral valve calcification of the posterior leaflet. Ordering Physician: Adenike Mcghee Referring Physician: Adenike Mcghee Performed By: Sukhdev Lang RCS
--- NOTE | 2023-11-25 08:13 | HP.OTDCNRP_ITS ---
Patient Information Patient Information: IVANA HERNANDEZ was seen in my office for initial evaluation on 08/05/23. The following Plan of Care was established for this patient: POC Established Initial Frequency: Every Other Week Initial Duration: 4 Weeks Plan: family to get velcro closure compression garments Anticipated Interventions Anticipated Interventions: Education re assistive Equipment, Education re Diagnosis, Education re Life-long lymphedema Management, Education re Self- Bandaging Techniques, Education re Skin Care and Precautions, Education re Self Massage Techniques, Education re Correct Donning Tech,Care&Wearing Sched Comp Garments, Caregiver Training and Home Program Last Seen Last Seen: This patient was last seen in our office 08/20/23. Pertinent comments regarding their Occupational therapy will appear below: pt was seen for 2 OT sessions. pt made gains with reduction in limb size. Family verbalized they would get Velcro closure compression garments. Pt has not scheduled further apts and is d/c at this time due to time lapse in services. At this point I will be discontinuing this patient from occupational therapy. I would be happy to see this patient again in the future if found appropriate by the physician. Thank you! Chary Almaguer, OTR/L, CHT
== END 2023-08-20 19:00 | disposition home or self-care (01) ==
LOC: OT 09:00
PROVIDERS: PCP Family Medicine; Referring Provider Family Medicine; Visit Provider Family Medicine
DX: I89.0 Lymphedema, not elsewhere classified (principal); M79.89 Other specified soft tissue disorders
CPT/HCPCS: 93306; 97166; 97530; C8929

== ENCOUNTER → 2023-08-20 | Outpatient (CLI) | payer MEDICARE, SELFPAY ==
--- OUTSIDE RECORDS SUMMARY | 2023-08-20 14:03 | XMS RPT_ITS | CCD ---
Author Name Unknown Address [address] [facility] [address] [place] [address] Organization [facility] Care Team Providers Care Bar Turner Name Role Phone LILIAN GUIDRY APRN, CNP [facility] Medications Current Medications Medication Drug Class(es) Dates Sig (Normalized) Sig (Original) celecoxib 200 mg oral capsule (1 source) Nonsteroidal Anti-inflammatory Drug Start: 1 End: 1 CeleBREX 200 mg oral capsule Dose : 200 mg = 1 cap(s), Oral, qDay, # 90 cap(s), 0 Refill(s), Pharmacy: [id number], Osteoarthritis, 150.7, cm, 02/21/21 9:21:00 EDT, Height, kg, 02/21/21 9:21:00 EDT, Dosing Weight Start Date: 04/24/21 Stop Date: 07/23/21 Status: Ordered Cholecalciferol (1 source) Vitamin D Start: 1 End: 2 cholecalciferol 50,000 intl units (1250 mcg) oral capsule Dose : 50,000 International_Unit = 1 cap(s), Oral, qmonth, # 4 cap(s), 2 Refill(s), Pharmacy: [facility], Vitamin D deficiency, 150.7, cm, 11/21/20 10:20:00 EDT, Height, kg, 11/21/20 10:20:00 EDT, Dosing Weight Start Date: 11/21/20 Stop Date: 08/18/21 Status: Ordered hydroCHLOROthiazide 25 mg / telmisartan 80 mg oral tablet (1 source) Thiazide Diuretic, Angiotensin 2 Receptor Meghna Start: 1 End: 2 take 1 tablet by mouth once daily, then take 1 tablet by mouth once daily hydrochlorothiazide -telmisartan 25 mg-80 mg oral tablet Dose = 1 tab(s), Oral, qDay, TAKE 1 TABLET BY MOUTH ONCE DAILY, # 90 tab(s), 2 Refill(s), Pharmacy: [facility], HTN, goal below 140/90, 150.7, cm, 11/21/20 10:20:00 EDT, Height, kg, 11/21/20 10:20:00 EDT, Dosing Weight Start Date: 11/21/20 Stop Date: 08/18/21 Status: Ordered rOPINIRole 1 mg oral tablet (1 source) Nonergot Dopamine Agonist Start: 1 End: 2 rOPINIRole 1 mg oral tablet Dose : 1 mg = 1 tab(s), Oral, 1hHS, TAKE 1 TABLET BY MOUTH AT BEDTIME, # 90 tab(s), 2 Refill(s), Pharmacy: [facility], Restless leg syndrome, 150.7, cm, 11/21/20 10:20:00 EDT, Height, kg, 11/21/20 10:20:00 EDT, Dosing Weight Start Date: 11/21/20 Stop Date: 08/18/21 Status: Ordered rosuvastatin calcium 10 mg oral tablet (1 source) HMG-CoA Reductase Inhibitor Start: 1 End: 2 rosuvastatin 10 mg oral tablet Dose : 10 mg = 1 tab(s), Oral, qDay, TAKE 1 TABLET BY MOUTH ONCE DAILY, # 90 tab(s), 2 Refill(s), Pharmacy: [facility], Hyperlipidemia, 150.7, cm, 11/21/20 10:20:00 EDT, Height, kg, 11/21/20 10:20:00 EDT, Dosing Weight Start Date: 11/21/20 Stop Date: 08/18/21 Status: Ordered Completed/Discontinued Medications Medication Drug Class(es) Dates Sig (Normalized) Sig (Original) Prolia 60 mg/mL subcutaneous solution (1 source) Start: 04-15-2021 End: 04-10-2022 Prolia 60 mg/mL subcutaneous solution Dose : 60 mg = 1 mL, Subcutaneous, q6mo, # 1 mL, 1 Refill(s) Start Date: 04/15/21 Stop Date: 04/10/22 Status: Ordered Problems Problem Classification Problem Date Documented Da te Episodic/Chronic Chronic kidney disease (1 source) Chronic kidney disease stage 3 11-21-2019 Chronic Diabetes mellitus without complication (1 source) Type 2 diabetes mellitus 02-20-2020 Chronic Disorders of lipid metabolism (1 source) Hyperlipidemia 11-21-2019 Chronic Essential hypertension (1 source) Hypertensive disorder 05-22-2019 Chronic Nutritional deficiencies (1 source) Vitamin D deficiency 11-21-2019 Chronic Osteoarthritis (1 source) Osteoarthritis 05-19-2019 Chronic Osteoporosis (1 source) Osteoporosis 06-08-2019 Chronic Other hereditary and degenerative nervous system conditions (1 source) Restless legs 05-19-2019 Chronic Other non-traumatic joint disorders (1 source) Chronic ankle pain 05-19-2019 Episodic Residual codes; unclassified (1 source) Increased body mass index 11-21-2019 Episodic Residual codes; unclassified (1 source) Postmenopausal state 05-22-2019 Episodic Spondylosis; intervertebral disc disorders; other back problems (1 source) Degeneration of lumbosacral intervertebral disc 02-21-2021 Chronic Spondylosis; intervertebral disc disorders; other back problems (1 source) Chronic low back pain 02-21-2021 Episodic Unclassified (6 sources) Patient encounter status 05-08-2021 Results Test Name Value Interpretation Reference Range Facil ity Encounters Encounter Date Encounter Type Care Provider Facility Start: 05-27-2021 End: 05-27-2021 Patient encounter procedure LILIAN BENNETT [employer] [facility] Procedures Date Procedure Procedure Detail Performing Clinician Hysterectomy LILIAN Newberry [employer] - [employer] Tonsillectomy LILIAN CAMARA [employer] [facility] Immunizations Immunization Date Immunization Notes Care Provider Fa ciliblake 01-01-2021 SARS-CoV-2 (COVID-19 ) [id number] vaccine LILIAN BENNETT [employer] [facility] 11-23-2020 SARS-CoV-2 (COVID-19 ) [id number] vaccine LILIAN SABRINA [employer] - [employer] [facility] 05-07-2020 influenza, injectabl e, quadrivalent, preservative free; Translations: [Fluarix PF Quadrivalent ] LILIAN BENNETT [employer] [facility] 05-22-2019 influenza, injectabl e, quadrivalent, preservative free; Translations: [Fluarix PF Quadrivalent ] LILIAN BENNETT [employer] [facility] 06-09-2017 influenza virus vaccine, unspecified formulation LILIAN BENNETT [employer] [facility] 06-09-2017 pneumococcal conjuga te vaccine, 13 valent LILIAN BENNETT [employer] [facility] 07-13-2016 influenza virus vaccine, unspecified formulation LILIAN BENNETT [employer] [facility] Social History Date Type Detail Facility Start: 05-19-2019 Never smoked t obacco (finding) [facility] Sex Assigned At [facility] Evaluation + Plan note Laboratory Note Date & Type Note Facility Evaluation + Plan note Future Appointments Appointment Date:05/30/2021 10:15:00 AM Scheduled Provider: Location:[facility] Appointment Type:PC Nurse Lab Appointment Date:06/05/2021 10:20:00 AM Scheduled Provider:LILIAN BENNETT APRN, CNP Location:[facility] Appointment Type:PC OV Follow Up Future Scheduled [id number] Hemoglobin 08/23/20A1C Hemoglobin 05/23/21Complete Blood Count 05/23/21Lipid Profile 05/23/21Vitamin D Level 05/23/21Complete Metabolic Panel 05/23/21 [facility] Hospital course Narrative Note Date & Type Note Facility Hospital course Narrative No data available for this section [facility] Hospital Discharge instructions Note Date & Type Note Facility Hospital Discharge instructions No data available for this section [facility] Summary Purpose Family History No Family History Records Found Advance Directives No Advanced Directives Records Found Additional Source Comments INFORMATION SOURCE (unrecogn ized section and content) FOR RECORDS PERTAINING TO PATIENTS WHO ARE OR HAVE BEEN ENROLLED IN A CHEMICAL DEPENDENCY/SUBSTANCEABUSE PROGRAM, SOME INFORMATION MAY BE OMITTED. This clinical summary was aggregated from multiple sources. Caution should be exercised in using it in the provision of clinical care. This summary normalizes information from multiple sources, and as a consequence, information in this document may materially change the coding, format and clinical context of patient data. In addition, data may be omitted in some cases. CLINICAL DECISIONS SHOULD BE BASED ON THE PRIMARY CLINICAL RECORDS. [facility]. provides no warranty or guarantee of the accuracy or completeness of information in this document.
== END | disposition home or self-care (01) ==
PROVIDERS: PCP Family Medicine; Referring Provider Family Medicine; Visit Provider Family Medicine
DX: I07.1 Rheumatic tricuspid insufficiency (principal)
CPT/HCPCS: 93306; Q9957; A4216; C8929

== ENCOUNTER 2023-10-01 13:36 | Emergency (ER) | payer MEDICARE, SELFPAY ==
[2023-10-01 13:37] VITALS: BP 141/117; PULSE 63; RESP 16; TEMP 36.6; O2SAT 100
--- NOTE | 2023-10-01 13:46 | VDLE_ITS ---
Reason For Study: PULMONARY EMBOLISM RIGHT LEFT GSV is normal. GSV is normal. Acute deep vein thrombosis is noted in the VESSEL WALL thickening noted in the CFV, CFV. It is dilated and NONCOMPRESSIBLE. SFJ. Acute deep vein thrombosis is noted in the CFV & SFJ PARTIALLY COMPRESSIBLE, with flow FV. It is dilated and NONCOMPRESSIBLE. noted in vessel. Acute deep vein thrombosis is noted in the POP V is NONCOMPRESSIBLE with low flow noted POP V. It is dilated and NONCOMPRESSIBLE. in vessel. T/P Trunk is compressible. PTV & PERV not well visualized. PTV is compressible. NONVASCULAR HYPOECHOIC STRUCTURE noted in Unable to visualilze the PERV. the POP FOSSA space measuring 2.60 x 1.12. NONVASCULAR HYPOECHOIC structures noted in T/P Trunk is compressible. pop fossa space measuring 1.74 x 2.09 & 2.92 x 1.16. Procedure This is a venous duplex using B-mode, color flow and spectral Doppler. Exam performed portable in ED. The study was technically difficult. A preliminary report was called and/or faxed to Dr. Payne at end of exam. VL/Venous Duplex US - Minesh Extrem Interpretation Summary Acute deep vein thrombosis is noted in the right common femoral vein, femoral v ein, popliteal vein. Chronic deep vein thrombus noted in the left common femoral vein, saphenofemora l junction, popliteal vein Nonvascular hypoechoic structure noted in the left popliteal fossa measuring 2. 60 x 1.12. Ordering Physician: Cherelle Payne Referring Physician: Adenike Mcghee Performed By: Carrol Beckham, ROLANDO, RVT
[2023-10-01 14:07] LABS: Absolute Lymphocyte Count 1.66 X10^3/uL (0.83-4.51); Absolute Neutrophil Count 10.2 X10^3/uL (2.0-7.7); Basophil# 0.06 X10^3/uL; Basophil% 0.5 % (0-1); Eosinophil# 0.17 X10^3/uL; Eosinophils% 1.3 % (0-5); Hematocrit 40.7 % (37-47); Hemoglobin 12.7 g/dL (12.0-15.0); Lymphocyte # 1.66 X10^3/ul (0.83-4.51); Lymphocyte % 12.6 % (19-41); Mean Corp Hgb Conc 31.2 g/dL (32-36); Mean Corpuscular Hgb 30.9 pg (27.0-32.0); Mean Platelet Vol. 10.1 fl (6.2-12.0); Monocyte# 1.07 X10^3/uL; Monocyte% 8.1 % (0-10); NRBC Flagged by Analyzer 0 % (0-5); Neutrophil # 10.17 X10^3/uL (2.7-7.7); Platelet Count 267 K/mm3 (150-450); RBC Distribution Width CV 13.2 % (11.6-14.6); RBC Distribution Width SD 48.4 fl (35.1-43.9); Red Blood Count 4.11 M/mm3 (4.2-5.4); White Blood Count 13.2 K/mm3 (4.4-11.0)
[2023-10-01 14:13] LABS: International Normalized Ratio 1.1; Prothrombin Time (Protime)PT. 14.4 SECONDS (11.7-14.9)
[2023-10-01 14:14] LABS: Partial Thromboplast Time 23.9 Seconds (24.1-36.2)
--- OUTSIDE RECORDS SUMMARY | 2023-10-01 14:24 | XMS RPT_ITS | CCD ---
Author Name Unknown Address [address] [facility] [address] [place] [address] Organization [facility] Care Team Providers Care Theater Projectionist Name Role Phone LILIAN GUIDRY APRN, CNP [facility] Phys [facility] Medications Current Medications Medication Drug Class(es) Dates Sig (Normalized) Sig (Original) celecoxib 200 mg oral capsule (1 source) Nonsteroidal Anti-inflammatory Drug Start: 1 End: 1 CeleBREX 200 mg oral capsule Dose : 200 mg = 1 cap(s), Oral, qDay, # 90 cap(s), 0 Refill(s), Pharmacy: [facility], Osteoarthritis, 150.7, cm, 02/21/21 9:21:00 EDT, Height, kg, 02/21/21 9:21:00 EDT, Dosing Weight Start Date: 04/24/21 Stop Date: 07/23/21 Status: Ordered Cholecalciferol (1 source) Vitamin D Start: 1 End: 2 cholecalciferol 50,000 intl units (1250 mcg) oral capsule Dose : 50,000 International_Unit = 1 cap(s), Oral, qmonth, # 4 cap(s), 2 Refill(s), Pharmacy: [facility], Vitamin D deficiency, 150.7, cm, [...] # 90 tab(s), 2 Refill(s), Pharmacy: [facility], HTN, goal below 140/90, 150.7, [...] # 90 tab(s), 2 Refill(s), Pharmacy: [facility], Restless leg syndrome, 150.7, cm, [...] # 90 tab(s), 2 Refill(s), Pharmacy: 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 Tonsillectomy LILIAN CAMARA [employer] Immunizations Immunization Date Immunization Notes Care Provider Fa ciliblake 01-01-2021 SARS-CoV-2 (COVID-19 ) [id number] vaccine LILIAN BENNETT [employer] [facility] 11-23-2020 SARS-CoV-2 (COVID-19 ) [id number] vaccine LILIAN SABRINA [employer] - [employer] [facility] 05-07-2020 influenza, injectabl e, quadrivalent, preservative free; Translations: [Fluarix PF Quadrivalent ] LILIAN BENNETT [employer] [facility] 05-22-2019 influenza, injectabl e, quadrivalent, preservative free; Translations: [Fluarix PF Quadrivalent ] LILIAN BENNETT [employer] [facility] 06-09-2017 influenza virus vaccine, unspecified formulation LILIAN BENNETT [employer] [facility] 06-09-2017 pneumococcal conjuga te vaccine, 13 valent LILIAN BENNETT [employer] [facility] 07-13-2016 influenza virus vaccine, unspecified formulation LILIAN BENNETT [employer] [facility] Social History Date Type Detail Facility Start: 05-19-2019 Never smoked t obacco (finding) [facility] Sex Assigned At [facility] Evaluation + Plan note Laboratory Note Date & Type Note Facility Evaluation + Plan note Future Appointments Appointment Date:05/30/2021 10:15:00 AM Scheduled Provider: Location:[facility] Appointment Type:PC Nurse Lab Appointment Date:06/05/2021 10:20:00 AM Scheduled Provider:LILIAN BENNETT APRN, CNP Location:[facility] Appointment Type:PC OV Follow Up Future Scheduled [id number] Hemoglobin 08/23/20A1C Hemoglobin 05/23/21Complete Blood Count 05/23/21Lipid Profile 05/23/21Vitamin D Level 05/23/21Complete Metabolic Panel 05/23/21 [facility] Hospital course Narrative Note Date & Type Note Facility Hospital course Narrative No data available for this section [facility] Hospital Discharge instructions Note Date & Type Note Facility Hospital Discharge instructions No data available for this section [facility] Summary Purpose Family History No Family [...] BE BASED ON THE PRIMARY CLINICAL RECORDS. [facility]. provides no warranty or guarantee of the accuracy or completeness of information in this document.
[2023-10-01 14:28] LABS: ALB/GLOB Ratio 0.9 RATIO (0.9-2.4); AST(SGOT) 14 U/L (15-37); Alanine Aminotransfer ALT/SGPT 20 U/L (13-56); Albumin, Serum 3.1 g/dL (3.2-5.0); Alkaline Phosphatase 63 U/L (45-117); Anion Gap 3 (5-15); BUN 17 mg/dL (7-18); BUN/Creat Ratio 20.9 RATIO (10-20); Calcium,Total 9.3 mg/dL (8.5-10.1); Chloride 108 mmol/L (98-107); Creatinine, Serum 0.81 mg/dL (0.55-1.02); EST Glomerular Filtration Rate 73 mL/min (>60); Est Glom Filt Rate - Afr Amer 88 mL/min (>60); Globulin 3.3 g/dL (2.2-4.2); Glucose 103 mg/dL (74-106); Potassium 3.4 mmol/L (3.5-5.1); Protein, Total 6.4 g/dL (6.4-8.2); Sodium Level 144 mmol/L (136-145); Troponin-I HS 9 pg/mL (3.0-54.0)
[2023-10-01 14:37] VITALS: O2SAT 94
[2023-10-01 15:36] VITALS: RESP 16
[2023-10-01 16:13] LABS: Lactic Acid 1.4 mmol/L (0.4-1.9)
--- NOTE | 2023-10-01 16:21 | EDS_ITS ---
HPI History of Present Illness Chief Complaint: Shortness of Breath Informant: patient and family Narrative Narrative: Patient is a 78 year old female with history of DVT, no longer on anticoagulation, presenting from radiology for concern of saddle pulmonary embo lism. Patient had an outpatient CT PE study ordered today because of abnormal echocardiogram obtained last month. Patient has been having issues with lower extremity swelling for the past few months. Recently also had a wound with concern for possible infection to her right miller which has been healing. She is not on any antibiotics. Does have a history of C. difficile. Patient denies any shortness of breath, chest pain, dyspnea on exertion, exercise intolerance or any other complaints acutely. She notes that she has had ongoing bruising and swelling of her lower extremities but denies any acute change in this. She saw vascular surgery PA, earlier in the week for evaluation of this leg swelling. Has not had a recent venous duplex. No other complaints or concerns at this time. Notes she previously was on Eliquis for her DVT and tolerated it well. [facility] Medical History Chronic neuropathic pain DVT (deep venous thrombosis) HLD (hyperlipidemia) HTN (hypertension) Hypertension Leukocytosis Rheumatoid arthritis RLS (restless legs syndrome) Wound of right lower extremity Home Medications gabapentin 100 mg capsule 100 mg PO BID neuropathy 12/17/22 [History Last Taken 10/01/23] ropinirole 1 mg tablet 1 mg PO QHS restless legs 12/17/22 [History Last Taken 09/30/23] rosuvastatin 10 mg tablet 10 mg PO QHS cholesterol 12/17/22 [History Last Taken 09/30/23] cholecalciferol (vitamin D3) 50 mcg (2,000 unit) capsule 50 mcg PO DAILY 08/24/23 [History Last Taken 10/01/23] donepezil 5 mg tablet 5 mg PO QHS 08/24/23 [History Last Taken 09/30/23] budesonide 3 mg capsule,delayed,extended release 9 mg (3 x 3 mg) PO DAILY #90 ea 08/26/23 [Rx Last Taken 10/01/23] telmisartan 20 mg tablet 20 mg PO DAILY 09/01/23 [History Last Taken 10/01/23] magnesium 200 mg tablet 200 mg PO BID 09/28/23 [History Last Taken 10/01/23] apixaban 5 mg (74 tabs) tablets in a dose pack (Eliquis DVT-PE Treat 30D Start) 5 mg PO BID #74 tabs 10/01/23 [Rx Last Taken Unknown] torsemide 20 mg tablet 30 mg PO DAILY PRN edema 10/01/23 [History Last Taken 09/30/23] Allergy/AdvReac Type Severity Reaction Status Date / Time No Known Allergies Allergy Verified 10/01/23 13:38 Family History Mother Pancreatic cancer Father Heart disease Hypertension Surgical History H/O: hysterectomy History of ankle surgery History of tonsillectomy and adenoidectomy Social History household members: none current occupational status: retired current occupation: [employer] Smoking Status: Never smoker alcohol intake: never substance use type: does not use ROS ROS ED Constitutional Constitutional ED: Denies chills or fever(s) Cardiovascular Cardiovascular: Denies chest pain or palpitations Respiratory/Chest Respiratory/Chest: Denies cough, dyspnea or dyspnea on exertion Gastrointestinal Gastrointestinal: Denies nausea or vomiting Musculoskeletal Musculoskeletal: Reports other Details: Lower extremity edema Neurologic Neurologic: Denies headache(s) Hematologic/Lymphatic Hematologic/Lymphatic: Reports easy bruising; Denies easy bleeding EXAM Physical Exam Const Vital Signs: 10/01/23 13:37 10/01/23 15:30 Temperature 98 F Temperature Source Temporal Pulse Rate 63 Respiratory Rate 16 Respiratory Effort Normal Non-Labored Respiratory Depth Normal Respiratory Pattern Normal Blood Pressure 141/117 H Blood Pressure Mean 125 Pulse Ox 100 Oxygen Delivery Method Room Air Room Air Positive well nourished and well developed General Appearance ED: well developed HEENT Reports moist mucous membranes Neck supple and no JVD Chest Wall inspection of chest normal and palpation of chest normal Resp normal respiratory effort and clear to auscultation bilaterally Cardio regular rate, regular rhythm and no murmurs GI normal to inspection, nondistended, normoactive bowel sounds and non-tender Extremity normal to inspection Extremity Narrative: Significant chronic appearing lymphedema. Nonpitting. No weeping present. No palpable cords appreciated. General Extremety ED: Yes edema; Negative for tenderness General Extremity: edema Neuro oriented x3 Sensorium / Orientation: alert Psych mental status grossly normal Skin Skin Narrative: Scattered ecchymosis in variable stages of. Bleeding of the lower extremities. Patient has a triangle shaped approximately 3 cm healing wound to the right anterior miller. No surrounding erythematous changes or signs of secondary infection MDM MDM MDM Narrative Medical decision making narrative: Patient is evaluated for abnormal outpatient CT chest that showed bilateral PE's with large clot burden. She is essentially asymptomatic. Workup including CBC, CMP, troponin, BNP and later lactate are normal. I did review that CT which did not fact show bilateral pulmonary bite with large clot burden. No findings consistent with right heart strain. Venous duplex ordered which does show extensive DVT of the right lower extremity per wet read. Patient is neuro vastly intact. Lab work normal and after discussion with hospitalist, pulmonology and vascular surgery who stated that if patient is able to ambulate with out any hypoxia, has normal BNP, troponin and is otherwise asymptomatic can be discharged home on Eliquis. Patient will follow-up outpatient with vascular surgery she might be candidate for clot retrieval for her leg. Is given strict return precautions to the emergency room. Is given first dose of 10 mg Eliquis in the emergency room. Kidney function is normal and she does not require any dose adjustment. Patient and daughter agreeable with plan of care. Patient is ambulate in the ER and does extremely well. Lab Data Attestation: I reviewed the patient's lab results. Labs: Laboratory Results - last 24 hr 10/01/23 10/01/23 13:50 15:30 WBC 13.2 H RBC 4.11 L Hgb 12.7 Hct 40.7 MCV 99.0 MCH 30.9 MCHC 31.2 L RDW Std Deviation 48.4 H RDW Coeff of Chandan 13.2 Plt Count 267 MPV 10.1 Immature Gran % (Auto) 0.500 Neut % (Auto) 77.0 H Lymph % (Auto) 12.6 L Callahan % (Auto) 8.1 Eos % (Auto) 1.3 Baso % (Auto) 0.5 Absolute Neuts (auto) 10.2 H Absolute Lymphs (auto) 1.66 Nucleated RBC % 0 PT 14.4 INR 1.1 APTT 23.9 L Sodium 144 Potassium 3.4 L Chloride 108 H Carbon Dioxide 33.0 H Anion Gap 3 L BUN 17 Creatinine 0.81 Est GFR (MDRD) Af Amer 88 Est GFR (MDRD) Non-Af 73 BUN/Creatinine Ratio 20.9 H Glucose 103 Lactic Acid 1.4 Calcium 9.3 Total Bilirubin 0.70 AST 14 L ALT 20 Alkaline Phosphatase 63 Troponin I High Sens 9 B-Natriuretic Peptide 71.0 Total Protein 6.4 Albumin 3.1 L Globulin 3.3 Albumin/Globulin Ratio 0.9 Radiography Diagnostic Testing: IMPRESSION: Bilateral pulmonary emboli involving the main pulmonary arteries as well as branches in the lower lobes and interlobar pulmonary arteries. Elevation of the right hemidiaphragm with bibasilar atelectasis. Electronically Signed: Silverio Harrington MD Management Discussion w/another healthcare provider: Hospitalist and Religious Educator (Pulmonology, vascular surgery) Discharge Plan Triage Chief Complaint: Shortness of Breath ED Provider: Cherelle Payne Dx/Rx/DC Orders Clinical Impression: Acute deep vein thrombosis (DVT) of right lower extremity, Bilateral pulmonary embolism Instructions: Embolism Pulmonary Dc, ED Deep Vein Thrombosis (DVT) Prescriptions: New Eliqu DVT-PE Treat 30D Start 5 mg (74 tabs) tablets,dose pack 5 mg PO BID Qty: 74 0RF No Action telmisartan 20 mg tablet 20 mg PO DAILY donepezil 5 mg tablet 5 mg PO QHS cholecalciferol (vitamin D3) 50 mcg (2,000 unit) capsule 50 mcg PO DAILY magnesium 200 mg tablet 200 mg PO BID ropinirole 1 mg tablet 1 mg PO QHS Patient Comments: TAKE 1 TABLET BY MOUTHTEVERY NIGHT AT BEDTIME gabapentin 100 mg capsule 100 mg PO BID Patient Comments: TAKE 1 CAPSULE BY MOUTH 2nTIMES A DAYt rosuvastatin 10 mg tablet 10 mg PO QHS Patient Comments: TAKE 1 TABLET BY MOUTHCONCE DAILYE torsemide 20 mg tablet 30 mg PO DAILY PRN (Reason: edema) Patient Comments: TAKE 1 TABLET BY MOUTHTONCE DAILY, WHEN EDEMA IS WORSE, TAKE 1&1/2 TABLETS budesonide 3 mg capsule,delayed,extend.release 9 mg PO DAILY Qty: 90 2RF Primary Care Provider: Adenike Mcghee Referrals: Gui Mccain MD [Med Staff - Active Staff] - 3-5 Days Adenike Mcghee, DO [Primary Care Provider] - Disposition Disposition: Home, Self Care
[2023-10-01] MEDS: APIXABAN 5 MG TABLET 10 MG PO (16:35)
[2023-10-01 16:36] VITALS: RESP 18
[2023-10-01 16:55] VITALS: BP 132/89; PULSE 74; RESP 18; TEMP 36.6; O2SAT 99
== END 2023-10-01 16:56 | disposition home or self-care (01) ==
PROVIDERS: Emergency Provider Emergency Medicine; PCP Family Medicine; Visit Provider Emergency Medicine
DX: I26.99 Other pulmonary embolism without acute cor pulmonale (principal); I82.411 Acute embolism and thrombosis of right femoral vein; I82.431 Acute embolism and thrombosis of right popliteal vein; I10 Essential (primary) hypertension; E78.5 Hyperlipidemia, unspecified; Z79.899 Other long term (current) drug therapy; Z86.718 Personal history of other venous thrombosis and embolism
CPT/HCPCS: 80053; 83605; 83880; 84484; 85025; 85610; 85730; 93970; 99284; A4216

== ENCOUNTER → 2023-10-01 | Outpatient (CLI) | payer MEDICARE, SELFPAY ==
--- NOTE | 2023-10-01 12:59 | CT_ITS ---
STUDY: CTA CHEST REASON FOR EXAM: Female, 78 years old. MILD DIASTOLIC DYSFUNCTION RADIATION DOSAGE (If Supplied By Facility): CTDIvol = ( 16.11 ) mGy, DLP = ( 523.23 ) mGycm TECHNIQUE: The examination was performed with the intravenous administration of IV 100mL Isovue-370. Post-processing of the angiographic images was performed, with multiplanar reformation and 3D reconstruction. Individualized dose optimization techniques were used for this CT. COMPARISON: None. FINDINGS: Filling defects are seen in the right and left main pulmonary arteries as well as branches in the lower lobes bilaterally and the intermediate stem pulmonary arteries. This is in keeping with the moderate to large load of pulmonary embolism. Normal thoracic aorta and visualized great vessels. There is no demonstrated aortic dissection. Normal heart and pericardium. Normal mediastinum. Normal hilar regions. Normal visualized trachea and bronchi. Elevation of the right hemidiaphragm. Increased markings at the lung bases suggestive of atelectasis. Normal pulmonary parenchyma. Normal pleura. Normal chest wall structures. There are degenerative changes of thoracic spine. Increased kyphosis. Dextroscoliosis. Normal visualized upper abdomen. CT/CTA Chest W/WO Contrast IMPRESSION: Bilateral pulmonary emboli involving the main pulmonary arteries as well as branches in the lower lobes and interlobar pulmonary arteries. Elevation of the right hemidiaphragm with bibasilar atelectasis. Electronically Signed: Silverio Harrington MD at 13:49 EST ,
[2023-10-01 13:41] LABS: CREATININE FINGERSTICK < 1.0 mg/dL (0.55-1.02); EGFR FINGERSTICK > 60.0000 mL/min (>60)
== END | disposition home or self-care (01) ==
PROVIDERS: PCP Family Medicine; Referring Provider Family Medicine; Visit Provider Family Medicine
DX: I51.9 Heart disease, unspecified (principal)
CPT/HCPCS: 71275; Q9967

== ENCOUNTER → 2023-12-23 | Outpatient (CLI) | payer MEDICARE, SELFPAY ==
--- NOTE | 2023-12-23 09:47 | VDLE_ITS ---
Reason For Study: BLE Swelling / HX BLE DVT RIGHT LEFT CFV is PARTIALLY COMPRESSIBLE, spontaneous, CFV is compressible, spontaneous, phasic, phasic, competent and demonstrates normal competent, and demonstrates normal augmentation. Finding consistent with CHRONIC augmentation. DVT FV is PARTIALLY COMPRESSIBLE, spontaneous, FV is PARTIALLY COMPRESSIBLE, spontaneous, phasic, competent and demonstrates normal phasic, competent and demonstrates normal augmentation. Finding consistent with CHRONIC augmentation. Finding consistent with CHRONIC DVT DVT POP V is PARTIALLY COMPRESSIBLE, spontaneous, POP V is PARTIALLY COMPRESSIBLE, spontaneous, phasic, competent and demonstrates normal phasic, demonstrates reflux greater than 1 augmentation. Finding consistent with CHRONIC second.. Finding consistent with CHRONIC DVT DVT T/P Trunk is PARTIALLY COMPRESSIBLE. Finding T/P Trunk is PARTIALLY COMPRESSIBLE consistent with CHRONIC DVT PTV is compressible. PTV is compressible. Chiki V is PARTIALLY COMPRESSIBLE. RT PerV is compressible. SFJ is competent and measures 0.42 cm. GSV proximal thigh measures 0.39 x 0.43 cm. Non vascularized area of mixed echoes noted GSV at knee measures 0.16cm x 0.17cm cm. in Rt Pop Fossa measuring approximately GSV is competent throughout. 5.48cm x 3.19cm. SSV proximal calf is competent and measures 0.26 x 0.25 cm. SSV is PARTIALLY COMPRESSIBLE and spontaneous with normal augmentation. Bright intraluminal echoes and vein wall thickening noted throughout. Finding consistent with CHRONIC SVT. SFJ is competent and measures 0.41 cm. GSV proximal thigh measures 0.39 x 0.35 cm. GSV at knee measures 0.27 x 0.30 cm. GSV is competent throughout. Procedure This is a venous duplex using B-mode, color flow and spectral Doppler. Exam performed in department. The exam was diagnostic. The study was technically difficult. VL/Venous Duplex US - Minesh Extrem Interpretation Summary Chronic deep vein thrombosis noted in the right common femoral vein, femoral ve in, popliteal vein, tibioperoneal trunk vein. Chronic deep vein thrombosis noted in the left femoral vein, popliteal vein, ti bioperoneal trunk vein, peroneal vein. Chronic superficial vein thrombosis noted in the right small saphenous vein. Negative for reflux bilateral Non vascularized area of mixed echoes noted in right popliteal fossa measuring approximately 5.48cm x 3.19cm. Ordering Physician: Bea Zhou Referring Physician: Chey Velez Performed By: Steven Goss RVT
== END | disposition home or self-care (01) ==
LOC: CVS 09:42
PROVIDERS: PCP Family Medicine; Referring Provider Physician Assistant; Visit Provider Physician Assistant
DX: R60.0 Localized edema (principal); G62.9 Polyneuropathy, unspecified; R73.9 Hyperglycemia, unspecified
CPT/HCPCS: 36415; 80048; 83036; 83883; 84425; 84443; 93970

== ENCOUNTER → 2023-12-23 | Outpatient (CLI) | payer MEDICARE, SELFPAY ==
[2023-12-23 16:34] LABS: Hemoglobin A1c 6.2 % (3.8-5.6)
[2023-12-23 16:58] LABS: Anion Gap 10 (5-15); BUN 19 mg/dL (7-18); BUN/Creat Ratio 22.5 RATIO (10-20); Calcium,Total 9.4 mg/dL (8.5-10.1); Chloride 102 mmol/L (98-107); Creatinine, Serum 0.84 mg/dL (0.55-1.02); EST Glomerular Filtration Rate 69 mL/min (>60); Est Glom Filt Rate - Afr Amer 84 mL/min (>60); Glucose 151 mg/dL (74-106); Potassium 2.9 mmol/L (3.5-5.1); Sodium Level 141 mmol/L (136-145); Thyroid Stim Hormone (TSH) 0.91 uIU/mL (0.358-3.74)
[2023-12-28 19:07] LABS: Free Kappa Light Chains 34.2 mg/L (3.3-19.4); Free Lambda Light Chains 25.5 mg/L (5.7-26.3); Vitamin B1, Thiamine 185.7 nmol/L (66.5-200.0)
== END | disposition home or self-care (01) ==
LOC: MFPLAB 11:10
PROVIDERS: Psychiatry & Neurology Neurology; PCP Family Medicine; Visit Provider Family Medicine
DX: G62.9 Polyneuropathy, unspecified (principal); R73.9 Hyperglycemia, unspecified; R60.0 Localized edema
CPT/HCPCS: 36415; 80048; 83036; 83883; 84425; 84443

== ENCOUNTER → 2024-02-09 | Outpatient (CLI) | payer MEDICARE, SELFPAY ==
--- NOTE | 2024-02-09 10:53 | VDLE_ITS ---
Reason For Study: Right leg swelling RIGHT LEFT GSV is normal. CFV is compressible, spontaneous, phasic, CFV is PARTIALLY COMPRESSIBLE, spontaneous, competent, and demonstrates normal phasic, competent and demonstrates normal augmentation. augmentation. Finding consistent with CHRONIC DVT FV is PARTIALLY COMPRESSIBLE, spontaneous, phasic, competent and demonstrates normal augmentation. Finding consistent with CHRONIC DVT POP V is PARTIALLY COMPRESSIBLE, spontaneous, phasic, demonstrates reflux greater than 1 second.. Finding consistent with CHRONIC DVT T/P Trunk is PARTIALLY COMPRESSIBLE. Finding consistent with CHRONIC DVT. PTV is compressible. RT PerV is compressible. Non vascularized area of mixed echoes noted in Rt Pop Fossa measuring approximately 4.11 x 1.92. Procedure This is a venous duplex using B-mode, color flow and spectral Doppler. Exam performed in department. A preliminary report was called and/or faxed to Makenzie RIVERA. VL/Venous Duplex US, Unilateral Interpretation Summary Chronic deep vein thrombosis is noted in the right common femoral vein, femoral vein, popliteal vein, tibioperoneal trunk vein. Non vascularized area of mixed echoes noted in right popliteal fossa measuring approximately 4.11 x 1.92. Ordering Physician: Bea Zhou Referring Physician: Chey Velez Performed By: Lizeth Hinojosa RVT
== END | disposition home or self-care (01) ==
LOC: CVS 10:41
PROVIDERS: PCP Family Medicine; Referring Provider Physician Assistant; Visit Provider Physician Assistant
DX: M79.89 Other specified soft tissue disorders (principal)
CPT/HCPCS: 93971

== ENCOUNTER 2024-02-10 14:39 | Outpatient (RCR) | payer MEDICARE, SELFPAY ==
[2024-02-10 15:05] VITALS: BP 155/77; PULSE 88; RESP 16; TEMP 35.7; BMI 35.6
--- NOTE | 2024-02-10 16:30 | HP.PCM_ITS ---
History of Present Illness Date of Service: 02/10/24 Chief Complaint: Bilateral lower extremity wounds History of Wound: Mariama De León is a 78 y/o female who presents to the wound care center today for evaluation and management of her bilateral lower extremity wounds. She is accompanied to her appointment today by her daughter who helps with her care. She has had recurrent wounds with very little provocation for the last several months. She has a wound on her L lateral calf which has been present greater than a month and the R miller wound has been present about 1 week. Both were instigated by her bumping her leg against something. She has been caring for these at home by keeping them clean and covered. Last week she noticed increased redness, swelling, and warmth around the RLE wound. A venous duplex was negative for DVT. I started empiric antibiotic treatment with Keflex and Doxycycline which she is tolerating well. She does have significant chronic venous disease with extensive BLE DVTs for which she is on Eliquis. She has a venogram scheduled to assess for central venous compression contributing to her DVTs, edema, and recurrent wounds. She has been using ALLEN bandage for compression. She did recently order Circaids but has not received them yet. She does elevate her legs when resting. She does participate in exercise such as calf pumps and walking as tolerated. She has been dealing with significant BLE edema for several months. Her medical history is otherwise significant for RA. [facility] Medical History Wound of right lower extremity Leukocytosis HTN (hypertension) Chronic neuropathic pain RLS (restless legs syndrome) HLD (hyperlipidemia) Rheumatoid arthritis Hypertension DVT (deep venous thrombosis) Home Medications ?Medication ?Instructions ?Recorded ?Last Taken ?Type gabapentin 100 mg capsule 100 mg PO BID neuropathy 12/17/22 10/01/23 History ropinirole 1 mg tablet 1 mg PO QHS restless legs 12/17/22 09/30/23 History rosuvastatin 10 mg tablet 10 mg PO QHS cholesterol 12/17/22 09/30/23 History cholecalciferol (vitamin D3) 50 50 mcg PO DAILY 08/24/23 10/01/23 History mcg (2,000 unit) capsule telmisartan 20 mg tablet 20 mg PO DAILY 09/01/23 10/01/23 History magnesium 200 mg tablet 200 mg PO BID 09/28/23 10/01/23 History torsemide 20 mg tablet 30 mg PO DAILY PRN edema 10/01/23 09/30/23 History apixaban 5 mg tablet (Eliquis) 5 mg PO BID #60 tabs 10/13/23 Unknown Rx budesonide 3 mg 9 mg (3 x 3 mg) PO DAILY #90 ea 12/03/23 Unknown Rx capsule,delayed,extended release donepezil 10 mg tablet 10 mg PO QHS #90 tabs 12/21/23 Unknown Rx silver 1.2 %-foam bandage 4 X 4 1 ea topical DAILY #10 ea 02/02/24 Unknown Rx (Aquacel AG Foam) cephalexin 500 mg capsule 500 mg PO Q6H 7 days #28 caps 02/09/24 Unknown Rx doxycycline hyclate 100 mg capsule 100 mg PO BID 7 days #14 caps 02/09/24 Unknown Rx furosemide 20 mg tablet 20 mg PO DAILY 02/10/24 Unknown History Allergy/AdvReac Type Severity Reaction Status Date / Time No Known Allergies Allergy Verified 02/10/24 15:20 Family History Mother Pancreatic cancer Father Heart disease Hypertension Surgical History History of ankle surgery History of tonsillectomy and adenoidectomy H/O: hysterectomy Social History household members: none current occupational status: retired current occupation: [employer] Smoking Status: Never smoker alcohol intake: never substance use type: does not use Vital Signs Vital Signs Vital Signs: 02/10/24 15:05 Temperature 96.3 F L Temperature Source Temporal Pulse Rate 88 Respiratory Rate 16 Blood Pressure 155/77 H Blood Pressure Mean 103 Blood Pressure Source Monitor Blood Pressure Position Sitting Blood Pressure Location Left Arm Oxygen Delivery Method Room Air Weight Weight: 182 lb 3.861 oz Body Mass Index (BMI) 35.6 Physical Exam Const alert, oriented x3 and no apparent distress General Appearance: cooperative and comfortable HEENT normocephalic, head/scalp atraumatic, external ears normal and external nose normal Eyes EOMs intact bilaterally General Eye: normal appearance of both eyes Resp normal respiratory effort, no retractions and no use of accessory muscles Effort and Inspection: able to speak in complete sentences; Negative for labored, grunting or stridor Cardio Rate: regular rate Rhythm: regular rhythm Extremity Extremity Narrative: Bilateral lower extremity edema 3+. Circumference measurements as below: R ankle 27cm, R calf 46.5 cm L ankle 30 cm, L calf 45 cm Skin Wounds: wounds noted Wound Narrative: R miller wound with significant slough and adherent necrotic tissue which once debrided revealed a well-bleeding wound bed. Wound edges are viable without evidence of ischemia. There is not apparent tracking or undermining. There is moderate surrounding erythema, mild warmth. No significant drainage or foul odor appreciated. L lateral calf wound with dry adherent slough which once debrided revealed pink granulation tissue at the wound base. No surrounding erythema, warmth. No signnificant drainage or foul odor. No apparent tunneling or undermining. Wound measurements as noted in Debridement panel. Psych mental status grossly normal, cooperative, affect normal, speech normal and activity/motor behavior normal Attitude: calm and engaged Debridement Note Debridement Note Wound debrided: R miller Laterality: Right Type of Debridement: Excisional debridement Anesthesia Used: 5% Lidocaine Gel Depth: Down to and including healthy tissue and in the subcutaneous layer Percentage of wound debrided: 100 Instrument Used: 5mm curette Tissue Removed: slough, devitalized tissue Severity: Fat Layer Exposed Amount of bleeding with debridement: Mild Bleeding Controlled with: Pressure Patient tolerated procedure: Patient tolerated procedure well Post-Debridement Measurements and Additional Note: Post-Debridement Measurements/Treatment - Nurse 1 - General Ulcer Assessment Start: 02/10/24 15:05 Freq: Status: Active Protocol: DUY Activity Type Activity Date Activity User E-sign Co-sign Detail Recorded Client Recorded Date Recorded By Document 02/10/24 15:05 [facility] [id number] 02/10/24 15:17 [facility] 02/10/24 15:05 - Today's Visit Information Type of service Initial Visit Arrival Mode Ambulatory, Walker Transfer Assistance None Accompanied by DAUGHTER Patient Identification Verified (Name & Yes ) Patient Requires Transmission-Based No Precautions Height and Weight Height 5 ft Weight 182 lb 3.861 oz Weight in Pounds 182.2 lbs Weight Measurement Method Estimated by Patient Body Mass Index (BMI) 35.6 BMI Classification Obese BSA - Jaylin 1.79 Vital Signs Temperature (97.8 F-99.1 F) 96.3 F L Temperature Source Temporal Pulse Rate (60-100) 88 Pulse Location Monitor Respiratory Rate (12-18) 16 Respiratory rate source Observation Oxygen Delivery Method Room Air Blood Pressure (90/60-120/80) 155/77 H Blood Pressure Mean 103 Source Monitor Position Sitting Blood Pressure Location Left Arm History Since Last Visit- (Skip if this is Patient's initial visit) Left Footwear Regular Shoe Right Footwear Regular Shoe Pain Scale: 0-10 Numeric Is Patient Pain Free? Yes Communication Assessment Preferred language Bangladeshi Able to Read Yes Able to Write Yes Communication Tools None Right Hearing Abillity Normal Left Hearing Abillity Normal Visual Assistive Devices Glasses Teaching Assessment Preferences Verbal,Written, Audio/Visual, Demonstration Barriers to Learning None Readiness To Learn Excellent Willingness to Engage in Self Management High Activies Readiness to Engage in Self Management High Activities Anxiety Level Calm Cooperation Cooperative Perception Coherent Interest in Health Problem Asks Questions Education Importance Acknowledges Need Smoking Status Never smoker Is Patient Diabetic No Culture/Congregational/Process Lead Cultural/Congregational Needs that may affect No Treatment Plan Teaching: Wound Center *Welcome to the Wound Center -Person Taught Patient,Family -Teaching Method Discussion -Response to teaching Verbalize understanding WC - Nurse 1 - General Ulcer Measurement Start: 02/10/24 15:05 Freq: Status: Active Protocol: Activity Type Activity Date Activity User E-sign Co-sign Detail Recorded Client Recorded Date Recorded By Document 02/10/24 15:05 [facility] [email or web address] 02/10/24 15:17 [facility] 02/10/24 15:05 Wound Center Nurse 1 #2- L LAT LE -Combined with other wound No -Current Size (cm) - Length 1.1 -Current Size (cm) - Width 1.7 -Current Size (cm) - Depth 0.1 -Total Square Cm 1.87 -Date of Last Picture (Recall this 02/10/24 field) -Photo Taken Yes -Epithelialization None Present -Tunneling No -Undermining/Tunneling No -Circular Undermining No -Exudate Amt Medium -Exudate Type Serosanguineous -Wound Margin Distinct, Outline Attached -Granulation Amt None Present (0 %) -Slough/Fibrin Yes -Necrosis Amt Large (67-100%) -Necrotic Tissue Type Eschar -Texture (Astrid-wound Skin Appearance) Assessed, Scarring -Moisture (Astrid-wound Skin Appearance) Assessed -Color (Astrid-wound Skin Appearance) Assessed, Hemosiderin Staining -Temperature (Astrid-wound Skin No Abnormality Appearance) (Pt Warm) -Tenderness on Palpation (Astrid-wound No Skin Appearance) -Ulcer Cleansing Rinsed/ Irrigated with Saline -Foul Odor after Cleansing No -Anesthetic Used 5% Lidocaine Gel #1- R MILLER LACERATION -Combined with other wound No -Current Size (cm) - Length 3.3 -Current Size (cm) - Width 2.2 -Current Size (cm) - Depth 0.2 -Total Square Cm 7.26 -Date of Last Picture (Recall this 02/10/24 field) -Photo Taken Yes -Tunneling No -Undermining/Tunneling No -Circular Undermining No -Exudate Amt Medium -Exudate Type Serosanguineous -Wound Margin Distinct, Outline Attached -Granulation Amt Medium (34-66%) -Granulation Quality Red -Slough/Fibrin Yes -Necrosis Amt Medium (34-66%) -Necrotic Tissue Type Adherent Slough -Texture (Astrid-wound Skin Appearance) Assessed, Scarring -Moisture (Astrid-wound Skin Appearance) Assessed,Dry/ Scaly -Color (Astrid-wound Skin Appearance) Assessed, Hemosiderin Staining -Temperature (Astrid-wound Skin No Abnormality Appearance) (Pt Warm) -Tenderness on Palpation (Astrid-wound No Skin Appearance) -Ulcer Cleansing Rinsed/ Irrigated with Saline -Foul Odor after Cleansing No -Anesthetic Used 5% Lidocaine Gel Lower Limb Edema Present Yes Right Calf (cm) 46.5 Right Ankle (cm) 27 Left Calf (cm) 45 Left Ankle (cm) 30 - Nurse 2 - General Ulcer CM Notes Start: 02/10/24 15:05 Freq: Status: Active Protocol: Activity Type Activity Date Activity User E-sign Co-sign Detail Recorded Client Recorded Date Recorded By Document 02/10/24 15:40 GM 02/10/24 15:47 GM 02/10/24 15:40 Wound Center Nurse 2 #2- L LAT LE -Time 15:41 -Correct Patient Yes -Correct Side, Site, Position Yes -Correct Procedure Yes -Procedure Performed Yes -Type of Procedure Debridement -Clinical Debridement Subcutaneous -Tissue Removed Subcutaneous -Post Debridement (cm) - Length 0.7 -Post Debridement (cm) - Width 1.4 -Post Debridement (cm) - Depth 0.1 -Total Square (Post) (cm) 0.98 -Area of Debridement (cm) - Length 0.7 -Area of Debridement (cm) - Width 1.4 -Total Square (Area) (cm) 0.98 -Tunneling No -Undermining/Tunneling No -Circular Undermining No -Wound/Ulcer Outcome Not Healed -Ulcer Cleansing Rinsed/ Irrigated with Saline -Foul Odor after Cleansing No -Bioengineered Tissue No -Bleeding Controlled with Pressure -Treatment Response Procedure Tolerated Well -Debridement - Subq, 1st 20sq cm No #1- R MILLER LACERATION -Time 15:41 -Correct Patient Yes -Correct Side, Site, Position Yes -Correct Procedure Yes -Procedure Performed Yes -Type of Procedure Debridement -Clinical Debridement Subcutaneous -Tissue Removed Subcutaneous -Post Debridement (cm) - Length 3.7 -Post Debridement (cm) - Width 2.2 -Post Debridement (cm) - Depth 0.2 -Total Square (Post) (cm) 8.14 -Area of Debridement (cm) - Length 3.7 -Area of Debridement (cm) - Width 2.2 -Total Square (Area) (cm) 8.14 -Tunneling No -Undermining/Tunneling No -Circular Undermining No -Wound/Ulcer Outcome Not Healed -Ulcer Cleansing Not Cleansed -Foul Odor after Cleansing No -Bioengineered Tissue No -Bleeding Controlled with Pressure -Treatment Response Procedure Tolerated Well -Debridement - Subq, 1st 20sq cm Yes Pain Scale: 0-10 Numeric Is Patient Pain Free? Yes WC - Nurse 3 - General Ulcer D/C NN Start: 02/10/24 15:05 Freq: Status: Active Protocol: Activity Type Activity Date Activity User E-sign Co-sign Detail Recorded Client Recorded Date Recorded By Document 02/10/24 15:58 DL [email or web address] 02/10/24 15:59 DL 02/10/24 15:58 Wound Care Center Nurse 3 #2- L LAT LE -Ulcer Cleansing Rinsed/ Irrigated with Saline -Foul Odor after Cleansing No -Primary Dressing Applied Mepilex Border, Promogran Awilda Matter -Mepilex Border 1 -Promogran Awilda Matter 2 #1- R MILLER LACERATION -Ulcer Cleansing Rinsed/ Irrigated with Saline -Foul Odor after Cleansing No -Primary Dressing Applied Mepilex Border, Promogran Awilda Matter -Mepilex Border 1 -Promogran Awilda Matter 0 ble -Tubular Bandage Single Layer -Size of Tubigrip Used Size F -Size F ($) 2 Treatment Response Procedure Tolerated Well Pain Scale: 0-10 Numeric Is Patient Pain Free? Yes WC - Visit Discharge Discharge Condition Stable Ambulatory Status Ambulatory, Walker Transportation Private Auto Accompanied by daughter Additional Wound Wound debrided: L lateral calf wound Laterality: Left Type of Debridement: Excisional debridement Anesthesia Used: 5% Lidocaine Gel Depth: Down to and including healthy tissue and in the subcutaneous layer Percentage of wound debrided: 100 Instrument Used: 5mm curette Tissue Removed: slough, devitalized tissue Bleeding Controlled with: Pressure Patient tolerated procedure: Patient tolerated procedure well Charges/Coding Visit Charges Office Visits / Consults: [id number] OV L3 Est 20min Procedures Integumentary [id number]: [id number] Larissa subq tissue 20 sq cm/< Assessment/Plan Assessment/Plan (1) Bilateral lower extremity edema: CODE(S): R60.0 - Localized edema (2) Wound of right lower extremity: CODE(S): S81.801A - Unspecified open wound, right lower leg, initial encounter QUALIFIERS: Encounter type: initial encounter Qualified Code(s): S81.801A - Unspecified open wound, right lower leg, initial encounter (3) Wound of left lower extremity: CODE(S): S81.802A - Unspecified open wound, left lower leg, initial encounter QUALIFIERS: Encounter type: initial encounter Qualified Code(s): S81.802A - Unspecified open wound, left lower leg, initial encounter PLAN: Plan Both wounds were debrided today and she tolerated this well. She has been tolerating Doxycycline and Keflex which were started empirically. Wound cultures were obtained today, will adjust antibiotic regimen as indicated by culture and sensitivity results. For wound care: (1) Wash the wounds with soap and water, pat to dry (2) Apply lightly-moistened Awilda to the wound beds (3) Cover with foam border dressing such as Newberry-SAP or Mepilex (4) Change daily or every other day depending upon amount of drainage (5) Change more often as needed if the area becomes soiled or soaked For compression, will apply high-strength Tubigrips. She has Circaids ordered, she is asked to bring these with her when she receives them. She is advised to elevate her legs at times of rest. We discussed implementing Niko supplementation and otherwise ensuring to make dietary choices to support high protein and good glycemic control. As next is 16 of February the wound clinic will be closed. Will plan for her to return to see me in 2 weeks on 02/23. She is instructed to call or return sooner as needed. I will call with culture results and any antibiotics changes as needed.
--- NOTE | 2024-02-16 09:49 | WC ---
PHOTO LEFT LATERAL LOWER LEG 02/10/2024
--- NOTE | 2024-02-16 09:50 | WC ---
PHOTO RIGHT LICONA 02/10/2024
--- NOTE | 2024-02-24 08:44 | WC ---
PHOTO 02/10/2024 LEFT LATERAL LE
--- NOTE | 2024-02-24 08:47 | WC ---
PHOTO 02/10/2024 RIGHT LICONA
== END 2024-02-13 23:59 | disposition home or self-care (01) ==
LOC: WC 14:39
PROVIDERS: PCP Family Medicine; Referring Provider Physician Assistant; Visit Provider Physician Assistant
DX: I87.2 Venous insufficiency (chronic) (peripheral) (principal); L97.222 Non-pressure chronic ulcer of left calf with fat layer exposed; L97.812 Non-pressure chronic ulcer of other part of right lower leg with fat layer exposed; M06.9 Rheumatoid arthritis, unspecified; I82.503 Chronic embolism and thrombosis of unspecified deep veins of lower extremity, bilateral; I10 Essential (primary) hypertension; R60.0 Localized edema; E78.5 Hyperlipidemia, unspecified; Z79.899 Other long term (current) drug therapy; Z79.01 Long term (current) use of anticoagulants; Z86.718 Personal history of other venous thrombosis and embolism; X58.XXXA Exposure to other specified factors, initial encounter
CPT/HCPCS: 11042; 87070; 87075; 87077; 87186; 87205; 99213; G0463

== ENCOUNTER 2024-03-02 14:45 | Outpatient (RCR) | payer MEDICARE, SELFPAY ==
[2024-02-14 00:27] VITALS: BP 155/77; PULSE 88; RESP 16; TEMP 35.7; BMI 35.6
[2024-02-24 15:22] VITALS: BP 162/57; PULSE 78; RESP 18; TEMP 36.6; BMI 35.6
--- NOTE | 2024-02-25 07:32 | PCM.WC.PN ---
History of Present Illness Date of Service: 02/24/24 Chief Complaint: Bilateral lower extremity wounds History of Wound: Mariama De León is a 78 y/o female who presents to the wound care center today for evaluation and management of her bilateral lower extremity wounds. She is accompanied to her appointment today by her daughter who helps with her care. She has had recurrent wounds with very little provocation for the last several months. She has a wound on her L lateral calf which has been present greater than a month and the R miller wound has been present about 1 week. Both were instigated by her bumping her leg against something. She has been caring for these at home by keeping them clean and covered. Last week she noticed increased redness, swelling, and warmth around the RLE wound. A venous duplex was negative for DVT. I started empiric antibiotic treatment with Keflex and Doxycycline which she is tolerating well. She does have significant chronic venous disease with extensive BLE DVTs for which she is on Eliquis. She has a venogram scheduled to assess for central venous compression contributing to her DVTs, edema, and recurrent wounds. She has been using ALLEN bandage for compression. She did recently order Circaids but has not received them yet. She does elevate her legs when resting. She does participate in exercise such as calf pumps and walking as tolerated. She has been dealing with significant BLE edema for several months. Her medical history is otherwise significant for RA. Subjective Subjective She has done very well over the last 2 weeks. They have been managing dressing changes well at home, they have plenty of supplies. She has completed her antibiotics and all signs/symptoms of infection have resolved. Both wounds have significantly improved in size. Her lower extremity edema has improved with compression as well. Objective Data Objective Data Vital Signs: Vital Signs Temp Pulse Resp BP O2 Del Method 97.8 F 78 18 162/57 H Room Air 02/24/24 15:22 02/24/24 15:22 02/24/24 15:22 02/24/24 15:22 02/24/24 15:22 Oxygen Delivery Method Room Air Weight: 182 lb 3.861 oz Body Mass Index (BMI) 35.6 Charges/Coding Procedures Integumentary 111xxx-113xx: [id number] Larissa subq tissue 20 sq cm/< Physical Exam Const alert, oriented x3 and no apparent distress General Appearance: cooperative and comfortable HEENT normocephalic, head/scalp atraumatic, external ears normal and external nose normal Eyes EOMs intact bilaterally General Eye: normal appearance of both eyes Resp normal respiratory effort, no retractions and no use of accessory muscles Effort and Inspection: able to speak in complete sentences; Negative for labored, grunting or stridor Cardio Rate: regular rate Rhythm: regular rhythm Extremity Extremity Narrative: Bilateral lower extremity edema 3+. Circumference measurements as below: (02/10) R ankle 27cm, R calf 46.5 cm --> (02/23) R ankle 25cm, R calf 41 cm (02/10) L ankle 30 cm, L calf 45 cm --> (02/23) L ankle 22.5cm, L calf 39.2 cm Skin Wounds: wounds noted Wound Narrative: R miller wound with moderate slough, pink granulation tissue. Wound edges are viable without evidence of ischemia. There is no apparent tracking or undermining. Erythema and warmth from prior appt has resolved. There is no focal edema. The wound has significantly improved in size. L lateral calf wound with mild slough which once debrided revealed pink granulation tissue at the wound base. No surrounding erythema, warmth. No significant drainage or foul odor. No apparent tunneling or undermining. This wound has also significantly improved in size. Wound measurements as noted in Debridement panel. Psych mental status grossly normal, cooperative, affect normal, speech normal and activity/motor behavior normal Attitude: calm and engaged Debridement Note Debridement Note Wound debrided: R miller Laterality: Right Type of Debridement: Excisional debridement Anesthesia Used: 5% Lidocaine Gel Depth: Down to and including healthy tissue and in the subcutaneous layer Percentage of wound debrided: 100 Instrument Used: 5mm curette Tissue Removed: slough, devitalized tissue Severity: Fat Layer Exposed Amount of bleeding with debridement: Mild Bleeding Controlled with: Pressure Patient tolerated procedure: Patient tolerated procedure well Post-Debridement Measurements and Additional Note: Post-Debridement Measurements/Treatment - Nurse 1 - General Ulcer Assessment Start: 02/24/24 15:20 Freq: Status: Active Protocol: DUY Activity Type Activity Date Activity User E-sign Co-sign Detail Recorded Client Recorded Date Recorded By Document 02/24/24 15:22 KW ; 02/24/24 15:30 KW 02/24/24 15:22 - Today's Visit Information Type of service Follow-up Visit (Physician/SCHEDULER MAINTENANCE ) Arrival Mode Ambulatory, Walker Accompanied by DAUGHTER Patient Identification Verified (Name & Yes ) Height and Weight Body Mass Index (BMI) 35.6 BMI Classification Obese Vital Signs Temperature (97.8 F-99.1 F) 97.8 F Temperature Source Temporal Pulse Rate (60-100) 78 Pulse Location Monitor Respiratory Rate (12-18) 18 Respiratory rate source Observation Oxygen Delivery Method Room Air Blood Pressure (90/60-120/80) 162/57 H Blood Pressure Mean (mm Hg) 92 Source Monitor Position Semi-Fowlers Blood Pressure Location Left Arm History Since Last Visit- (Skip if this is Patient's initial visit) Have you changed medications since your No last visit? Any new allergies or adverse reactions No Had a fall/change in ADL's that may No increase risk of falls Signs or symptoms of abuse and/or No neglect since last visit Have you been in the hospital since your No last visit? Has dressing in place as prescribed Yes Has compression in place as prescribed Yes Has offloadiing in place as prescribed N/A Experienced any changes in pain level or No management Left Footwear Regular Shoe Right Footwear Regular Shoe Pain Scale: 0-10 Numeric Is Patient Pain Free? Yes WC - Nurse 1 - General Ulcer Measurement Start: 02/24/24 15:20 Freq: Status: Active Protocol: Activity Type Activity Date Activity User E-sign Co-sign Detail Recorded Client Recorded Date Recorded By Document 02/24/24 15:22 KW ; 02/24/24 15:30 KW 02/24/24 15:22 Wound Center Nurse 1 #2- L LAT LE -Current Size (cm) - Length 0.1 -Current Size (cm) - Width 0.5 -Current Size (cm) - Depth 0.1 -Total Square Cm 0.05 -Granulation Amt Large (67-100%) -Granulation Quality Red -Texture (Astrid-wound Skin Appearance) Assessed -Moisture (Astrid-wound Skin Appearance) Assessed -Color (Astrid-wound Skin Appearance) Assessed, Hemosiderin Staining -Temperature (Astrid-wound Skin No Abnormality Appearance) (Pt Warm) -Ulcer Cleansing Rinsed/ Irrigated with Saline -Foul Odor after Cleansing No -Anesthetic Used 5% Lidocaine Gel #1- R MILLER LACERATION -Current Size (cm) - Length 3.5 -Current Size (cm) - Width 1.5 -Current Size (cm) - Depth 0.1 -Total Square Cm 5.25 -Exudate Amt Medium -Exudate Type Serosanguineous -Wound Margin Distinct, Outline Attached -Granulation Amt Medium (34-66%) -Granulation Quality Troup,Red -Necrosis Amt Medium (34-66%) -Necrotic Tissue Type Adherent Slough -Texture (Astrid-wound Skin Appearance) Assessed -Moisture (Astrid-wound Skin Appearance) Assessed -Color (Astrid-wound Skin Appearance) Assessed, Hemosiderin Staining -Temperature (Astrid-wound Skin No Abnormality Appearance) (Pt Warm) -Tenderness on Palpation (Astrid-wound No Skin Appearance) -Ulcer Cleansing Rinsed/ Irrigated with Saline -Anesthetic Used 5% Lidocaine Gel Right Calf (cm) 41 Right Ankle (cm) 25 Left Calf (cm) 39.2 Left Ankle (cm) 22.5 WC - Nurse 2 - General Ulcer CM Notes Start: 02/24/24 15:20 Freq: Status: Active Protocol: Activity Type Activity Date Activity User E-sign Co-sign Detail Recorded Client Recorded Date Recorded By Document 02/24/24 16:04 GM 02/24/24 16:06 GM Edit Result 02/24/24 16:04 GM (1) 02/24/24 16:10 GM (1) #1- R MILLER LACERATION - Post Debridement (cm) - Length => 3.4 - Post Debridement (cm) - Width => 1.5 - Post Debridement (cm) - Depth => 0.1 - Total Square (Post) (cm) => 5.10 - Area of Debridement (cm) - Length => 3.4 - Area of Debridement (cm) - Width => 1.5 - Total Square (Area) (cm) => 5.10 02/24/24 16:04 Wound Center Nurse 2 #2- L LAT LE -Time 16:05 -Correct Patient Yes -Correct Side, Site, Position Yes -Correct Procedure Yes -Procedure Performed Yes -Type of Procedure Debridement -Clinical Debridement Subcutaneous -Tissue Removed Subcutaneous -Post Debridement (cm) - Length 0.2 -Post Debridement (cm) - Width 0.3 -Post Debridement (cm) - Depth 0.1 -Total Square (Post) (cm) 0.06 -Area of Debridement (cm) - Length 0.2 -Area of Debridement (cm) - Width 0.3 -Total Square (Area) (cm) 0.06 -Tunneling No -Undermining/Tunneling No -Circular Undermining No -Wound/Ulcer Outcome Not Healed -Ulcer Cleansing Rinsed/ Irrigated with Saline -Foul Odor after Cleansing No -Bioengineered Tissue No -Bleeding Controlled with Pressure -Treatment Response Procedure Tolerated Well -Debridement - Subq, 1st 20sq cm Yes #1- R MILLER LACERATION -Time 16:05 -Correct Patient Yes -Correct Side, Site, Position Yes -Correct Procedure Yes -Procedure Performed Yes -Type of Procedure Debridement -Clinical Debridement Subcutaneous -Tissue Removed Subcutaneous -Post Debridement (cm) - Length 3.4 -Post Debridement (cm) - Width 1.5 -Post Debridement (cm) - Depth 0.1 -Total Square (Post) (cm) 5.10 -Area of Debridement (cm) - Length 3.4 -Area of Debridement (cm) - Width 1.5 -Total Square (Area) (cm) 5.10 -Tunneling No -Undermining/Tunneling No -Circular Undermining No -Wound/Ulcer Outcome Not Healed -Ulcer Cleansing Rinsed/ Irrigated with Saline -Foul Odor after Cleansing No -Bioengineered Tissue No -Bleeding Controlled with Pressure -Treatment Response Procedure Tolerated Well -Debridement - Subq, 1st 20sq cm Yes Pain Scale: 0-10 Numeric Is Patient Pain Free? Yes - Nurse 3 - General Ulcer D/C NN Start: 02/24/24 15:20 Freq: Status: Active Protocol: Activity Type Activity Date Activity User E-sign Co-sign Detail Recorded Client Recorded Date Recorded By Document 02/24/24 16:18 DL ..25.7 02/24/24 16:20 DL 02/24/24 16:18 Wound Care Center Nurse 3 #2- L LAT LE -Ulcer Cleansing Rinsed/ Irrigated with Saline -Foul Odor after Cleansing No -Primary Dressing Applied Mepilex Border, Promogran Danielle Matter -Mepilex Border 1 -Promogran Danielle Matter 1 #1- R MILLER LACERATION -Ulcer Cleansing Rinsed/ Irrigated with Saline -Foul Odor after Cleansing No -Primary Dressing Applied Mepilex Border -Other Dressing danielle -Mepilex Border 1 ble -Other CircAids Treatment Response Procedure Tolerated Well Pain Scale: 0-10 Numeric Is Patient Pain Free? Yes WC - Visit Discharge Discharge Condition Stable Ambulatory Status Ambulatory Transportation Private Auto Additional Wound Wound debrided: L lateral calf wound Laterality: Left Type of Debridement: Excisional debridement Anesthesia Used: 5% Lidocaine Gel Depth: Down to and including healthy tissue and in the subcutaneous layer Percentage of wound debrided: 100 Instrument Used: 5mm curette Tissue Removed: slough, devitalized tissue Bleeding Controlled with: Pressure Patient tolerated procedure: Patient tolerated procedure well Assessment/Plan Assessment/Plan (1) Bilateral lower extremity edema: CODE(S): R60.0 - Localized edema (2) Wound of right lower extremity: CODE(S): S81.801A - Unspecified open wound, right lower leg, initial encounter QUALIFIERS: Encounter type: subsequent encounter Qualified Code(s): S81.801D - Unspecified open wound, right lower leg, subsequent encounter (3) Wound of left lower extremity: CODE(S): S81.802A - Unspecified open wound, left lower leg, initial encounter QUALIFIERS: Encounter type: subsequent encounter Qualified Code(s): S81.802D - Unspecified open wound, left lower leg, subsequent encounter PLAN: Plan Both wounds were debrided today and she tolerated this well. She completed antibiotics last week and remains without any signs/symptoms of infection. For wound care: (1) Wash the wounds with soap and water, pat to dry (2) Apply lightly-moistened Danielle to the wound beds (3) Cover with foam border dressing such as [place]-SAP or Mepilex (4) Change daily or every other day depending upon amount of drainage (5) Change more often as needed if the area becomes soiled or soaked She did receive her circaids and has been using these with significant improvement in her edema. Continue with circaids for compression. She is advised to elevate her legs at times of rest. Continue to focus on increasing protein and decreasing sugar in the diet to support wound healing. Return to the wound clinic in 1 week or sooner as needed.
[2024-03-02 14:48] VITALS: BP 127/69; PULSE 81; RESP 18; TEMP 35.6; BMI 35.6
--- NOTE | 2024-03-02 18:30 | PN.PCM_ITS ---
History of Present Illness Date of Service: 03/02/24 Chief Complaint: Bilateral lower extremity wounds History of Wound: Mariama De León is a 78 y/o female who presents to the wound care center today for evaluation and management of her bilateral lower extremity wounds. She is accompanied to her appointment today by her daughter who helps with her care. She has had recurrent wounds with very little provocation for the last several months. She has a wound on her L lateral calf which has been present greater than a month and the R miller wound has been present about 1 week. Both were instigated by her bumping her leg against something. She has been caring for these at home by keeping them clean and covered. Last week she noticed increased redness, swelling, and warmth around the RLE wound. A venous duplex was negative for DVT. I started empiric antibiotic treatment with Keflex and Doxycycline which she is tolerating well. She does have significant chronic venous disease with extensive BLE DVTs for which she is on Eliquis. She has a venogram scheduled to assess for central venous compression contributing to her DVTs, edema, and recurrent wounds. She has been using ALLEN bandage for compression. She did recently order Circaids but has not received them yet. She does elevate her legs when resting. She does participate in exercise such as calf pumps and walking as tolerated. She has been dealing with significant BLE edema for several months. Her medical history is otherwise significant for RA. Subjective Subjective Her LLE wound has healed. Her RLE wound has made great progress towards healing. They continue to manage the dressing changes well at home. She has not had any recurrent symptoms of infection. She does have venogram next to evaluate for central venous compression which may be contributing to her wounds. She also notes that she has developed a rash underneath her breasts. Objective Data Objective Data Vital Signs: Vital Signs Temp Pulse Resp BP O2 Del Method 96.1 F L 81 18 127/69 H Room Air 03/02/24 14:48 03/02/24 14:48 03/02/24 14:48 03/02/24 14:48 03/02/24 14:48 Oxygen Delivery Method Room Air Weight: 182 lb 3.861 oz Body Mass Index (BMI) 35.6 Charges/Coding Procedures Integumentary [id number]: [id number] Larissa subq tissue 20 sq cm/< Physical Exam Const alert, oriented x3 and no apparent distress General Appearance: cooperative and comfortable HEENT normocephalic, head/scalp atraumatic, external ears normal and external nose normal Eyes EOMs intact bilaterally General Eye: normal appearance of both eyes Resp normal respiratory effort, no retractions and no use of accessory muscles Effort and Inspection: able to speak in complete sentences; Negative for labored, grunting or stridor Cardio Rate: regular rate Rhythm: regular rhythm Extremity Extremity Narrative: Bilateral lower extremity edema 3+. Circumference measurements as below: (02/10) R ankle 27cm, R calf 46.5 cm --> (02/23) R ankle 25cm, R calf 41 cm (02/10) L ankle 30 cm, L calf 45 cm --> (02/23) L ankle 22.5cm, L calf 39.2 cm Skin Wounds: wounds noted Wound Narrative: R miller wound with moderate slough, pink granulation tissue. Wound edges are viable without evidence of ischemia. There is no apparent tracking or undermining. No surrounding erythema and warmth. There is no focal edema. The wound has significantly improved in size. L lateral calf wound is epithelialized. Wound measurements as noted in Debridement panel. Her area of concern under bilateral breasts was examined. In the fold underneath her bilateral breasts there is a large erythematous patch. The area does appear moist. Psych mental status grossly normal, cooperative, affect normal, speech normal and activity/motor behavior normal Attitude: calm and engaged Debridement Note Debridement Note Wound debrided: R miller Laterality: Right Type of Debridement: Excisional debridement Anesthesia Used: 5% Lidocaine Gel Depth: Down to and including healthy tissue and in the subcutaneous layer Percentage of wound debrided: 100 Instrument Used: 5mm curette Tissue Removed: slough, devitalized tissue Severity: Fat Layer Exposed Amount of bleeding with debridement: Mild Bleeding Controlled with: Pressure Patient tolerated procedure: Patient tolerated procedure well Post-Debridement Measurements and Additional Note: Post-Debridement Measurements/Treatment TRIP - Nurse 1 - General Ulcer Assessment Start: 02/24/24 15:20 Freq: Status: Active Protocol: DUY Activity Type Activity Date Activity User E-sign Co-sign Detail Recorded Client Recorded Date Recorded By Document 02/24/24 15:22 KW ; 02/24/24 15:30 KW Document 03/02/24 14:48 KW f 03/02/24 15:00 KW 02/24/24 03/02/24 15:22 14:48 WC - Today's Visit Information Type of service Follow-up Visit Follow-up Visit (Physician/INSTITUTIONAL COMMODITY ANALYST (Physician/INSTITUTIONAL COMMODITY ANALYST ) ) Arrival Mode Ambulatory, Walker Accompanied by DAUGHTER Patient Identification Verified (Name & Yes ) Height and Weight Body Mass Index (BMI) 35.6 35.6 BMI Classification Obese Obese Vital Signs Temperature (97.8 F-99.1 F) 97.8 F 96.1 F L Temperature Source Temporal Temporal Pulse Rate (60-100) 78 81 Pulse Location Monitor Monitor Respiratory Rate (12-18) 18 18 Respiratory rate source Observation Observation Oxygen Delivery Method Room Air Room Air Blood Pressure (90/60-120/80) 162/57 H 127/69 H Blood Pressure Mean (mm Hg) 92 88 Source Monitor Monitor Position Semi-Fowlers Sitting Blood Pressure Location Left Arm Left Arm History Since Last Visit- (Skip if this is Patient's initial visit) Have you changed medications since your No No last visit? Any new allergies or adverse reactions No No Had a fall/change in ADL's that may No No increase risk of falls Signs or symptoms of abuse and/or No No neglect since last visit Have you been in the hospital since your No No last visit? Has dressing in place as prescribed Yes Yes Has compression in place as prescribed Yes No Has offloadiing in place as prescribed N/A No Experienced any changes in pain level or No No management Left Footwear Regular Shoe Regular Shoe Right Footwear Regular Shoe Regular Shoe Pain Scale: 0-10 Numeric Is Patient Pain Free? Yes Yes - Nurse 1 - General Ulcer Measurement Start: 02/24/24 15:20 Freq: Status: Active Protocol: Activity Type Activity Date Activity User E-sign Co-sign Detail Recorded Client Recorded Date Recorded By Document 02/24/24 15:22 KW ; 02/24/24 15:30 KW Document 03/02/24 14:48 KW f 03/02/24 15:00 KW 02/24/24 03/02/24 15:22 14:48 Wound Center Nurse 1 #2- L LAT LE -Current Size (cm) - Length 0.1 -Current Size (cm) - Width 0.5 -Current Size (cm) - Depth 0.1 -Total Square Cm 0.05 -Date of Last Picture (Recall this 03/02/24 field) -Granulation Amt Large (67-100%) -Granulation Quality Red -Texture (Astrid-wound Skin Appearance) Assessed Assessed -Moisture (Astrid-wound Skin Appearance) Assessed Assessed -Color (Astrid-wound Skin Appearance) Assessed, Assessed Hemosiderin Staining -Temperature (Astrid-wound Skin No Abnormality Appearance) (Pt Warm) -Tenderness on Palpation (Astrid-wound No Skin Appearance) -Ulcer Cleansing Rinsed/ Rinsed/ Irrigated with Irrigated with Saline Saline -Foul Odor after Cleansing No No -Anesthetic Used 5% Lidocaine Gel #1- R MILLER LACERATION -Current Size (cm) - Length 3.5 0.6 -Current Size (cm) - Width 1.5 0.1 -Current Size (cm) - Depth 0.1 0.1 -Total Square Cm 5.25 0.06 -Date of Last Picture (Recall this 03/02/24 field) -Exudate Amt Medium Small -Exudate Type Serosanguineous Serosanguineous -Wound Margin Distinct, Distinct, Outline Outline Attached Attached -Granulation Amt Medium (34-66%) Large (67-100%) -Granulation Quality [place],Red [place] -Necrosis Amt Medium (34-66%) -Necrotic Tissue Type Adherent Slough -Texture (Astrid-wound Skin Appearance) Assessed Assessed -Moisture (Astrid-wound Skin Appearance) Assessed Assessed -Color (Astrid-wound Skin Appearance) Assessed, Assessed Hemosiderin Staining -Temperature (Astrid-wound Skin No Abnormality No Abnormality Appearance) (Pt Warm) (Pt Warm) -Tenderness on Palpation (Astrid-wound No No Skin Appearance) -Ulcer Cleansing Rinsed/ Rinsed/ Irrigated with Irrigated with Saline Saline -Foul Odor after Cleansing No -Anesthetic Used 5% Lidocaine 5% Lidocaine Gel Gel Right Calf (cm) 41 Right Ankle (cm) 25 Left Calf (cm) 39.2 Left Ankle (cm) 22.5 WC - Nurse 2 - General Ulcer CM Notes Start: 02/24/24 15:20 Freq: Status: Active Protocol: Activity Type Activity Date Activity User E-sign Co-sign Detail Recorded Client Recorded Date Recorded By Document 02/24/24 16:04 GM 02/24/24 16:06 GM Edit Result 02/24/24 16:04 GM (1) 02/24/24 16:10 GM Document 03/02/24 15:28 GM 03/02/24 15:32 GM (1) #1- R MILLER LACERATION - Post Debridement (cm) - Length => 3.4 - Post Debridement (cm) - Width => 1.5 - Post Debridement (cm) - Depth => 0.1 - Total Square (Post) (cm) => 5.10 - Area of Debridement (cm) - Length => 3.4 - Area of Debridement (cm) - Width => 1.5 - Total Square (Area) (cm) => 5.10 02/24/24 03/02/24 16:04 15:28 Wound Center Nurse 2 #2- L LAT LE -Time 16:05 15:28 -Correct Patient Yes Yes -Correct Side, Site, Position Yes Yes -Correct Procedure Yes -Procedure Performed Yes -Type of Procedure Debridement -Clinical Debridement Subcutaneous -Tissue Removed Subcutaneous -Post Debridement (cm) - Length 0.2 -Post Debridement (cm) - Width 0.3 -Post Debridement (cm) - Depth 0.1 -Total Square (Post) (cm) 0.06 -Area of Debridement (cm) - Length 0.2 -Area of Debridement (cm) - Width 0.3 -Total Square (Area) (cm) 0.06 -Tunneling No -Undermining/Tunneling No -Circular Undermining No -Wound/Ulcer Outcome Not Healed Healed- Epithelialized -Ulcer Cleansing Rinsed/ Irrigated with Saline -Foul Odor after Cleansing No -Bioengineered Tissue No -Bleeding Controlled with Pressure -Treatment Response Procedure Tolerated Well -Debridement - Subq, 1st 20sq cm Yes #1- R MILLER LACERATION -Time 16:05 15:29 -Correct Patient Yes Yes -Correct Side, Site, Position Yes Yes -Correct Procedure Yes Yes -Procedure Performed Yes Yes -Type of Procedure Debridement Debridement -Clinical Debridement Subcutaneous Subcutaneous -Tissue Removed Subcutaneous Subcutaneous -Post Debridement (cm) - Length 3.4 2.9 -Post Debridement (cm) - Width 1.5 0.3 -Post Debridement (cm) - Depth 0.1 0.1 -Total Square (Post) (cm) 5.10 0.87 -Area of Debridement (cm) - Length 3.4 2.9 -Area of Debridement (cm) - Width 1.5 0.3 -Total Square (Area) (cm) 5.10 0.87 -Tunneling No No -Undermining/Tunneling No No -Circular Undermining No No -Wound/Ulcer Outcome Not Healed Not Healed -Ulcer Cleansing Rinsed/ Rinsed/ Irrigated with Irrigated with Saline Saline -Foul Odor after Cleansing No No -Bioengineered Tissue No No -Bleeding Controlled with Pressure Pressure -Treatment Response Procedure Procedure Tolerated Well Tolerated Well -Debridement - Subq, 1st 20sq cm Yes Yes Pain Scale: 0-10 Numeric Is Patient Pain Free? Yes Yes - Nurse 3 - General Ulcer D/C NN Start: 02/24/24 15:20 Freq: Status: Active Protocol: Activity Type Activity Date Activity User E-sign Co-sign Detail Recorded Client Recorded Date Recorded By Document 02/24/24 16:18 DL [id number] 02/24/24 16:20 DL Document 03/02/24 15:45 KW f 03/02/24 15:46 KW 02/24/24 03/02/24 16:18 15:45 Wound Care Center Nurse 3 #2- L LAT LE -Ulcer Cleansing Rinsed/ Irrigated with Saline -Foul Odor after Cleansing No -Primary Dressing Applied Mepilex Border, Promogran Danielle Matter -Mepilex Border 1 -Promogran Danielle Matter 1 #1- R MILLER LACERATION -Ulcer Cleansing Rinsed/ Irrigated with Saline -Foul Odor after Cleansing No -Primary Dressing Applied Mepilex Border Melgisorb AG, Promogran Danielle Matter -Other Dressing danielle -Melgisorb AG 1 -Mepilex Border 1 -Promogran Danielle Matter 1 ble -Other CircAids PERSONAL CIRCAIDS Treatment Response Procedure Tolerated Well Pain Scale: 0-10 Numeric Is Patient Pain Free? Yes Yes - Visit Discharge Discharge Condition Stable Stable Ambulatory Status Ambulatory Ambulatory, Walker Transportation Private Auto Medication Reconcilliation completed & No provided to patient/care provider Clinical Summary of Care Provided Yes Assessment/Plan Assessment/Plan (1) Bilateral lower extremity edema: CODE(S): R60.0 - Localized edema (2) Wound of right lower extremity: CODE(S): S81.801A - Unspecified open wound, right lower leg, initial encounter QUALIFIERS: Encounter type: subsequent encounter Qualified Code(s): S81.801D - Unspecified open wound, right lower leg, subsequent encounter PLAN: This is a R miller wound with fat layer exposed. (3) Wound of left lower extremity: CODE(S): S81.802A - Unspecified open wound, left lower leg, initial encounter QUALIFIERS: Encounter type: subsequent encounter Qualified Code(s): S81.802D - Unspecified open wound, left lower leg, subsequent encounter PLAN: Healed PLAN: Plan LLE wound is healed. RLE wound was debrided which she tolerated well. No signs/symptoms of infection. For wound care: (1) Wash the wound with soap and water, pat to dry (2) Apply lightly-moistened Danielle to the wound beds (3) Cover with foam border dressing such as [place]-SAP or Mepilex (4) Change daily or every other day depending upon amount of drainage (5) Change more often as needed if the area becomes soiled or soaked Continue with circaids for compression. She is advised to elevate her legs at times of rest. Continue to focus on increasing protein and decreasing sugar in the diet to support wound healing. Rash in the intramammary region has appearance consistent with intertrigo. I have prescribed nystatin power to be applied BID. Will monitor. Return to the wound clinic in 1 week or sooner as needed.
--- NOTE | 2024-03-03 11:28 | WC ---
PHOTO 03/02/2024 LEFT LATERAL LOWER EXT.
--- NOTE | 2024-03-03 11:31 | WC ---
PHOTO 03/02/24 RIGHT LICONA
--- NOTE | 2024-03-15 09:33 | WC ---
PHOTO 03/02/24 LEFT LATERAL LE
--- NOTE | 2024-03-15 09:35 | WC ---
PHOTO 03/02/24 RIGHT LICONA
== END 2024-03-15 23:59 | disposition home or self-care (01) ==
LOC: WC 14:45
PROVIDERS: PCP Family Medicine; Referring Provider Physician Assistant; Visit Provider Physician Assistant
DX: S81.811A Laceration without foreign body, right lower leg, initial encounter (principal); M06.9 Rheumatoid arthritis, unspecified; R60.0 Localized edema; R21 Rash and other nonspecific skin eruption; Z86.718 Personal history of other venous thrombosis and embolism; Z79.01 Long term (current) use of anticoagulants; X58.XXXA Exposure to other specified factors, initial encounter
CPT/HCPCS: 11042

== ENCOUNTER 2024-03-09 08:42 | Day surgery (SDC) | payer MEDICARE, SELFPAY ==
[2024-03-08 07:44] VITALS: BMI 32.2
[2024-03-09 09:02] LABS: Absolute Lymphocyte Count 2.98 X10^3/uL (0.83-4.51); Absolute Neutrophil Count 7.8 X10^3/uL (2.0-7.7); Basophil# 0.09 X10^3/uL; Basophil% 0.8 % (0-1); Eosinophil# 0.18 X10^3/uL; Eosinophils% 1.5 % (0-5); Hematocrit 40.8 % (37-47); Lymphocyte # 2.98 X10^3/ul (0.83-4.51); Lymphocyte % 24.9 % (19-41); Mean Corp Hgb Conc 31.9 g/dL (32-36); Mean Corpuscular Hgb 30.8 pg (27.0-32.0); Mean Corpuscular Volume 96.7 fL (81-99); Monocyte# 0.91 X10^3/uL; Monocyte% 7.6 % (0-10); NRBC Flagged by Analyzer 0 % (0-5); Neutrophil # 7.76 X10^3/uL (2.7-7.7); Neutrophil % 64.9 % (47-70); Platelet Count 259 K/mm3 (150-450); RBC Distribution Width SD 45.9 fl (35.1-43.9); Red Blood Count 4.22 M/mm3 (4.2-5.4)
[2024-03-09 09:23] LABS: Anion Gap 3 (5-15); BUN 15 mg/dL (7-18); BUN/Creat Ratio 18.9 RATIO (10-20); Calcium,Total 9.6 mg/dL (8.5-10.1); Chloride 108 mmol/L (98-107); EST Glomerular Filtration Rate 74 mL/min (>60); Est Glom Filt Rate - Afr Amer 90 mL/min (>60); Estimated Creatinine Clearance 56.25 ml/min; Glucose 98 mg/dL (74-106); Potassium 3.4 mmol/L (3.5-5.1); Sodium Level 142 mmol/L (136-145)
--- NOTE | 2024-03-09 09:59 | PCM.HP.STD ---
HPI - General HPI Narrative IVANA HERNANDEZ, is a 78 F who presents with bilateral edema, venous ulceration, unprovoked DVT. [facility] History Wound of right lower extremity Leukocytosis HTN (hypertension) Chronic neuropathic pain RLS (restless legs syndrome) HLD (hyperlipidemia) Rheumatoid arthritis Hypertension DVT (deep venous thrombosis) Home Medications ?Medication ?Instructions ?Recorded ?Last Taken ?Type gabapentin 100 mg capsule 100 mg PO BID neuropathy 12/17/22 10/01/23 History ropinirole 1 mg tablet 1 mg PO QHS restless legs 12/17/22 09/30/23 History rosuvastatin 10 mg tablet 10 mg PO QHS cholesterol 12/17/22 09/30/23 History cholecalciferol (vitamin D3) 50 50 mcg PO DAILY 08/24/23 10/01/23 History mcg (2,000 unit) capsule telmisartan 20 mg tablet 20 mg PO DAILY 09/01/23 10/01/23 History magnesium 200 mg tablet 200 mg PO BID 09/28/23 10/01/23 History torsemide 20 mg tablet 30 mg PO DAILY PRN edema 10/01/23 09/30/23 History apixaban 5 mg tablet (Eliquis) 5 mg PO BID #60 tabs 10/13/23 Unknown Rx donepezil 10 mg tablet 10 mg PO QHS #90 tabs 12/21/23 Unknown Rx silver 1.2 %-foam bandage 4 X 4 1 ea topical DAILY #10 ea 02/02/24 Unknown Rx (Aquacel AG Foam) furosemide 20 mg tablet 20 mg PO DAILY 02/10/24 Unknown History nystatin 100,000 unit/gram topical 1 applic topical BID #60 grams 03/02/24 Unknown Rx powder budesonide 3 mg 9 mg (3 x 3 mg) PO DAILY #90 ea 03/06/24 Unknown Rx capsule,delayed,extended release Allergy/AdvReac Type Severity Reaction Status Date / Time No Known Allergies Allergy Verified 02/10/24 15:20 Family History Mother Pancreatic cancer Father Heart disease Hypertension Surgical History History of ankle surgery History of tonsillectomy and adenoidectomy H/O: hysterectomy Social History household members: none current occupational status: retired current occupation: [employer] Smoking Status: Never smoker alcohol intake: never substance use type: does not use ROS Constitutional Constitutional: Denies chills, fever(s), frequent falls, lethargy or weakness Eyes Eyes: Denies blind spots, change in vision or loss of vision ENT HEENT: Denies bleeding gums, hoarseness or sore throat Cardiovascular Cardiovascular: Denies abdominal pain, bluish discoloration of hand/feet, chest pain with activity, claudication, cold extremities, cyanosis, dyspnea on exertion, erythema on extremities, irregular heart rhythm, leg edema, leg ulcers, numbness in extremities or weakness in extremities Respiratory/Chest Respiratory/Chest: Denies cough, excessive phlegm production, shortness of breath at rest, shortness of breath with exertion or wheezing Gastrointestinal Gastrointestinal: Denies anorexia, change in stool character, constipation, diarrhea, melena or rectal bleeding Genitourinary Genitourinary: Denies dysuria or hematuria Musculoskeletal Musculoskeletal: Denies abnormal gait Integumentary Integumentary: Reports other Details: ; Denies erythema, non-healing lesions or wounds Neurologic Neurologic: Denies abnormal speech, focal weakness, headache(s), loss of vision, numbness, paresthesias or sensory deficit Hematologic/Lymphatic Hematologic/Lymphatic: Denies easy bleeding, easy bruising or lymphadenopathy Vital Signs Vital Signs Vital Signs: Weight Weight: 183 lb Body Mass Index (BMI) 32.2 Physical Exam Const alert, oriented x3, no apparent distress and healthy appearing General Appearance: cooperative; Negative for combative or lethargic Orientation / Consciousness: awake Exam Limitations: no limitations HEENT Head and Scalp: normocephalic and atraumatic Eyes EOMs intact bilaterally General Eye: normal appearance of both eyes Neck full ROM, no lymphadenopathy and thyroid normal General: trachea midline; Negative for lymphadenopathy or tenderness Thyroid: thyroid normal Resp normal respiratory effort and no use of accessory muscles Effort and Inspection: Negative for labored, stridor or audible wheezes Cardio regular rate and regular rhythm Back/Spine Cervical Spine: cervical ROM normal Extremity full ROM, normal capillary refill and no clubbing, cyanosis or edema Skin no rashes or lesions noted and no wounds Neuro oriented x3, CN's II-XII intact bilaterally, no focal motor deficits and no sensory deficits noted Psych thought process normal, cooperative, affect normal, speech normal and activity/motor behavior normal Results Lab / Micro Data 03/09/24 08:47 03/09/24 08:47 Labs: Laboratory Results - last 24 hr 03/09/24 08:47: WBC 12.0 H, RBC 4.22, Hgb 13.0, Hct 40.8, MCV 96.7, MCH 30.8, MCHC 31.9 L, RDW Std Deviation 45.9 H, RDW Coeff of Chandan 13.0, Plt Count 259, MPV 10.0, Immature Gran % (Auto) 0.300, Neut % (Auto) 64.9, Lymph % (Auto) 24.9, [place] % (Auto) 7.6, Eos % (Auto) 1.5, Baso % (Auto) 0.8, Absolute Neuts (auto) 7.8 H, Absolute Lymphs (auto) 2.98, Nucleated RBC % 0, Sodium 142, Potassium 3.4 L, Chloride 108 H, Carbon Dioxide 31.0, Anion Gap 3 L, BUN 15, Creatinine 0.80, Estim Creat Clear Calc 56.25, Est GFR (MDRD) Af Amer 90, Est GFR (MDRD) Non-Af 74, BUN/Creatinine Ratio 18.9, Glucose 98, Calcium 9.6 Assessment & Plan Assessment/Plan (1) DVT (deep venous thrombosis): QUALIFIERS: DVT location: lower extremity Affected thrombotic vein of extremity: femoral Chronicity: chronic Laterality: bilateral Qualified Code(s): I82.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
--- NOTE | 2024-03-09 11:49 | PCM.OPRPT ---
Report of Operation Date of Procedure: 03/09/24 Pre-Operative Diagnosis: DVT Post-Operative Diagnosis: Same, bilateral iliac compression Surgery/Procedure Performed:: Venogram IVC IVUS IVC, bilateral common/external iliac veins Surgeon: Gui Mccain Type of Anesthesia: Local and Sedation,Conscious Estimated Blood Loss (mL): 5 Description of Procedure: HPI: Patient is a 78-year-old female with history of thrombosis chronic retention lateral ulcerations. She had noninvasive vascular studies which revealed no significant reflux so she presents now for venogram in search of possible central venous obstruction. Description procedure: Upon obtaining form consent and verification. Patient procedure site patient taken to [facility] where she was positioned prepped and draped in usual sterile fashion. Time was performed and conscious sedation administered Versed and fentanyl. Skin overlying the right common femoral vein was anesthetized 1% lidocaine the vessel accessed under ultrasound guidance with a micropuncture needle wire. This was then exchanged for micropuncture sheath through which injection ilio caval venogram was performed revealed satisfactory placement with no extravasation or dissection. This also revealed irregular luminal content or and small caliber right external iliac vein. Through the micropuncture sheath Bentson wire was advanced and the micropuncture sheath exchanged out for a 10 [place] sheath. Next skin overlying the left common femoral vein was anesthetized 1% lidocaine the vessel accessed under ultrasound guidance with a micropuncture needle wire. This then exchanged for micropuncture sheath through which hand-injection ilio caval venogram was performed which revealed widening and diminished opacification of the common iliac vein. Through the micropuncture sheath a glide advantage wire was advanced and the micropuncture sheath exchanged for a 10 [place] sheath. Through the right femoral access sheath and intravascular ultrasound probe was advanced and recorded pullback performed of the IVC, right common iliac vein, right external iliac vein. This revealed 61% compression of the right external iliac vein. The probe was then withdrawn and advanced via the left femoral access sheath and recorded pullback performed of the IVC, left common iliac vein, left external leg vein. This revealed 60% compression of the left common iliac vein with a secondary of compression that was less severe in the proximal external iliac vein. It was felt that the vessels bilaterally warranted treatment so the patient was heparinized and allowed to circulate for 3 minutes. Intravascular shunt probe was then readvanced and position of compression and vessel confluence is marked and appropriate size stent selected based on our IVUS measurements. First a 16 x 120 Bard Venovo venous stent was advanced via the left femoral access sheath and positioned just below the IVC confluence. This was then deployed and postdilated first with a 16 mm angioplasty balloon in the common iliac followed by a 14 mm angioplasty balloon in the external iliac. Next a 16 x 100 and Bard Venovo stent was advanced into the right femoral access sheath and positioned in the external iliac vein and deployed. This was then postdilated to 14 mm angioplasty balloon. Completion venography revealed brisk contrast transit with no extravasation or dissection. Intravascular ultrasound recorded pullback was then performed and this revealed satisfactory stent positioning bilaterally with good stent wall apposition with no residual compression. Wires and catheters then withdrawn and a silk suture was placed at the access site after which the access sheath withdrawn and manual pressure held for 5 minutes. Patient was then taken to the recovery room with anticipated discharged home. Grafts/Implants Used: Left- [id number] Venovo, Right [id number] Venovo
== END 2024-03-09 13:15 | disposition home or self-care (01) ==
PROVIDERS: PCP Family Medicine; Referring Provider Surgery Trauma Surgery; Visit Provider Surgery Trauma Surgery
DX: I82.513 Chronic embolism and thrombosis of femoral vein, bilateral (principal); E78.5 Hyperlipidemia, unspecified; I10 Essential (primary) hypertension; R60.0 Localized edema; I87.1 Compression of vein
CPT/HCPCS: 36010; 36415; 37238; 37252; 37253; 75825; 76937; 80048; 85025; 99152; 99153; C1725; C1753; C1769; C1876; C1894; J7040; Q9967

== ENCOUNTER 2024-03-16 14:33 | Outpatient (RCR) | payer MEDICARE, SELFPAY ==
[2024-03-16 00:41] VITALS: BP 155/77; PULSE 88; RESP 16; TEMP 35.7; BMI 35.6
[2024-03-16 15:00] VITALS: BP 136/76; PULSE 80; RESP 16; TEMP 36.6; BMI 35.6
--- NOTE | 2024-03-16 18:03 | PN.PCM_ITS ---
History of Present Illness Date of Service: 03/16/24 Chief Complaint: Bilateral lower extremity wounds History of Wound: Mariama De León is a 78 y/o female who presents to the wound care center today for evaluation and management of her bilateral lower extremity wounds. She is accompanied to her appointment today by her daughter who helps with her care. She has had recurrent wounds with very little provocation for the last several months. She has a wound on her L lateral calf which has been present greater than a month and the R miller wound has been present about 1 week. Both were instigated by her bumping her leg against something. She has been caring for these at home by keeping them clean and covered. Last week she noticed increased redness, swelling, and warmth around the RLE wound. A venous duplex was negative for DVT. I started empiric antibiotic treatment with Keflex and Doxycycline which she is tolerating well. She does have significant chronic venous disease with extensive BLE DVTs for which she is on Eliquis. She has a venogram scheduled to assess for central venous compression contributing to her DVTs, edema, and recurrent wounds. She has been using ALLEN bandage for compression. She did recently order Circaids but has not received them yet. She does elevate her legs when resting. She does participate in exercise such as calf pumps and walking as tolerated. She has been dealing with significant BLE edema for several months. Her medical history is otherwise significant for RA. Subjective Subjective Mariama returns to the wound center today for follow-up of her RLE wound. She reports this has healed. Last week she underwent venogram with iliac vein stenting, she tolerated this well. She does have sutures in place from this procedure which need to be removed today. She has continued to use CircAid's daily and has noticed significant improvement in her edema at this. She has been using the nystatin powder on the rash under her breasts with significant improvement. Objective Data Objective Data Vital Signs: Vital Signs Temp Pulse Resp BP 97.9 F 80 16 136/76 H 03/16/24 15:00 03/16/24 15:00 03/16/24 15:00 03/16/24 15:00 Weight: 182 lb 3.861 oz Body Mass Index (BMI) 35.6 Charges/Coding Visit Charges Office Visits / Consults: 00501 OV L3 Est 20min Physical Exam Const alert, oriented x3 and no apparent distress General Appearance: cooperative and comfortable HEENT normocephalic, head/scalp atraumatic, external ears normal and external nose normal Eyes EOMs intact bilaterally General Eye: normal appearance of both eyes Resp normal respiratory effort, no retractions and no use of accessory muscles Effort and Inspection: able to speak in complete sentences; Negative for labored, grunting or stridor Cardio Rate: regular rate Rhythm: regular rhythm Extremity Extremity Narrative: Bilateral lower extremity edema 1+ Skin Wounds: wounds noted Wound Narrative: R miller wound has epithelialized. L lateral calf wound is epithelialized. Psych mental status grossly normal, cooperative, affect normal, speech normal and activity/motor behavior normal Attitude: calm and engaged Debridement Note Debridement Note No debridement was completed: No debridement was completed today Post-Debridement Measurements and Additional Note: Post-Debridement Measurements/Treatment - Nurse 1 - General Ulcer Assessment Start: 03/16/24 15:00 Freq: Status: Active Protocol: [id number] Activity Type Activity Date Activity User E-sign Co-sign Detail Recorded Client Recorded Date Recorded By Document 03/16/24 15:00 03/16/24 15:06 03/16/24 15:00 - Today's Visit Information Type of service Follow-up Visit (Physician/IT GENERALIST ) Arrival Mode Ambulatory, Walker Transfer Assistance None Patient Requires Transmission-Based Yes Precautions Safety Precautions NA Height and Weight Body Mass Index (BMI) 35.6 BMI Classification Obese Vital Signs Temperature (97.8 F-99.1 F) 97.9 F Temperature Source Temporal Pulse Rate (60-100) 80 Pulse Location Monitor Respiratory Rate (12-18) 16 Respiratory rate source Observation Blood Pressure (90/60-120/80) 136/76 H Blood Pressure Mean (mm Hg) 96 Source Monitor Position Sitting Blood Pressure Location Left Arm History Since Last Visit- (Skip if this is Patient's initial visit) Have you changed medications since your Yes last visit? Any new allergies or adverse reactions No Had a fall/change in ADL's that may No increase risk of falls Signs or symptoms of abuse and/or No neglect since last visit Have you been in the hospital since your No last visit? Has dressing in place as prescribed Yes Has compression in place as prescribed Yes Has offloadiing in place as prescribed N/A Experienced any changes in pain level or No management Pain Scale: 0-10 Numeric Is Patient Pain Free? Yes WC - Nurse 1 - General Ulcer Measurement Start: 03/16/24 15:00 Freq: Status: Active Protocol: Activity Type Activity Date Activity User E-sign Co-sign Detail Recorded Client Recorded Date Recorded By Document 03/16/24 15:00 CP 03/16/24 15:06 CP 03/16/24 15:00 Wound Center Nurse 1 #2- L LAT LE -Current Size (cm) - Length 0 -Current Size (cm) - Width 0 -Current Size (cm) - Depth 0 -Total Square Cm 0 #1- R MILLER LACERATION -Current Size (cm) - Length 0 -Current Size (cm) - Width 0 -Current Size (cm) - Depth 0 -Total Square Cm 0 -Date of Last Picture (Recall this 03/16/24 field) -Photo Taken Yes -Epithelialization Large 67-100% Lower Limb Edema Present No WC - Nurse 2 - General Ulcer CM Notes Start: 03/16/24 15:00 Freq: Status: Active Protocol: Activity Type Activity Date Activity User E-sign Co-sign Detail Recorded Client Recorded Date Recorded By Document 03/16/24 15:13 [facility] [email or web address] 03/16/24 15:15 [facility] 03/16/24 15:13 Wound Center Nurse 2 #1- R MILLER LACERATION -Post Debridement (cm) - Length 0 -Post Debridement (cm) - Width 0 -Post Debridement (cm) - Depth 0 -Total Square (Post) (cm) 0 -Area of Debridement (cm) - Length 0 -Area of Debridement (cm) - Width 0 -Total Square (Area) (cm) 0 -Wound/Ulcer Outcome Healed- Epithelialized -Wound Comment(s) SUTURE REMVAL L GROIN AREA Pain Scale: 0-10 Numeric Is Patient Pain Free? Yes - Nurse 3 - General Ulcer D/C NN Start: 03/16/24 15:00 Freq: Status: Active Protocol: Activity Type Activity Date Activity User E-sign Co-sign Detail Recorded Client Recorded Date Recorded By Document 03/16/24 15:23 KW f 03/16/24 15:24 KW 03/16/24 15:23 Wound Care Center Nurse 3 ble -Other PT OWN CIRCAIDS Pain Scale: 0-10 Numeric Is Patient Pain Free? Yes - Visit Discharge Discharge Condition Stable Ambulatory Status Ambulatory Transportation Private Auto Accompanied by DAUGHTER Medication Reconcilliation completed & No provided to patient/care provider Clinical Summary of Care Provided Yes Notes: HEALED Assessment/Plan Assessment/Plan (1) Bilateral lower extremity edema: CODE(S): R60.0 - Localized edema (2) Wound of right lower extremity: CODE(S): S81.801A - Unspecified open wound, right lower leg, initial encounter QUALIFIERS: Encounter type: subsequent encounter Qualified Code(s): S81.801D - Unspecified open wound, right lower leg, subsequent encounter PLAN: This is a R miller wound with fat layer exposed. (3) Wound of left lower extremity: CODE(S): S81.802A - Unspecified open wound, left lower leg, initial encounter QUALIFIERS: Encounter type: subsequent encounter Qualified Code(s): S81.802D - Unspecified open wound, left lower leg, subsequent encounter PLAN: Healed PLAN: Plan Right lower extremity wound is healed today. Sutures from bilateral groin access sites were removed today without issue. There is moist with some superficial skin breakdown. She is advised to apply dry gauze dressing and change this daily or more often as needed to keep the area clean and dry over the next 7 to 10 days. She does have follow-up scheduled with me in the vascular surgery office on 04/04/2024 but is advised to contact me to be seen sooner if she has any concerns about this area. She advised to continue with daily use of CircAid's for compression to prevent wound recurrence. She is discharged from the wound healing center today and may return as needed.
--- NOTE | 2024-03-17 08:46 | WC ---
PHOTO 03/16/24 RIGHT LEG
--- NOTE | 2024-03-20 09:48 | WC ---
PHOTO 03/16/24 RIGHT LEG
== END 2024-03-17 08:34 | disposition home or self-care (01) ==
LOC: WC 14:33
PROVIDERS: PCP Family Medicine; Referring Provider Physician Assistant; Visit Provider Physician Assistant
DX: Z09 Encounter for follow-up examination after completed treatment for conditions other than malignant neoplasm (principal); R21 Rash and other nonspecific skin eruption; R60.0 Localized edema; Z79.01 Long term (current) use of anticoagulants; Z79.02 Long term (current) use of antithrombotics/antiplatelets; Z79.899 Other long term (current) drug therapy; Z86.718 Personal history of other venous thrombosis and embolism
CPT/HCPCS: 99213; G0463

== ENCOUNTER 2024-04-20 15:30 | Outpatient (RCR) | payer MEDICARE, SELFPAY ==
[2024-04-13 14:09] VITALS: BP 131/65; PULSE 77; RESP 18; TEMP 36
[2024-04-20 15:18] VITALS: BP 113/63; PULSE 79; RESP 18; TEMP 36.5
== END 2024-04-20 23:59 | disposition home or self-care (01) ==
LOC: WC 15:30
PROVIDERS: PCP Family Medicine; Referring Provider Family Medicine; Visit Provider Physician Assistant
DX: S81.011A Laceration without foreign body, right knee, initial encounter (principal); S81.022A Laceration with foreign body, left knee, initial encounter; V86.49XA Person injured while boarding or alighting from other special all-terrain or other off-road motor vehicle, initial encounter; S00.83XA Contusion of other part of head, initial encounter; I10 Essential (primary) hypertension; E78.5 Hyperlipidemia, unspecified; R60.0 Localized edema; Z79.01 Long term (current) use of anticoagulants; Z79.02 Long term (current) use of antithrombotics/antiplatelets; Z79.899 Other long term (current) drug therapy; Z86.718 Personal history of other venous thrombosis and embolism
CPT/HCPCS: 11042; 11045

== ENCOUNTER → 2024-04-25 | Outpatient (CLI) | payer MEDICARE, SELFPAY ==
[2024-04-27 15:08] LABS: Albumin 3.1 g/dL (2.9-4.4); Alpha-1-Globulins 0.2 g/dL (0.0-0.4); Gamma Globulin 0.7 g/dL (0.4-1.8); Immunoglobulin A 460 mg/dL (64-422); Immunoglobulin G 674 mg/dL (586-1602); Immunoglobulin M 40 mg/dL (26-217)
== END | disposition home or self-care (01) ==
LOC: MTLAB 15:46
PROVIDERS: PCP Family Medicine; Referring Provider Psychiatry & Neurology Neurology; Visit Provider Psychiatry & Neurology Neurology
DX: G62.9 Polyneuropathy, unspecified (principal)
CPT/HCPCS: 36415; 82784; 84165; 86334

== ENCOUNTER → 2024-04-26 | Outpatient (CLI) | payer MEDICARE, SELFPAY | END | disposition home or self-care (01) | LOC: MTLAB 16:50 | PROVIDERS: PCP Family Medicine; Referring Provider Psychiatry & Neurology Neurology; Visit Provider Psychiatry & Neurology Neurology | DX: G62.9 Polyneuropathy, unspecified (principal) | CPT/HCPCS: 86335 ==

== ENCOUNTER 2024-04-27 15:16 | Outpatient (RCR) | payer MEDICARE, SELFPAY ==
[2024-04-21 00:06] VITALS: BP 113/63; PULSE 79; RESP 18; TEMP 36.5
[2024-04-27 15:32] VITALS: BP 128/55; PULSE 68; RESP 18; TEMP 35.9
== END 2024-05-15 23:59 | disposition home or self-care (01) ==
LOC: WC 15:16
PROVIDERS: PCP Family Medicine; Referring Provider Family Medicine; Visit Provider Physician Assistant
DX: Z09 Encounter for follow-up examination after completed treatment for conditions other than malignant neoplasm (principal); S81.012D Laceration without foreign body, left knee, subsequent encounter; S81.011D Laceration without foreign body, right knee, subsequent encounter; S00.83XD Contusion of other part of head, subsequent encounter; V86.4 Person injured while boarding or alighting from special all-terrain or other off-road motor vehicle; R60.0 Localized edema; Z79.01 Long term (current) use of anticoagulants; Z79.02 Long term (current) use of antithrombotics/antiplatelets; Z79.899 Other long term (current) drug therapy; Z86.718 Personal history of other venous thrombosis and embolism
CPT/HCPCS: 97597

== ENCOUNTER 2024-05-11 17:45 | Outpatient (RCR) | payer MEDICARE, SELFPAY | END 2024-05-11 19:00 | disposition home or self-care (01) | LOC: PT 17:45 | PROVIDERS: PCP Family Medicine; Visit Provider Family Medicine | DX: S32.000D Wedge compression fracture of unspecified lumbar vertebra, subsequent encounter for fracture with routine healing (principal) | CPT/HCPCS: 97161 ==